=== PATIENT | female | born 1970 | race American Indian/Alaskan Native ===

== ENCOUNTER 2017-03-08 11:59 | Inpatient (IN) | payer BC ==
[2017-03-08 12:45] LABS: Basophils % (Auto) 1.1 % (0.0-1.8); Eosinophils % (Auto) 0.1 % (0.0-4.3); Hematocrit 46.8 % (30.3-42.9); Hemoglobin 15.5 gm/dl (10.1-14.3); Mean Corpuscular HGB Conc 33 % (30-34); Mean Corpuscular Hemoglobin 30 pg (28-32); Mean Corpuscular Volume 90 fl (79-97); Platelet Count 213 K/mm3 (140-440); Red Blood Count 5.22 M/mm3 (3.65-5.03); Red Cell Distribution Width 14.8 % (13.2-15.2); White Blood Count 13.3 K/mm3 (4.5-11.0)
[2017-03-08 13:00] LABS: Albumin 3.7 g/dL (3.9-5); Albumin/Globulin Ratio 0.7 %; Alkaline Phosphatase 102 units/L (35-129); BUN/Creatinine Ratio 26.25; Blood Urea Nitrogen 21 mg/dL (7-17); Calcium 9.8 mg/dL (8.4-10.2); Carbon Dioxide 30 mmol/L (22-30); Chloride 94.2 mmol/L (98-107); Glucose 241 mg/dL (65-100); Sodium 138 mmol/L (137-145)
--- NOTE | 2017-03-08 13:07 | XRay Report ---
AP CHEST :03/08/17 11:59:00 CLINICAL: Difficulty breathing. COMPARISON:06/08/13 FINDINGS: Central vascular congestion and cardiac enlargement. The pulmonary vessels are indistinct. Bilateral lung opacities, greater in the bases. No tubes or lines. Degenerative changes in the spine. IMPRESSION: CHF with bilateral pulmonary edema.
[2017-03-08] MEDS ORDERED: LEVAQUIN 750MG/150ML 750 MG/150 ML BAG IV ONE (13:08)
[2017-03-08] MEDS ORDERED: NACL 0.9% 250ML 250 ML IV ONE (13:09)
--- NOTE | 2017-03-08 13:09 | Emergency Department Report ---
ED General Adult HPI - General Chief complaint: Dyspnea/Respdistress Stated complaint: YANG Time Seen by Provider: 03/08/17 12:50 Source: patient, EMS (ems notes not available at time of chart dictation), RN notes reviewed, old records reviewed Mode of arrival: Stretcher Limitations: Physical Limitation - History of Present Illness Initial comments: This is a 46-year-old female, the patient is previously unknown to this provider. Patient has a past medical history of diabetes, obesity, peripheral edema. Does not have a history of congestive heart failure that she is aware of. The patient presents to the ER with a complaint of painless shortness of breath. It started a few days ago. It is constant. It worsens with physical exertion and it decreases with rest. Patient has chronic lower extremity swelling which is not new, worsening or different. No recent trips greater than 4 hours, no recent hospital admissions, no recent surgeries, does not take oral contraceptives. Patient describes cold-like symptoms prior to the onset of her current status, reports cough, cold, mucous production. No fevers or chills that she is aware of. -: Gradual Consistency: constant Improves with: rest Worsens with: movement Associated Symptoms: cough, loss of appetite, shortness of breath, weakness - Related Data Home Medications Medication Instructions Recorded Confirmed Last Taken Aspirin [Baby Aspirin] 1 tab PO DAILY 10/27/13 03/08/17 03/08/17 Furosemide [Furosemide] 1 tab PO DAILY 10/27/13 03/08/17 03/08/17 Spironolactone [Aldactone] 25 mg PO DAILY 10/27/13 03/08/17 03/08/17 Aspirin EC [Aspirin Enteric Coated 1 tab PO DAILY 05/20/14 03/08/17 03/08/17 TAB] Carvedilol [Coreg] 1 tab PO BID 05/20/14 03/08/17 03/07/17 Insulin Lispro Prot/Lispro 24 units SQ AMHY 05/20/14 03/08/17 03/08/17 [Humalog Mix 75/25] Multivitamin [Multi Vitamin Daily] 1 each PO DAILY 05/20/14 03/08/17 03/08/17 Insulin Lispro Prot/Lispro 14 units SC PMHY 03/08/17 03/08/17 03/07/17 Allergies Allergy/AdvReac Type Severity Reaction Status Date / Time No Known Allergies Allergy Verified 10/27/13 06:07 ED Review of Systems ROS: Stated complaint: YANG Other details as noted in HPI Constitutional: malaise, weakness Eyes: denies: vision change Respiratory: shortness of breath Cardiovascular: dyspnea on exertion Gastrointestinal: denies: abdominal pain, hematemesis, melena, hematochezia Genitourinary: denies: dysuria Musculoskeletal: arthralgia Skin: denies: lesions Neurological: weakness Psychiatric: anxiety ED Past Medical Hx - Past Medical History Previous Medical History?: Yes Hx Hypertension: Yes Hx Congestive Heart Failure: No Hx Diabetes: Yes Hx Asthma: No Hx COPD: No Hx Tuberculosis: No - Surgical History Hx Pacemaker: No Hx Internal Defibrillator: No - Social History Smoking Status: Never Smoker - Medications Home Medications: Home Medications Medication Instructions Recorded Confirmed Last Taken Type Aspirin [Baby Aspirin] 1 tab PO DAILY 10/27/13 03/08/17 03/08/17 History Furosemide [Furosemide] 1 tab PO DAILY 10/27/13 03/08/17 03/08/17 History Spironolactone [Aldactone] 25 mg PO DAILY 10/27/13 03/08/17 03/08/17 History Aspirin EC [Aspirin Enteric Coated 1 tab PO DAILY 05/20/14 03/08/17 03/08/17 History TAB] Carvedilol [Coreg] 1 tab PO BID 05/20/14 03/08/17 03/07/17 History Insulin Lispro Prot/Lispro 24 units SQ AMHY 05/20/14 03/08/17 03/08/17 History [Humalog Mix 75/25] Multivitamin [Multi Vitamin Daily] 1 each PO DAILY 05/20/14 03/08/17 03/08/17 History Insulin Lispro Prot/Lispro 14 units SC PMHY 03/08/17 03/08/17 03/07/17 History ED Physical Exam - General Limitations: Physical Limitation General appearance: alert, in distress, obese - Head Head exam: Present: atraumatic, normocephalic - Eye Eye exam: Present: normal appearance - ENT ENT exam: Present: normal exam, normal orophraynx, mucous membranes moist, normal external ear exam - Neck Neck exam: Present: normal inspection, full ROM - Respiratory Respiratory exam: Present: respiratory distress, decreased breath sounds - Cardiovascular Cardiovascular Exam: Present: normal rhythm, normal heart sounds. Absent: bradycardia, systolic murmur, diastolic murmur, rubs, gallop - GI/Abdominal GI/Abdominal exam: Present: soft, normal bowel sounds. Absent: distended, tenderness, guarding, rebound, rigid, pulsatile mass - Extremities Exam Extremities exam: Present: normal inspection, normal capillary refill, pedal edema - Back Exam Back exam: Present: normal inspection, full ROM. Absent: tenderness, CVA tenderness (R), CVA tenderness (L), muscle spasm, paraspinal tenderness, vertebral tenderness - Neurological Exam Neurological exam: Present: alert, oriented X3, other (Extraocular movements intact. Tongue midline. No facial droop. Facial sensation intact to light touch in the V1, V2, V3 distribution bilaterally. 5 and 5 strength in 4 extremities.. Sensation is intact to light touch in 4 extremities.). Absent: motor sensory deficit - Psychiatric Psychiatric exam: Present: normal affect, normal mood - Skin Skin exam: Present: warm, dry, intact, normal color. Absent: rash ED Course Vital Signs 03/08/17 03/08/17 03/08/17 12:12 13:26 13:39 Temperature Pulse Rate 114 H 120 H Respiratory 41 H 40 H 30 H Rate Blood Pressure 185/102 Blood Pressure [Left] O2 Sat by Pulse 88 92 96 Oximetry 03/08/17 03/08/17 13:42 14:55 Temperature 98.5 F Pulse Rate 100 H 90 Respiratory 40 H 22 Rate Blood Pressure Blood Pressure 123/71 117/61 [Left] O2 Sat by Pulse 100 100 Oximetry ED Medical Decision Making - Lab Data Result diagrams: 03/10/17 05:19 03/10/17 05:19 Vital Signs 03/08/17 03/08/17 03/08/17 12:12 13:26 13:39 Temperature Pulse Rate 114 H 120 H Respiratory 41 H 40 H 30 H Rate Blood Pressure 185/102 Blood Pressure [Left] O2 Sat by Pulse 88 92 96 Oximetry 03/08/17 13:42 Temperature 98.5 F Pulse Rate 100 H Respiratory 40 H Rate Blood Pressure Blood Pressure 123/71 [Left] O2 Sat by Pulse 100 Oximetry Lab Results 03/08/17 03/08/17 03/08/17 Range/Units 12:32 12:32 12:32 WBC 13.3 H (4.5-11.0) K/mm3 RBC 5.22 H (3.65-5.03) M/mm3 Hgb 15.5 H (10.1-14.3) gm/dl Hct 46.8 H (30.3-42.9) % MCV 90 (79-97) fl MCH 30 (28-32) pg MCHC 33 (30-34) % RDW 14.8 (13.2-15.2) % Plt Count 213 (140-440) K/mm3 Lymph % (Auto) 13.4 (13.4-35.0) % [place] % (Auto) 9.6 H (0.0-7.3) % Eos % (Auto) 0.1 (0.0-4.3) % Baso % (Auto) 1.1 (0.0-1.8) % Lymph # 1.8 (1.2-5.4) K/mm3 [place] # 1.3 H (0.0-0.8) K/mm3 Eos # 0.0 (0.0-0.4) K/mm3 Baso # 0.1 (0.0-0.1) K/mm3 Seg Neutrophils % 75.8 H (40.0-70.0) % Seg Neutrophils # 10.1 H (1.8-7.7) K/mm3 PT (12.2-14.9) Sec. INR (0.87-1.13) APTT (24.2-36.6) Sec. D-Dimer (0-234) ng/mlDDU POC ABG pH (7.35-7.45) POC ABG pCO2 (35-45) POC ABG pO2 (80-105) POC ABG HCO3 POC ABG Total CO2 POC ABG O2 Sat POC ABG Base Excess FiO2 % Sodium 138 (137-145) mmol/L Potassium 5.0 (3.6-5.0) mmol/L Chloride 94.2 L (98-107) mmol/L Carbon Dioxide 30 (22-30) mmol/L Anion Gap 19 mmol/L BUN 21 H (7-17) mg/dL Creatinine 0.8 (0.7-1.2) mg/dL Estimated GFR > 60 ml/min BUN/Creatinine Ratio 26.25 % Glucose 241 H (65-100) mg/dL Lactic Acid (0.7-2.0) mmol/L Calcium 9.8 (8.4-10.2) mg/dL Magnesium 2.30 (1.7-2.3) mg/dL Total Bilirubin 1.40 H (0.1-1.2) mg/dL AST 40 (5-40) units/L ALT 39 (7-56) units/L Alkaline Phosphatase 102 (35-129) units/L Total Creatine Kinase 231 H (30-135) units/L Troponin T < 0.010 (0.00-0.029) ng/mL NT-Pro-B Natriuret Pep 732.7 H (0-450) pg/mL Total Protein 9.0 H (6.3-8.2) g/dL Albumin 3.7 L (3.9-5) g/dL Albumin/Globulin Ratio 0.7 % 03/08/17 03/08/17 03/08/17 Range/Units 13:19 13:47 13:47 WBC (4.5-11.0) K/mm3 RBC (3.65-5.03) M/mm3 Hgb 13.9 (10.1-14.3) gm/dl Hct 43.9 H (30.3-42.9) % MCV (79-97) fl MCH (28-32) pg MCHC (30-34) % RDW (13.2-15.2) % Plt Count 211 (140-440) K/mm3 Lymph % (Auto) (13.4-35.0) % [place] % (Auto) (0.0-7.3) % Eos % (Auto) (0.0-4.3) % Baso % (Auto) (0.0-1.8) % Lymph # (1.2-5.4) K/mm3 [place] # (0.0-0.8) K/mm3 Eos # (0.0-0.4) K/mm3 Baso # (0.0-0.1) K/mm3 Seg Neutrophils % (40.0-70.0) % Seg Neutrophils # (1.8-7.7) K/mm3 PT (12.2-14.9) Sec. INR (0.87-1.13) APTT (24.2-36.6) Sec. D-Dimer (0-234) ng/mlDDU POC ABG pH 7.424 (7.35-7.45) POC ABG pCO2 53.5 H (35-45) POC ABG pO2 31 L (80-105) POC ABG HCO3 35.0 POC ABG Total CO2 37 POC ABG O2 Sat 59 POC ABG Base Excess 11 FiO2 21 % Sodium (137-145) mmol/L Potassium (3.6-5.0) mmol/L Chloride (98-107) mmol/L Carbon Dioxide (22-30) mmol/L Anion Gap mmol/L BUN (7-17) mg/dL Creatinine (0.7-1.2) mg/dL Estimated GFR ml/min BUN/Creatinine Ratio % Glucose (65-100) mg/dL Lactic Acid 1.40 (0.7-2.0) mmol/L Calcium (8.4-10.2) mg/dL Magnesium (1.7-2.3) mg/dL Total Bilirubin (0.1-1.2) mg/dL AST (5-40) units/L ALT (7-56) units/L Alkaline Phosphatase (35-129) units/L Total Creatine Kinase (30-135) units/L Troponin T (0.00-0.029) ng/mL NT-Pro-B Natriuret Pep (0-450) pg/mL Total Protein (6.3-8.2) g/dL Albumin (3.9-5) g/dL Albumin/Globulin Ratio % 03/08/ Range/Units 13:47 WBC (4.5-11.0) K/mm3 RBC (3.65-5.03) M/mm3 Hgb (10.1-14.3) gm/dl Hct (30.3-42.9) % MCV (79-97) fl MCH (28-32) pg MCHC (30-34) % RDW (13.2-15.2) % Plt Count (140-440) K/mm3 Lymph % (Auto) (13.4-35.0) % [place] % (Auto) (0.0-7.3) % Eos % (Auto) (0.0-4.3) % Baso % (Auto) (0.0-1.8) % Lymph # (1.2-5.4) K/mm3 [place] # (0.0-0.8) K/mm3 Eos # (0.0-0.4) K/mm3 Baso # (0.0-0.1) K/mm3 Seg Neutrophils % (40.0-70.0) % Seg Neutrophils # (1.8-7.7) K/mm3 PT 15.1 H (12.2-14.9) Sec. INR 1.13 (0.87-1.13) APTT 24.1 L (24.2-36.6) Sec. D-Dimer 621.89 H (0-234) ng/mlDDU POC ABG pH (7.35-7.45) POC ABG pCO2 (35-45) POC ABG pO2 (80-105) POC ABG HCO3 POC ABG Total CO2 POC ABG O2 Sat POC ABG Base Excess FiO2 % Sodium (137-145) mmol/L Potassium (3.6-5.0) mmol/L Chloride (98-107) mmol/L Carbon Dioxide (22-30) mmol/L Anion Gap mmol/L BUN (7-17) mg/dL Creatinine (0.7-1.2) mg/dL Estimated GFR ml/min BUN/Creatinine Ratio % Glucose (65-100) mg/dL Lactic Acid (0.7-2.0) mmol/L Calcium (8.4-10.2) mg/dL Magnesium (1.7-2.3) mg/dL Total Bilirubin (0.1-1.2) mg/dL AST (5-40) units/L ALT (7-56) units/L Alkaline Phosphatase (35-129) units/L Total Creatine Kinase (30-135) units/L Troponin T (0.00-0.029) ng/mL NT-Pro-B Natriuret Pep (0-450) pg/mL Total Protein (6.3-8.2) g/dL Albumin (3.9-5) g/dL Albumin/Globulin Ratio % - EKG Data -: EKG Interpreted by Or EKG shows normal: sinus rhythm - EKG Data 03/08/17 14:50 Sinus, 96 bpm, normal axis, motion artifact, poor R wave progression, no chest pain, abnormal EKG, not morphologically consistent with STEMI - Radiology Data Radiology results: report reviewed, image reviewed X-ray of the chest demonstrates CHF/pulmonary vascular congestion - Medical Decision Making Differential diagnosis: Pneumonia, congestive heart failure, myocarditis, pericarditis, cardiomyopathy, pulmonary embolus Assessment and plan: 46-year-old female with nonspecific URI-like symptoms, with painless shortness of breath and orthopnea. Initially very tachypneic, saturating at 60/70% on room air, ABG confirms hypoxemic respiratory failure. Patient started on BiPAP therapy, and she improved greatly. She is currently saturating at 96% on BiPAP, and her initially diminished breath sounds are somewhat improved. No history of reactive airway disease that she is aware of. No pulmonary embolus or DVT risk factors, patient was too symptomatic to lay in a supine position, therefore I will treat the patient empirically with a heparin drip. She is also given a bolus of Lasix, and given nonspecific symptoms will cover with levaquin, patient from the community, does not have risk factors for multidrug resistant organisms. Bedside ultrasound of the heart demonstrates hyperdynamic left ventricle, no obvious large effusion. Case discussed with critical care physician, Dr. Merritt, he will see the patient in consultation. Case presented to the Hospital physician, Dr. Reilly, he accepts the patient to his service. Critical Care Time: Yes Critical care time in (mins) excluding proc time.: 45 Critical care attestation.: If time is entered above; I have spent that time in minutes in the direct care of this critically ill patient, excluding procedure time. ED Disposition Clinical Impression: Respiratory failure Qualifiers: Chronicity: acute Respiratory failure complication: unspecified whether with hypoxia or hypercapnia Qualified Code(s): J96.00 - Acute respiratory failure, unspecified whether with hypoxia or hypercapnia Disposition: DC-09 OP ADMIT IP TO THIS HOSP Is pt being admited?: Yes Condition: Critical
[2017-03-08] MEDS ORDERED: LASIX IV ONE (13:13)
[2017-03-08 13:22] LABS: ISTAT Base Excess 11; ISTAT DEVICE 0; ISTAT PCO2 53.5 (35-45); ISTAT PH 7.424 (7.35-7.45); ISTAT PO2 31 (80-105); ISTAT SO2 59; ISTAT TCO2 37
[2017-03-08] MEDS ORDERED: HEPARIN 10,000 UNITS/10 ML IV ONE (13:27)
[2017-03-08] MEDS ORDERED: NACL 0.9% 250ML 250 ML ONE (13:32)
[2017-03-08 13:37] LABS: Anion Gap 19 mmol/L
[2017-03-08 13:38] LABS: Alanine Aminotransferase 39 units/L (7-56)
[2017-03-08 13:54] LABS: Magnesium 2.3 mg/dL (1.7-2.3)
[2017-03-08] MEDS ORDERED: TYLENOL PO PRN (13:54)
[2017-03-08] MEDS ORDERED: DULCOLAX PR PRN (13:54)
[2017-03-08] MEDS ORDERED: ZOFRAN IV PRN (13:54)
[2017-03-08] MEDS ORDERED: PROVENTIL IH PRN (13:54)
[2017-03-08] MEDS ORDERED: MILK OF MAGNESIA PO PRN (13:54)
[2017-03-08 13:59] LABS: Hematocrit 43.9 % (30.3-42.9); Hemoglobin 13.9 gm/dl (10.1-14.3)
[2017-03-08] MEDS ORDERED: HEPARIN/ 0.45% NACL-25,000 UNIT/500 ML 25,000 UNIT/500 ML BAG IV SCH (14:00)
--- NOTE | 2017-03-08 14:02 | History and Physical Report ---
History of Present Illness Chief complaint: I zack [place] History of present illness: 46 YO Female with Obesity, HTN, DM, presents to ED for evaluation. Pt states that she has experienced shortness of breath for the past 3 days, with worsening symptoms over the past 8 hours. Pt states that symptoms are now constant, worse with exertion, and improved with rest. Pt denies fever, chills, CP, Palpitations, NVD, Syncope, Prolonged travel/immobility, individual/family history of DVT/PE, hemoptysis, unilateral leg swelling, calf pain, Trauma, productive cough, skin rash, BRBPR, or recent ill contacts. Past History Past Medical History: diabetes, hypertension Past Surgical History: No surgical history, Other (reviewed) Social history: single. denies: smoking, alcohol abuse Family history: diabetes, hypertension Medications and Allergies Allergies Allergy/AdvReac Type Severity Reaction Status Date / Time No Known Allergies Allergy Verified 10/27/13 06:07 Home Medications Medication Instructions Recorded Confirmed Last Taken Type Aspirin [Baby Aspirin] 1 tab PO DAILY 10/27/13 05/20/14 10/27/13 05:30 History Furosemide [Furosemide] 1 tab PO DAILY 10/27/13 05/20/14 04/28/14 08:15 History 40 Spironolactone [Aldactone] 25 mg PO DAILY 10/27/13 05/20/14 04/28/14 08:15 History 25 Aspirin EC [Aspirin Enteric Coated 1 tab PO DAILY 05/20/14 05/20/14 Unknown History TAB] Carvedilol [Coreg] 1 tab PO BID 05/20/14 05/20/14 Unknown History Insulin Lispro Prot/Lispro 24 units SQ BID 05/20/14 05/20/14 Unknown History [Humalog Mix 75/25] Multivitamin [Multi Vitamin Daily] 1 each PO DAILY 05/20/14 05/20/14 Unknown History Active Meds: Active Medications Acetaminophen (Tylenol) 650 mg PO Q4H PRN PRN Reason: Pain MILD(1-3)/Fever >100.5/WILDE Albuterol (Proventil) 2.5 mg IH Q4H PRN PRN Reason: Shortness Of Breath Bisacodyl (Dulcolax) 10 mg DE QDAY PRN PRN Reason: Constipation unrelieved by MOM Famotidine (Pepcid) 20 mg PO BID STEVEN Furosemide (Lasix) 40 mg IV 0600,1800 [facility] Levofloxacin/Dextrose (Levaquin 750mg/150ml) 750 mg in 150 mls @ 100 mls/hr IV ONCE ONE Stop: 03/08/17 14:37 Last Admin: 03/08/17 13:42 Dose: 100 mls/hr Heparin Sodium/Sodium Chloride (Heparin/ 0.45% Nacl-25,000 Unit/500 Ml) 25,000 unit in 500 mls @ 30 mls/hr IV TITR STEVEN; 1,500 UNITS/HR PRN Reason: Protocol Magnesium Hydroxide (Milk Of Magnesia) 30 ml PO Q4H PRN PRN Reason: Constipation Ondansetron HCl (Zofran) 4 mg IV Q8H PRN PRN Reason: N/V unrelieved by Reglan Review of Systems Constitutional: no weight loss, no weight gain, no fever, no chills Ears, nose, mouth and throat: no ear pain, no ear discharge, no tinnitis, no decreased hearing, no nose pain Breasts: no change in shape, no swelling, no mass Cardiovascular: orthopnea, edema, shortness of breath, dyspnea on exertion, paroxysmal nocturnal dyspnea, no chest pain, no palpitations, no rapid/ irregular heart beat, no syncope Respiratory: shortness of breath, no cough, no excessive sputum, no hemoptysis Gastrointestinal: no abdominal pain, no nausea, no vomiting, no diarrhea, no constipation, no change in bowel habits, no hematemesis Genitourinary Female: no pelvic pain, no flank pain, no menorrhagia, no dysuria Rectal: no pain, no incontinence, no bleeding Musculoskeletal: no neck stiffness, no neck pain, no shooting arm pain, no arm numbness/tingling, no low back pain, no shooting leg pain Integumentary: no rash, no pruritis, no redness, no sores, no wounds, no jaundice, no boils Neurological: no head injury, no transient paralysis, no paralysis, no weakness , no parathesias, no numbness, no tingling, no seizures, no syncope Psychiatric: no anxiety, no memory loss, no change in sleep habits, no sleep disturbances, no insomnia, no hypersomnia, no change in appetite, no change in libido, no suicidal ideation, no disorientation, no hallucinations Endocrine: no cold intolerance, no heat intolerance, no polyphagia, no excessive thirst, no polydipsia, no polyuria, no nocturia, no excessive sweating , no flushing, no weight change Hematologic/Lymphatic: no easy bruising, no easy bleeding Allergic/Immunologic: no urticaria, no allergic rhinitis, no wheezing Exam - Constitutional Vitals: Temp Pulse Resp BP Pulse Ox 98.5 F 100 H 40 H 123/71 100 03/08/17 13:42 03/08/17 13:42 03/08/17 13:42 03/08/17 13:42 03/08/17 13:42 General appearance: Present: mild distress, obese - EENT Eyes: Present: PERRL ENT: hearing intact, clear oral mucosa - Neck Neck: Present: supple, normal ROM - Respiratory Respiratory effort: labored Respiratory: bilateral: diminished, rhonchi - Cardiovascular Rhythm: regular (tachycardic) Heart Sounds: Present: S1 & S2 - Extremities Extremities: pulses symmetrical, No edema Extremity abnormal: edema Peripheral Pulses: within normal limits - Abdominal General gastrointestinal: Present: soft, non-tender, non-distended, normal bowel sounds Female genitourinary: Present: normal - Integumentary Integumentary: Present: clear, warm, dry - Musculoskeletal Musculoskeletal: gait normal, strength equal bilaterally - Psychiatric Psychiatric: appropriate mood/affect, intact judgment & insight, agitated - Neurologic Neurologic: CNII-XII intact, moves all extremities Results - Labs CBC & Chem 7: 03/08/17 13:47 03/08/17 12:32 Labs: Abnormal lab results 03/08/17 03/08/17 03/08/17 Range/Units 12:32 12:32 12:32 WBC 13.3 H (4.5-11.0) K/mm3 RBC 5.22 H (3.65-5.03) M/mm3 Hgb 15.5 H (10.1-14.3) gm/dl Hct 46.8 H (30.3-42.9) % [place] % (Auto) 9.6 H (0.0-7.3) % [place] # 1.3 H (0.0-0.8) K/mm3 Seg Neutrophils % 75.8 H (40.0-70.0) % Seg Neutrophils # 10.1 H (1.8-7.7) K/mm3 POC ABG pCO2 (35-45) POC ABG pO2 (80-105) Chloride 94.2 L (98-107) mmol/L BUN 21 H (7-17) mg/dL Glucose 241 H (65-100) mg/dL Total Bilirubin 1.40 H (0.1-1.2) mg/dL Total Creatine Kinase 231 H (30-135) units/L NT-Pro-B Natriuret Pep 732.7 H (0-450) pg/mL Total Protein 9.0 H (6.3-8.2) g/dL Albumin 3.7 L (3.9-5) g/dL 03/08/17 03/08/17 Range/Units 13:19 13:47 WBC (4.5-11.0) K/mm3 RBC (3.65-5.03) M/mm3 Hgb (10.1-14.3) gm/dl Hct 43.9 H (30.3-42.9) % [place] % (Auto) (0.0-7.3) % [place] # (0.0-0.8) K/mm3 Seg Neutrophils % (40.0-70.0) % Seg Neutrophils # (1.8-7.7) K/mm3 POC ABG pCO2 53.5 H (35-45) POC ABG pO2 31 L (80-105) Chloride (98-107) mmol/L BUN (7-17) mg/dL Glucose (65-100) mg/dL Total Bilirubin (0.1-1.2) mg/dL Total Creatine Kinase (30-135) units/L NT-Pro-B Natriuret Pep (0-450) pg/mL Total Protein (6.3-8.2) g/dL Albumin (3.9-5) g/dL Assessment and Plan - Patient Problems (1) Acute hypoxemic respiratory failure Current Visit: Yes Status: Acute Plan to address problem: Supplemental oxygen, nebs, aspiration precaution, pulmonary consulted, NIPPV, ABG, (2) CHF (congestive heart failure) Current Visit: Yes Status: Suspected Qualifiers: Congestive heart failure type: C Congestive heart failure chronicity: C Plan to address problem: remote telemetry, cardiology consulted, D dimer, CTA chest, echo, thyroid panel , fluid restriction, afterload reduction, diuresis, (3) Pneumonia Current Visit: Yes Status: Acute Qualifiers: Pneumonia type: P Aspiration pneumonia type: A Laterality: L Lung location: L Plan to address problem: IV abx, nebs, supplemental oxygen, blood cultures, supportive care. (4) HTN (hypertension) Current Visit: Yes Status: Acute Qualifiers: Hypertension type: H Plan to address problem: monitor bp q shift, (5) Diabetes Current Visit: Yes Status: Acute Qualifiers: Diabetes mellitus type: D Diabetes mellitus complication status: D Diabetes mellitus complication detail: D Diabetic retinopathy severity: D Proliferative retinopathy type: P Diabetes mellitus macular edema: D Diabetes mellitus intermediate accountant insulin use: D Laterality: L Chronic kidney disease stage: C Plan to address problem: ADA diet, insulin accu check (6) Metabolic syndrome Current Visit: Yes Status: Acute Plan to address problem: Balanced diet, increased physical activity, (7) DVT prophylaxis Current Visit: Yes Status: Acute
[2017-03-08 14:09] LABS: INR 1.13 (0.87-1.13)
[2017-03-08 14:10] LABS: Partial Thromboplastin Time 24.1 Sec. (24.2-36.6)
[2017-03-08] MEDS ORDERED: LOVENOX SUB-Q SCH (15:15)
[2017-03-08] MEDS ORDERED: NACL ONE (15:38)
[2017-03-08] MEDS: LASIX IV SCH (17:08)
[2017-03-08] MEDS: ROCEPHIN/NS 1 GM/50 ML 1 GM/50 ML BAG IV SCH (17:08)
[2017-03-08] MEDS: ZITHROMAX 500 MG in NACL 0.9% 250ML 250 ML IV SCH (17:51)
[2017-03-08] MEDS: PEPCID PO SCH (21:12)
[2017-03-09] MEDS: LASIX IV SCH ×2 (05:09→17:07)
--- NOTE | 2017-03-09 06:44 | Consultation ---
History of Present Illness Consult date: 03/09/17 Consult reason: shortness of breath History of present illness: 46 YO Female with Obesity, HTN, DM, presents to ED for evaluation. Pt states that she has experienced shortness of breath for the past 3 days, with worsening symptoms over the past 8 hours. Pt states that symptoms are now constant, worse with exertion, and improved with rest. Pt denies chest pain, orthopnea, pnd, palpitations, dizziness, or syncope. Past History Past Medical History: diabetes, hypertension Past Surgical History: No surgical history, Other (reviewed) Social history: single. denies: smoking, alcohol abuse Family history: diabetes, hypertension Medications and Allergies Allergies Allergy/AdvReac Type Severity Reaction Status Date / Time No Known Allergies Allergy Verified 10/27/13 06:07 Home Medications Medication Instructions Recorded Confirmed Last Taken Type Aspirin [Baby Aspirin] 1 tab PO DAILY 10/27/13 03/08/17 03/08/17 History Furosemide [Furosemide] 1 tab PO DAILY 10/27/13 03/08/17 03/08/17 History Spironolactone [Aldactone] 25 mg PO DAILY 10/27/13 03/08/17 03/08/17 History Aspirin EC [Aspirin Enteric Coated 1 tab PO DAILY 05/20/14 03/08/17 03/08/17 History TAB] Carvedilol [Coreg] 1 tab PO BID 05/20/14 03/08/17 03/07/17 History Insulin Lispro Prot/Lispro 24 units SQ AMHY 05/20/14 03/08/17 03/08/17 History [Humalog Mix 75/25] Multivitamin [Multi Vitamin Daily] 1 each PO DAILY 05/20/14 03/08/17 03/08/17 History Insulin Lispro Prot/Lispro 14 units SC PMHY 03/08/17 03/08/17 03/07/17 History Active Meds: Active Medications Acetaminophen (Tylenol) 650 mg PO Q4H PRN PRN Reason: Pain MILD(1-3)/Fever >100.5/WILDE Last Admin: 03/09/17 04:52 Dose: 650 mg Albuterol (Proventil) 2.5 mg IH Q4H PRN PRN Reason: Shortness Of Breath Bisacodyl (Dulcolax) 10 mg [place] QDAY PRN PRN Reason: Constipation unrelieved by MOM Famotidine (Pepcid) 20 mg PO BID [facility] Last Admin: 03/08/17 21:12 Dose: 20 mg Furosemide (Lasix) 40 mg IV 0600,1800 [facility] Last Admin: 03/09/17 05:09 Dose: 40 mg Heparin Sodium/Sodium Chloride (Heparin/ 0.45% Nacl-25,000 Unit/500 Ml) 25,000 unit in 500 mls @ 30 mls/hr IV TITR STEVEN; 1,500 UNITS/HR PRN Reason: Protocol Last Titration: 03/09/17 01:00 Dose: 1,350 units/hr, 27 mls/hr Azithromycin 500 mg/ Sodium (Chloride) 250 mls @ 250 mls/hr IV Q24H STEVEN PRN Reason: Protocol Last Admin: 03/08/17 17:51 Dose: 250 mls/hr Ceftriaxone Sodium (Rocephin/Ns 1 Gm/50 Ml) 1 gm in 50 mls @ 100 mls/hr IV Q24H STEVEN PRN Reason: Protocol Last Admin: 03/08/17 17:08 Dose: 100 mls/hr Magnesium Hydroxide (Milk Of Magnesia) 30 ml PO Q4H PRN PRN Reason: Constipation Ondansetron HCl (Zofran) 4 mg IV Q8H PRN PRN Reason: N/V unrelieved by Reglan Review of Systems All systems: negative (pertinent positives in HPI) Physical Examination Vital Signs Pulse Resp BP Pulse Ox 114 H 41 H 185/102 88 03/08/17 12:12 03/08/17 12:12 03/08/17 12:12 03/08/17 12:12 General appearance: no acute distress HEENT: Positive: PERRL Neck: Positive: neck supple Cardiac: Positive: Reg Rate and Rhythm, S1/S2 Lungs: Positive: clear to auscultation Neuro: Positive: Grossly Intact Abdomen: Positive: Unremarkable Extremities: Absent: normal Results 03/08/17 13:47 03/08/17 12:32 Assessment and Plan Acute hypoxemic respiratory failure shortness of breath Pneumonia HTN (hypertension) Diabetes Antibiotics per primary Gentle diuresis as tolerated Check echo
[2017-03-09 06:56] LABS: ISTAT Base Excess 10; ISTAT HCO3 36.6; ISTAT PCO2 72.1 (35-45); ISTAT PH 7.314 (7.35-7.45); ISTAT PO2 75 (80-105); ISTAT SO2 93; ISTAT TCO2 39
[2017-03-09] MEDS ORDERED: NACL ONE (08:19)
--- NOTE | 2017-03-09 08:55 | Cat Scan Report ---
FINAL REPORT EXAM: CT ANGIO CHEST HISTORY: dypsnea TECHNIQUE: CT imaging obtained through the chest in pulmonary angiographic phase following intravenous administration of contrast. Transaxial, Coronal and sagittal reformats with maximal intensity projections are provided. PRIORS: None. FINDINGS: Main pulmonary artery is slightly enlarged. No saddle pulmonary embolism. Opacification of the pulmonary arterial tree is insufficient for more detailed evaluation of emboli.. No pericardial effusion. Scattered coronary calcification. Thoracic aorta is normal in course and caliber. No periaortic fluid or stranding. Small bilateral pleural effusions with associated compressive atelectasis. Patchy upper and lower lung airspace disease. Imaged portion of the upper abdomen is remarkable for thickening of the partially imaged left adrenal gland without focal nodule. The superficial soft tissues are unremarkable. No acute bony abnormality or worrisome osseous lesions identified. Thoracic diffuse idiopathic skeletal hyperostosis. IMPRESSION: No large central pulmonary embolism. Contrast opacification of the pulmonary arterial tree is insufficient for more detailed evaluation of emboli. Bilateral pleural effusion with associated atelectasis. Multifocal airspace disease is present. PA and lateral chest radiographic follow-up to resolution is recommended.
--- NOTE | 2017-03-09 09:21 | Consultation ---
History of Present Illness Consult date: 03/09/17 Requesting physician: NICHOLE JOHNSON Reason for consult: hypoxemia History of present illness: 46 y/o female, obese, admitted with acute respiratory failure. CXR shows cardiomegaly with pulmonary vascular congestion. Required bipap as her PaO2 on room air was in the 30's. Originally was requested for ICU but down graded to Medicine floor. Patient has had an echo and CT scan this am. CT is negative for PE but does show bilateral pleural effusions and diffuse ground glass with some atelectasis. Patient is awake and alert and oriented on Bipa 20/8 and comfortable. Unfortunately she is still on 100% FiO2. She received lasix, last night and this am. Remainder is negative. Past History Past Medical History: diabetes, hypertension Past Surgical History: No surgical history, Other (reviewed) Social history: single. denies: smoking, alcohol abuse Family history: diabetes, hypertension Medications and Allergies Allergies Allergy/AdvReac Type Severity Reaction Status Date / Time No Known Allergies Allergy Verified 10/27/13 06:07 Home Medications Medication Instructions Recorded Confirmed Last Taken Type Aspirin [Baby Aspirin] 1 tab PO DAILY 10/27/13 03/08/17 03/08/17 History Furosemide [Furosemide] 1 tab PO DAILY 10/27/13 03/08/17 03/08/17 History Spironolactone [Aldactone] 25 mg PO DAILY 10/27/13 03/08/17 03/08/17 History Aspirin EC [Aspirin Enteric Coated 1 tab PO DAILY 05/20/14 03/08/17 03/08/17 History TAB] Carvedilol [Coreg] 1 tab PO BID 05/20/14 03/08/17 03/07/17 History Insulin Lispro Prot/Lispro 24 units SQ AMHY 05/20/14 03/08/17 03/08/17 History [Humalog Mix 75/25] Multivitamin [Multi Vitamin Daily] 1 each PO DAILY 05/20/14 03/08/17 03/08/17 History Insulin Lispro Prot/Lispro 14 units SC PMHY 03/08/17 03/08/17 03/07/17 History Active Meds: Active Medications Acetaminophen (Tylenol) 650 mg PO Q4H PRN PRN Reason: Pain MILD(1-3)/Fever >100.5/WILDE Last Admin: 03/09/17 04:52 Dose: 650 mg Albuterol (Proventil) 2.5 mg IH Q4H PRN PRN Reason: Shortness Of Breath Bisacodyl (Dulcolax) 10 mg [place] QDAY PRN PRN Reason: Constipation unrelieved by MOM Famotidine (Pepcid) 20 mg PO BID [facility] Last Admin: 03/08/17 21:12 Dose: 20 mg Furosemide (Lasix) 40 mg IV 0600,1800 [facility] Last Admin: 03/09/17 05:09 Dose: 40 mg Furosemide (Lasix) 40 mg IV ONCE ONE Stop: 03/09/17 11:01 Azithromycin 500 mg/ Sodium (Chloride) 250 mls @ 250 mls/hr IV Q24H STEVEN PRN Reason: Protocol Last Admin: 03/08/17 17:51 Dose: 250 mls/hr Ceftriaxone Sodium (Rocephin/Ns 1 Gm/50 Ml) 1 gm in 50 mls @ 100 mls/hr IV Q24H STEVEN PRN Reason: Protocol Last Admin: 03/08/17 17:08 Dose: 100 mls/hr Magnesium Hydroxide (Milk Of Magnesia) 30 ml PO Q4H PRN PRN Reason: Constipation Ondansetron HCl (Zofran) 4 mg IV Q8H PRN PRN Reason: N/V unrelieved by Reglan Review of Systems All systems: negative Physical Examination Vital signs: Vital Signs Pulse Resp BP Pulse Ox 114 H 41 H 185/102 88 03/08/17 12:12 03/08/17 12:12 03/08/17 12:12 03/08/17 12:12 General appearance: no acute distress, alert, other (morbidly obese) Eyes: non-icteric ENT: oropharynx moist, other (Full face mask bipap therapy present) Neck: supple (and large in circumference) Effort: mildly labored Ascultation: Bilateral: rales (very faint at the bases) Percussion: Bilateral: not dull Cardiovascular: regular rate and rhythm Gastrointestinal: normoactive bowel sounds, soft, non-tender Extremities: no edema Musculoskeletal: no deformities normal mental status, non-focal exam mood appropriate, affect normal Results - Laboratory Findings CBC and BMP: 03/08/17 13:47 03/08/17 12:32 ABG POC ABG pH 7.314 (7.35-7.45) L 03/09/17 06:50 POC ABG pCO2 72.1 (35-45) H 03/09/17 06:50 POC ABG pO2 75 (80-105) L 03/09/17 06:50 POC ABG HCO3 36.6 03/09/17 06:50 POC ABG Total CO2 39 03/09/17 06:50 POC ABG O2 Sat 93 03/09/17 06:50 PT/INR, D-dimer PT 15.1 Sec. (12.2-14.9) H 03/08/17 13:47 INR 1.13 (0.87-1.13) 03/08/17 13:47 D-Dimer 621.89 ng/mlDDU (0-234) H 03/08/17 13:47 Abnormal lab findings: Abnormal Labs 03/08/17 03/08/17 03/08/17 17:53 18:54 21:21 Heparin Anti-Xa Level 0.81 H POC ABG pH POC ABG pCO2 POC ABG pO2 POC Glucose 158 H 114 H 03/09/17 03/09/17 06:05 06:50 Heparin Anti-Xa Level POC ABG pH 7.314 L POC ABG pCO2 72.1 H POC ABG pO2 75 L POC Glucose 144 H - Diagnostic Findings Chest x-ray: image reviewed (cardiomegaly with pulmonary edema) Assessment and Plan 46 y/o female with acute respiratory failure, most likely secondary to volume overload and pulmonary edema with fever. 1. Will give an additional dose of lasix today and continue BID dosing. 2. Strict I/O and daily weights recommended 3. Obtains sputum sample if possible. 4. Needs UA C&S if not already drawn. 5. Follow up blood cultures 6. Continue bipap, follow repeat ABG and wean FiO2 as tolerated 7. Follow up echo 8. Likely needs outpatient sleep study as well given morbid obesity and chronic CO2 retention Thank you for this consult. Will continue to follow along with you.
[2017-03-09] MEDS: PEPCID PO SCH ×2 (09:22→21:42)
[2017-03-09 09:49] LABS: ISTAT Base Excess 11; ISTAT HCO3 36.6; ISTAT PCO2 67.9 (35-45); ISTAT PH 7.339 (7.35-7.45); ISTAT PO2 82 (80-105); ISTAT SO2 95; ISTAT TCO2 39
[2017-03-09] MEDS ORDERED: LASIX IV ONE (11:00)
[2017-03-09] MEDS: ZITHROMAX 500 MG in NACL 0.9% 250ML 250 ML IV SCH (16:18)
[2017-03-09] MEDS: BABY ASPIRIN PO SCH (16:18)
[2017-03-09] MEDS: NOVOLOG SUB-Q SCH ×2 (16:19→21:43)
[2017-03-09] MEDS: ROCEPHIN/NS 1 GM/50 ML 1 GM/50 ML BAG IV SCH (17:08)
--- NOTE | 2017-03-09 19:37 | Progress Note ---
Assessment and Plan Assessment and plan: 46 years old morbidly obese -[place] female with hypertension and diabetes admitted for severe shortness of breath 1. Acute respiratory failure hypoxemic hypercapnic Likely secondary to acute heart failure without fluid overload and presumed bilateral pneumonia Blood cultures obtained and started on IV antibiotics Also started on diuresis with IV Lasix Placed on BiPAP, currently FiO2 100% Pulmonary consulted and following 2. Acute likely systolic heart failure Started on diuresis weight IV Lasix Strict monitor I's and O's Add beta hemant No SAMANTHA inhibitor due to hyperkalemia 3. Presumed pneumonia/sepsis See above discussion Obtain sputum cultures also, as well as, UA/urine culture 4. Diabetes Start insulin 70/30 a low-grade SSI based on chest to assess insulin requirements 5. Morbid obesity/ROBBIN/OHS Will need outpatient pulmonary follow-up for sleep study, PFTs On BiPAP 6. DVT/GI prophylaxis History Interval history: SOB, on BiPAP family present in the room Hospitalist Physical - Constitutional Vitals: Temp Pulse Resp BP Pulse Ox 100.7 F H 84 18 111/70 95 03/09/17 19:28 03/09/17 19:28 03/09/17 19:28 03/09/17 19:28 03/09/17 19:28 General appearance: Present: no acute distress, obese (morbidly) - EENT Eyes: Present: PERRL, EOM intact. Absent: scleral icterus, conjunctival injection - Neck Neck: Present: supple. Absent: enlarged thyroid, masses or JVD - Respiratory Respiratory effort: labored, other (on BiPAP) Respiratory: bilateral: diminished, rales, negative: rhonchi, wheezing - Cardiovascular Rhythm: other (tachycardic) - Extremities Extremities: no ischemia - Abdominal General gastrointestinal: soft, non-tender, non-distended, normal bowel sounds - Psychiatric Psychiatric: cooperative - Neurologic Neurologic: CNII-XII intact, no focal deficits Results - Labs CBC & Chem 7: 03/10/17 05:19 03/10/17 05:19 Labs: Laboratory Last Values WBC 13.3 K/mm3 (4.5-11.0) H 03/08/17 12:32 RBC 5.22 M/mm3 (3.65-5.03) H 03/08/17 12:32 Hgb 13.9 gm/dl (10.1-14.3) 03/08/17 13:47 Hct 43.9 % (30.3-42.9) H 03/08/17 13:47 MCV 90 fl (79-97) 03/08/17 12:32 MCH 30 pg (28-32) 03/08/17 12:32 MCHC 33 % (30-34) 03/08/17 12:32 RDW 14.8 % (13.2-15.2) 03/08/17 12:32 Plt Count 211 K/mm3 (140-440) 03/08/17 13:47 Lymph % (Auto) 13.4 % (13.4-35.0) 03/08/17 12:32 [place] % (Auto) 9.6 % (0.0-7.3) H 03/08/17 12:32 Eos % (Auto) 0.1 % (0.0-4.3) 03/08/17 12:32 Baso % (Auto) 1.1 % (0.0-1.8) 03/08/17 12:32 Lymph # 1.8 K/mm3 (1.2-5.4) 03/08/17 12:32 [place] # 1.3 K/mm3 (0.0-0.8) H 03/08/17 12:32 Eos # 0.0 K/mm3 (0.0-0.4) 03/08/17 12:32 Baso # 0.1 K/mm3 (0.0-0.1) 03/08/17 12:32 Seg Neutrophils % 75.8 % (40.0-70.0) H 03/08/17 12:32 Seg Neutrophils # 10.1 K/mm3 (1.8-7.7) H 03/08/17 12:32 PT 15.1 Sec. (12.2-14.9) H 03/08/17 13:47 INR 1.13 (0.87-1.13) 03/08/17 13:47 APTT 24.1 Sec. (24.2-36.6) L 03/08/17 13:47 D-Dimer 621.89 ng/mlDDU (0-234) H 03/08/17 13:47 Heparin Anti-Xa Level 0.58 U.I./ml (0.3-0.7) 03/08/17 23:32 POC ABG pH 7.339 (7.35-7.45) L 03/09/17 09:41 POC ABG pCO2 67.9 (35-45) H 03/09/17 09:41 POC ABG pO2 82 (80-105) 03/09/17 09:41 POC ABG HCO3 36.6 03/09/17 09:41 POC ABG Total CO2 39 03/09/17 09:41 POC ABG O2 Sat 95 03/09/17 09:41 POC ABG Base Excess 11 03/09/17 09:41 FiO2 100 % 03/09/17 09:41 Sodium 138 mmol/L (137-145) 03/08/17 12:32 Potassium 5.0 mmol/L (3.6-5.0) 03/08/17 12:32 Chloride 94.2 mmol/L (98-107) L 03/08/17 12:32 Carbon Dioxide 30 mmol/L (22-30) 03/08/17 12:32 Anion Gap 19 mmol/L 03/08/17 12:32 BUN 21 mg/dL (7-17) H 03/08/17 12:32 Creatinine 0.8 mg/dL (0.7-1.2) 03/08/17 12:32 Estimated GFR > 60 ml/min 03/08/17 12:32 BUN/Creatinine Ratio 26.25 % 03/08/17 12:32 Glucose 241 mg/dL (65-100) H 03/08/17 12:32 POC Glucose 169 (70-105) H 03/09/17 16:13 Lactic Acid 1.40 mmol/L (0.7-2.0) 03/08/17 13:47 Calcium 9.8 mg/dL (8.4-10.2) 03/08/17 12:32 Magnesium 2.30 mg/dL (1.7-2.3) 03/08/17 12:32 Total Bilirubin 1.40 mg/dL (0.1-1.2) H 03/08/17 12:32 AST 40 units/L (5-40) 03/08/17 12:32 ALT 39 units/L (7-56) 03/08/17 12:32 Alkaline Phosphatase 102 units/L (35-129) 03/08/17 12:32 Total Creatine Kinase 231 units/L (30-135) H 03/08/17 12:32 Troponin T < 0.010 ng/mL (0.00-0.029) 03/08/17 12:32 NT-Pro-B Natriuret Pep 732.7 pg/mL (0-450) H 03/08/17 12:32 Total Protein 9.0 g/dL (6.3-8.2) H 03/08/17 12:32 Albumin 3.7 g/dL (3.9-5) L 03/08/17 12:32 Albumin/Globulin Ratio 0.7 % 03/08/17 12:32 TSH 3.530 mlU/mL (0.270-4.200) 03/08/17 17:01 Free T4 1.17 ng/dL (0.76-1.46) 03/08/17 17:01 - Imaging and Cardiology Chest x-ray: image reviewed (cardiomegaly, pulmonary vascular congestion) CT scan - chest: report reviewed (CTA chest with no PE, but bilateral pleural effusions)
[2017-03-09] MEDS: COREG PO SCH (21:40)
[2017-03-10 06:09] LABS: Eosinophils % (Auto) 0.7 % (0.0-4.3); Hematocrit 37.5 % (30.3-42.9); Hemoglobin 12.6 gm/dl (10.1-14.3); Mean Corpuscular HGB Conc 34 % (30-34); Mean Corpuscular Hemoglobin 30 pg (28-32); Mean Corpuscular Volume 89 fl (79-97); Platelet Count 168 K/mm3 (140-440); Red Cell Distribution Width 14.7 % (13.2-15.2); White Blood Count 8.8 K/mm3 (4.5-11.0)
[2017-03-10 06:31] LABS: BUN/Creatinine Ratio 23.33; Calcium 8.5 mg/dL (8.4-10.2); Chloride 97.1 mmol/L (98-107)
[2017-03-10] MEDS: LASIX IV SCH ×2 (07:00→17:17)
[2017-03-10 08:13] LABS: Potassium 4.8 mmol/L (3.6-5.0)
[2017-03-10] MEDS: COREG PO SCH ×2 (09:23→22:51)
[2017-03-10] MEDS: NOVOLOG SUB-Q SCH ×4 (09:24→22:52)
[2017-03-10] MEDS: BABY ASPIRIN PO SCH (09:24)
[2017-03-10] MEDS: PEPCID PO SCH ×2 (09:24→22:50)
--- NOTE | 2017-03-10 13:22 | Progress Note ---
Assessment and Plan Imp: 1. CAP +/- pulm edema 2. Sepsis per criteria 3. Acute respiratory failure, hypoxia 4. Morbid obesity w/ probable ROBBIN/OHS -> chronic CO2 retention 5. A/C respiratory failure, hypercapnea Rec: 1. Cont. Rocephin/Azithro 2. Cont. Lasix 3. Need Echo report MAAY 4. Wean O2 as tolerated to keep sats 88-94% 5. Repeat CXR in AM 6. Outpatient PSG and PFTs Plan of care reviewed w/ patient, she understands/agrees Subjective Date of service: 03/10/17 Principal diagnosis: Pneumonia Interval history: No events. SOB better. No chest pain, cough, sputum. On O2 NC. No new complaints. Active Medications Acetaminophen (Tylenol) 650 mg PO Q4H PRN PRN Reason: Pain MILD(1-3)/Fever >100.5/WILDE Last Admin: 03/09/17 04:52 Dose: 650 mg Albuterol (Proventil) 2.5 mg IH Q4H PRN PRN Reason: Shortness Of Breath Aspirin (Baby Aspirin) 81 mg PO QDAY [facility] Last Admin: 03/10/17 09:24 Dose: 81 mg Bisacodyl (Dulcolax) 10 mg [place] QDAY PRN PRN Reason: Constipation unrelieved by MOM Carvedilol (Coreg) 6.25 mg PO BID [facility] Last Admin: 03/10/17 09:23 Dose: 6.25 mg Famotidine (Pepcid) 20 mg PO BID [facility] Last Admin: 03/10/17 09:24 Dose: 20 mg Furosemide (Lasix) 40 mg IV 0600,1800 [facility] Last Admin: 03/10/17 07:00 Dose: 40 mg Azithromycin 500 mg/ Sodium (Chloride) 250 mls @ 250 mls/hr IV Q24H STEVEN PRN Reason: Protocol Last Admin: 03/09/17 16:18 Dose: 250 mls/hr Ceftriaxone Sodium (Rocephin/Ns 1 Gm/50 Ml) 1 gm in 50 mls @ 100 mls/hr IV Q24H STEVEN PRN Reason: Protocol Last Admin: 03/09/17 17:08 Dose: 100 mls/hr Insulin Aspart (Novolog) 0 units SUB-Q ACHS STEVEN PRN Reason: Protocol Last Admin: 03/10/17 13:12 Dose: Not Given Insulin Human Isoph/Insulin Regular (Novolin 70/30) 10 unit SUB-Q BIDDIAB STEVEN Last Admin: 03/10/17 09:24 Dose: 10 unit Magnesium Hydroxide (Milk Of Magnesia) 30 ml PO Q4H PRN PRN Reason: Constipation Ondansetron HCl (Zofran) 4 mg IV Q8H PRN PRN Reason: N/V unrelieved by Reglan Objective Vital Signs - 12hr 03/10/17 03/10/17 03/10/17 03:29 03:35 08:04 Temperature 98.7 F Pulse Rate 81 Respiratory 18 25 H Rate Blood Pressure 129/72 O2 Sat by Pulse 100 96 Oximetry 03/10/17 03/10/17 03/10/17 08:09 12:31 13:18 Temperature 98.6 F 98.6 F Pulse Rate 90 86 Respiratory 16 16 Rate Blood Pressure 128/85 121/70 O2 Sat by Pulse 92 95 97 Oximetry Constitutional: no acute distress, alert, other (morbidly obese) Eyes: non-icteric ENT: oropharynx moist Neck: supple (and large in circumference) Effort: normal Ascultation: Bilateral: diminished breath sounds (no wheezes/crackles) Cardiovascular: regular rate and rhythm (no mrg) Gastrointestinal: normoactive bowel sounds, soft, non-tender, non-distended Integumentary: normal Extremities: no cyanosis, no edema, pink and warm Neurologic: normal mental status, non-focal exam, pupils equal and round, CN II- XII normal Psychiatric: mood appropriate, affect normal CBC and BMP: 03/10/17 05:19 03/10/17 05:19 ABG, PT/INR, D-dimer: ABG POC ABG pH 7.339 (7.35-7.45) L 03/09/17 09:41 POC ABG pCO2 67.9 (35-45) H 03/09/17 09:41 POC ABG pO2 82 (80-105) 03/09/17 09:41 POC ABG HCO3 36.6 03/09/17 09:41 POC ABG Total CO2 39 03/09/17 09:41 POC ABG O2 Sat 95 03/09/17 09:41 PT/INR, D-dimer PT 15.1 Sec. (12.2-14.9) H 03/08/17 13:47 INR 1.13 (0.87-1.13) 03/08/17 13:47 D-Dimer 621.89 ng/mlDDU (0-234) H 03/08/17 13:47 Abnormal lab findings: Abnormal Labs 03/08/17 03/08/17 03/08/17 17:53 18:54 21:21 [place] % (Auto) [place] # Heparin Anti-Xa Level 0.81 H POC ABG pH POC ABG pCO2 POC ABG pO2 Chloride BUN Glucose POC Glucose 158 H 114 H 03/09/17 03/09/17 03/09/17 06:05 06:50 09:41 [place] % (Auto) [place] # Heparin Anti-Xa Level POC ABG pH 7.314 L 7.339 L POC ABG pCO2 72.1 H 67.9 H POC ABG pO2 75 L Chloride BUN Glucose POC Glucose 144 H 03/09/17 03/09/17 03/09/17 11:43 16:13 21:24 [place] % (Auto) [place] # Heparin Anti-Xa Level POC ABG pH POC ABG pCO2 POC ABG pO2 Chloride BUN Glucose POC Glucose 181 H 169 H 132 H 03/10/17 03/10/17 03/10/17 05:19 05:19 05:56 [place] % (Auto) 11.7 H [place] # 1.0 H Heparin Anti-Xa Level POC ABG pH POC ABG pCO2 POC ABG pO2 Chloride 97.1 L BUN 28 H Glucose 115 H POC Glucose 120 H 03/10/17 12:02 [place] % (Auto) [place] # Heparin Anti-Xa Level POC ABG pH POC ABG pCO2 POC ABG pO2 Chloride BUN Glucose POC Glucose 148 H Chest x-ray: report reviewed, image reviewed CT scan - chest: report reviewed, image reviewed (bibasilar consolidation w/ small effusions)
--- NOTE | 2017-03-10 14:17 | Progress Note ---
Assessment and Plan Acute respiratory failure Pulmonary edema Diabetes Hypertension Echocardiogram results are pending. We will recommend a right and left cardiac cath for further cardiac evaluation when pulmonary status is stable. Subjective Date of service: 03/10/17 Principal diagnosis: Pneumonia Interval history: Patient reports her breathing is better. Objective Vital Signs Temp Pulse Pulse Pulse Pulse Resp BP 03/10/17 13:18 03/10/17 12:31 98.6 F 86 16 121/70 03/10/17 08:09 98.6 F 90 16 128/85 03/10/17 08:04 03/10/17 03:35 81 25 H 03/10/17 03:29 98.7 F 18 129/72 03/10/17 00:01 99.9 F H 85 18 153/92 03/09/17 23:26 86 29 H 03/09/17 22:00 80 80 80 18 03/09/17 21:40 80 110/70 03/09/17 19:28 100.7 F H 84 18 111/70 03/09/17 19:24 03/09/17 19:22 87 21 03/09/17 16:15 99.1 F 86 18 03/09/17 16:14 99.1 F 88 18 127/81 03/09/17 15:12 88 24 Pulse Ox 03/10/17 13:18 97 03/10/17 12:31 95 03/10/17 08:09 92 03/10/17 08:04 96 03/10/17 03:35 100 03/10/17 03:29 03/10/17 00:01 89 03/09/17 23:26 92 03/09/17 22:00 92 03/09/17 21:40 03/09/17 19:28 95 03/09/17 19:24 98 03/09/17 19:22 98 03/09/17 16:15 100 03/09/17 16:14 97 03/09/17 15:12 96 - Physical Examination General: No Apparent Distress HEENT: Positive: PERRL Cardiac: Positive: Reg Rate and Rhythm Neuro: Positive: Grossly Intact - Labs and Meds CBC 03/10/17 Range/Units 05:19 WBC 8.8 (4.5-11.0) K/mm3 RBC 4.20 (3.65-5.03) M/mm3 Hgb 12.6 (10.1-14.3) gm/dl Hct 37.5 D (30.3-42.9) % Plt Count 168 (140-440) K/mm3 Lymph # 1.7 (1.2-5.4) K/mm3 [place] # 1.0 H (0.0-0.8) K/mm3 Eos # 0.1 (0.0-0.4) K/mm3 Baso # 0.1 (0.0-0.1) K/mm3 Comprehensive Metabolic Panel 03/10/17 Range/Units 05:19 Sodium 140 (137-145) mmol/L Potassium 4.8 (3.6-5.0) mmol/L Chloride 97.1 L (98-107) mmol/L Carbon Dioxide 30 (22-30) mmol/L BUN 28 H (7-17) mg/dL Creatinine 1.2 (0.7-1.2) mg/dL Glucose 115 H (65-100) mg/dL Calcium 8.5 (8.4-10.2) mg/dL
[2017-03-10] MEDS ORDERED: NACL 0.9% 500 ML 500 ML IV SCH (15:00)
[2017-03-10] MEDS: ROCEPHIN/NS 1 GM/50 ML 1 GM/50 ML BAG IV SCH (17:12)
[2017-03-10] MEDS: ZITHROMAX 500 MG in NACL 0.9% 250ML 250 ML IV SCH (17:12)
--- NOTE | 2017-03-10 19:08 | Progress Note ---
Assessment and Plan Assessment and plan: 46 years old morbidly obese -[place] female with hypertension and diabetes admitted for severe shortness of breath 1. Acute respiratory failure hypoxemic hypercapnic Likely secondary to acute heart failure with fluid overload and bilateral pneumonia Blood cultures obtained and started on IV antibiotics Continue diuresis with IV Lasix BiPAP, supplemental oxygen Pulmonary following 2. Acute systolic heart failure On beta hemant and Lasix, not an SAMANTHA inhibitor due to hyperkalemia Monitoring I's and O's Echo obtained, results pending Cardiology plans cardiac cath 3. Bilateral Pneumonia/Sepsis Continue antibiotics 4. Diabetes On 70/30 and SSI based on Accu-Cheks to assess insulin requirements 5. Morbid obesity/ROBBIN/OHS Will need outpatient pulmonary follow-up for sleep study, PFTs On BiPAP QHS and prn 6. DVT/GI prophylaxis History Interval history: On BiPAP overnight, this morning on oxygen per nasal cannula; feeling slightly better Hospitalist Physical - Constitutional Vitals: Temp Pulse Resp BP Pulse Ox 98.9 F 86 18 118/82 94 03/10/17 15:01 03/10/17 15:01 03/10/17 15:01 03/10/17 15:01 03/10/17 15:01 General appearance: Present: no acute distress, obese (morbidly) - EENT Eyes: Present: PERRL, EOM intact - Neck Neck: Present: supple. Absent: enlarged thyroid, masses or JVD - Respiratory Respiratory effort: labored, other (on supplemental oxygen, BiPAP intermittently ) Respiratory: bilateral: diminished, rales - Cardiovascular Rhythm: other Heart Sounds: Present: S1 & S2. Absent: systolic murmur - Extremities Extremities: no ischemia - Abdominal General gastrointestinal: soft, non-tender, non-distended, normal bowel sounds - Integumentary Integumentary: Present: warm, dry. Absent: jaundice, rash - Psychiatric Psychiatric: cooperative - Neurologic Neurologic: CNII-XII intact, no focal deficits Results - Labs CBC & Chem 7: 03/10/17 05:19 03/10/17 05:19 Labs: Laboratory Last Values WBC 8.8 K/mm3 (4.5-11.0) 03/10/17 05:19 RBC 4.20 M/mm3 (3.65-5.03) 03/10/17 05:19 Hgb 12.6 gm/dl (10.1-14.3) 03/10/17 05:19 Hct 37.5 % (30.3-42.9) D 03/10/17 05:19 MCV 89 fl (79-97) 03/10/17 05:19 MCH 30 pg (28-32) 03/10/17 05:19 MCHC 34 % (30-34) 03/10/17 05:19 RDW 14.7 % (13.2-15.2) 03/10/17 05:19 Plt Count 168 K/mm3 (140-440) 03/10/17 05:19 Lymph % (Auto) 19.4 % (13.4-35.0) 03/10/17 05:19 [place] % (Auto) 11.7 % (0.0-7.3) H 03/10/17 05:19 Eos % (Auto) 0.7 % (0.0-4.3) 03/10/17 05:19 Baso % (Auto) 1.0 % (0.0-1.8) 03/10/17 05:19 Lymph # 1.7 K/mm3 (1.2-5.4) 03/10/17 05:19 [place] # 1.0 K/mm3 (0.0-0.8) H 03/10/17 05:19 Eos # 0.1 K/mm3 (0.0-0.4) 03/10/17 05:19 Baso # 0.1 K/mm3 (0.0-0.1) 03/10/17 05:19 Seg Neutrophils % 67.2 % (40.0-70.0) 03/10/17 05:19 Seg Neutrophils # 5.9 K/mm3 (1.8-7.7) 03/10/17 05:19 PT 15.1 Sec. (12.2-14.9) H 03/08/17 13:47 INR 1.13 (0.87-1.13) 03/08/17 13:47 APTT 24.1 Sec. (24.2-36.6) L 03/08/17 13:47 D-Dimer 621.89 ng/mlDDU (0-234) H 03/08/17 13:47 Heparin Anti-Xa Level 0.58 U.I./ml (0.3-0.7) 03/08/17 23:32 POC ABG pH 7.339 (7.35-7.45) L 03/09/17 09:41 POC ABG pCO2 67.9 (35-45) H 03/09/17 09:41 POC ABG pO2 82 (80-105) 03/09/17 09:41 POC ABG HCO3 36.6 03/09/17 09:41 POC ABG Total CO2 39 03/09/17 09:41 POC ABG O2 Sat 95 03/09/17 09:41 POC ABG Base Excess 11 03/09/17 09:41 FiO2 100 % 03/09/17 09:41 Sodium 140 mmol/L (137-145) 03/10/17 05:19 Potassium 4.8 mmol/L (3.6-5.0) 03/10/17 05:19 Chloride 97.1 mmol/L (98-107) L 03/10/17 05:19 Carbon Dioxide 30 mmol/L (22-30) 03/10/17 05:19 Anion Gap 18 mmol/L 03/10/17 05:19 BUN 28 mg/dL (7-17) H 03/10/17 05:19 Creatinine 1.2 mg/dL (0.7-1.2) 03/10/17 05:19 Estimated GFR 59 ml/min 03/10/17 05:19 BUN/Creatinine Ratio 23.33 % 03/10/17 05:19 Glucose 115 mg/dL (65-100) H 03/10/17 05:19 POC Glucose 141 (70-105) H 03/10/17 17:00 Lactic Acid 1.40 mmol/L (0.7-2.0) 03/08/17 13:47 Calcium 8.5 mg/dL (8.4-10.2) 03/10/17 05:19 Magnesium 2.30 mg/dL (1.7-2.3) 03/08/17 12:32 Total Bilirubin 1.40 mg/dL (0.1-1.2) H 03/08/17 12:32 AST 40 units/L (5-40) 03/08/17 12:32 ALT 39 units/L (7-56) 03/08/17 12:32 Alkaline Phosphatase 102 units/L (35-129) 03/08/17 12:32 Total Creatine Kinase 231 units/L (30-135) H 03/08/17 12:32 Troponin T < 0.010 ng/mL (0.00-0.029) 03/08/17 12:32 NT-Pro-B Natriuret Pep 732.7 pg/mL (0-450) H 03/08/17 12:32 Total Protein 9.0 g/dL (6.3-8.2) H 03/08/17 12:32 Albumin 3.7 g/dL (3.9-5) L 03/08/17 12:32 Albumin/Globulin Ratio 0.7 % 03/08/17 12:32 TSH 3.530 mlU/mL (0.270-4.200) 03/08/17 17:01 Free T4 1.17 ng/dL (0.76-1.46) 03/08/17 17:01
[2017-03-11 05:30] LABS: INR 1.02 (0.87-1.13)
[2017-03-11 05:38] LABS: Anion Gap 14 mmol/L; BUN/Creatinine Ratio 27; Blood Urea Nitrogen 24 mg/dL (7-17); Calcium 8.2 mg/dL (8.4-10.2); Carbon Dioxide 32 mmol/L (22-30); Chloride 96.4 mmol/L (98-107); Glucose 128 mg/dL (65-100); Potassium 4.4 mmol/L (3.6-5.0); Sodium 138 mmol/L (137-145)
[2017-03-11] MEDS ORDERED: NACL 0.9% 1000 ML 1,000 ML IV ONE (06:37)
[2017-03-11] MEDS ORDERED: ASPIRIN PO ONE (06:37)
[2017-03-11] MEDS: LASIX IV SCH ×2 (06:53→18:02)
[2017-03-11] MEDS: NOVOLOG SUB-Q SCH ×4 (08:15→22:00)
--- NOTE | 2017-03-11 09:22 | Progress Note ---
Assessment and Plan Acute respiratory failure Pulmonary edema Diabetes Hypertension Echocardiogram results are pending. Awaits a right and left cardiac cath for further cardiac evaluation when pulmonary status stabilizes. Subjective Date of service: 03/11/17 Principal diagnosis: Pneumonia Interval history: Patient reports she is still short of breath and is unable to lie flat. Planned cardiac cath is canceled. Objective Vital Signs Temp Pulse Pulse Resp BP BP Pulse Ox 03/11/17 09:15 96 03/11/17 07:44 99.5 F 81 18 145/87 98 03/11/17 04:57 98.9 F 24 164/85 03/11/17 02:06 87 22 98 03/10/17 22:51 97 H 156/84 03/10/17 22:44 99.6 F 26 H 156/84 03/10/17 22:00 88 24 93 03/10/17 16:00 94 03/10/17 15:01 98.9 F 86 18 118/82 94 03/10/17 13:18 97 03/10/17 12:31 98.6 F 86 16 121/70 95 - Physical Examination General: No Apparent Distress HEENT: Positive: PERRL Cardiac: Positive: Reg Rate and Rhythm Neuro: Positive: Grossly Intact - Labs and Meds Coagulation 03/11/17 Range/Units 03:44 PT 13.9 (12.2-14.9) Sec. INR 1.02 (0.87-1.13) Comprehensive Metabolic Panel 03/11/17 Range/Units 03:44 Sodium 138 (137-145) mmol/L Potassium 4.4 (3.6-5.0) mmol/L Chloride 96.4 L (98-107) mmol/L Carbon Dioxide 32 H (22-30) mmol/L BUN 24 H (7-17) mg/dL Creatinine 0.9 (0.7-1.2) mg/dL Glucose 128 H (65-100) mg/dL Calcium 8.2 L (8.4-10.2) mg/dL
--- NOTE | 2017-03-11 11:00 | XRay Report ---
PA and lateral chest: Pneumonia followup. Comparison is made to the study of March 08. There is increased patchy density at the left base which appears slightly improved from prior study. The atelectatic changes previously noted at the right base also appear to have improved. The mid and upper portions of the lungs are currently clear. The heart is normal in size and there is no vasculature seen. Impressions: Improving bibasilar opacities.
[2017-03-11] MEDS: BABY ASPIRIN PO SCH (12:27)
[2017-03-11] MEDS: COREG PO SCH ×2 (12:28→21:54)
[2017-03-11] MEDS: PEPCID PO SCH ×2 (12:28→21:53)
--- NOTE | 2017-03-11 15:36 | Progress Note ---
Assessment and Plan Acute respiratory failure hypoxemic hypercapnic - Likely secondary to acute heart failure with fluid overload and bilateral pneumonia - Blood cultures obtained and started on IV antibiotics - Continue diuresis with IV Lasix - as needed BiPAP, supplemental oxygen - Pulmonary following Acute diastolic heart failure - On beta hemant and Lasix, not an SAMANTHA inhibitor due to hyperkalemia - Monitoring I's and O's - Echo obtained, results showed 60- 65% EF - Cardiology plans cardiac cath Bilateral Pneumonia/Sepsis - Continue antibiotics - blood cx negative Diabetes - On and SSI based on Accu-Cheks to assess insulin requirements Morbid obesity/ROBBIN/OHS -Will need outpatient pulmonary follow-up for sleep study, PFTs - On BiPAP QHS and prn DVT/GI prophylaxis Brief History: 46 years old morbidly obese -[place] female with hypertension and diabetes admitted for severe shortness of breath. Radiological data: CTA chest 02/3017 - bilateral airspace disease, No PE CXR 03/08/17 - CHF with pulmonary edema CXR 03/11/17 - improved bobasilar opacities 2 d echo - EF 60 -65 % with diastolic dysfunction and calcification of posterior leaflets of mitral valve Active meds: Generic Name Dose Route Start Last Admin Trade Name Freq PRN Reason Stop Dose Admin Acetaminophen 650 mg 03/08/17 13:54 03/09/17 04:52 Tylenol PO 650 mg Q4H PRN Administration Pain MILD(1-3)/Fever >100.5/WILDE Albuterol 2.5 mg 03/08/17 13:54 Proventil IH Q4H PRN Shortness Of Breath Aspirin 81 mg 03/09/17 16:00 03/11/17 12:27 Baby Aspirin PO Not Given QDAY STEVEN Azithromycin 500 mg 03/12/17 10:00 Zithromax PO QDAY STEVEN Bisacodyl 10 mg 03/08/17 13:54 Dulcolax AR QDAY PRN Constipation unrelieved by MOM Carvedilol 6.25 mg 03/09/17 22:00 03/11/17 12:28 Coreg PO 6.25 mg BID STEVEN Administration Famotidine 20 mg 03/08/17 22:00 03/11/17 12:28 Pepcid PO 20 mg BID STEVEN Administration Furosemide 40 mg 03/08/17 18:00 03/11/17 06:53 Lasix IV Not Given 0600,1800 [facility] Azithromycin 500 mg/ Sodium 250 mls @ 250 mls/hr 03/08/17 17:00 03/10/17 17: 12 Chloride IV 03/11/17 23:59 250 mls/hr Q24H [facility] Administration Protocol Ceftriaxone Sodium 1 gm in 50 mls @ 100 mls/hr 03/08/17 18:00 03/10/17 17:12 Rocephin/Ns 1 Gm/50 Ml IV 100 mls/hr Q24H [facility] Administration Protocol Sodium Chloride 1,000 mls @ 50 mls/hr 03/11/17 06:37 03/11/17 06:49 Nacl 0.9% 1000 Ml IV 03/12/17 02:36 50 mls/hr ONCE ONE Administration Insulin Aspart 0 units 03/09/17 16:30 03/11/17 12:28 Novolog SUB-Q Not Given ACHS [facility] Protocol Insulin Human Isoph/Insulin Regular 10 unit 03/09/17 17:00 03/11/17 08:15 Novolin 70/30 SUB-Q Not Given BIDDIAB STEVEN Magnesium Hydroxide 30 ml 03/08/17 13:54 Milk Of Magnesia PO Q4H PRN Constipation Ondansetron HCl 4 mg 03/08/17 13:54 Zofran IV Q8H PRN N/V unrelieved by Ray Subjective Date of service: 03/11/17 Principal diagnosis: Pneumonia Interval history: Cardiac cath cancelled today for dyspnea. this morning on oxygen per nasal cannula; tolerating diet Objective - Exam Narrative Exam: General appearance: Present: no acute distress, obese (morbidly) - EENT Eyes: Present: PERRL, EOM intact - Neck Neck: Present: supple. Absent: enlarged thyroid, masses or JVD - Respiratory Respiratory effort: labored, other (on supplemental oxygen, BiPAP intermittently ) Respiratory: bilateral: diminished, rales - Cardiovascular Rhythm: other Heart Sounds: Present: S1 & S2. Absent: systolic murmur - Extremities Extremities: no ischemia - Abdominal General gastrointestinal: soft, non-tender, non-distended, normal bowel sounds - Integumentary Integumentary: Present: warm, dry. Absent: jaundice, rash - Psychiatric Psychiatric: cooperative - Neurologic Neurologic: CNII-XII intact, no focal deficits - Constitutional Vitals: Vital Signs - 12hr 03/11/17 03/11/17 03/11/17 04:57 07:44 09:15 Temperature 98.9 F 99.5 F Pulse Rate 81 Respiratory 24 18 Rate Blood Pressure 164/85 Blood Pressure 145/87 [Left] O2 Sat by Pulse 98 96 Oximetry - Labs CBC & Chem 7: 03/10/17 05:19 03/11/17 03:44 Labs: Abnormal lab results 03/10/17 03/10/17 03/11/17 Range/Units 17:00 21:09 03:44 Chloride 96.4 L (98-107) mmol/L Carbon Dioxide 32 H (22-30) mmol/L BUN 24 H (7-17) mg/dL Glucose 128 H (65-100) mg/dL POC Glucose 141 H 143 H (70-105) Calcium 8.2 L (8.4-10.2) mg/dL 03/11/17 Range/Units 06:19 Chloride (98-107) mmol/L Carbon Dioxide (22-30) mmol/L BUN (7-17) mg/dL Glucose (65-100) mg/dL POC Glucose 120 H (70-105) Calcium (8.4-10.2) mg/dL
--- NOTE | 2017-03-11 15:43 | Progress Note ---
Assessment and Plan Imp: 1. CAP +/- pulm edema 2. Sepsis per criteria, better 3. Acute respiratory failure, hypoxia 4. Morbid obesity w/ probable ROBBIN/OHS -> chronic CO2 retention 5. A/C respiratory failure, hypercapnea Rec: 1. Cont. Rocephin/Azithro 2. Cont. Lasix 3. ? Cath per cardiology 4. Wean O2 as tolerated to keep sats 88-94% 5. CXR improving 6. Chronic CO2 retention -> needs weight loss, outpatient PSG and PFTs (d/w patient and family) Plan of care reviewed w/ patient, she understands/agrees Subjective Date of service: 03/11/17 Principal diagnosis: Pneumonia Interval history: No events. SOB better. No chest pain, cough, sputum. On O2 NC. No new complaints. Active Medications Acetaminophen (Tylenol) 650 mg PO Q4H PRN PRN Reason: Pain MILD(1-3)/Fever >100.5/WILDE Last Admin: 03/09/17 04:52 Dose: 650 mg Albuterol (Proventil) 2.5 mg IH Q4H PRN PRN Reason: Shortness Of Breath Aspirin (Baby Aspirin) 81 mg PO QDAY [facility] Last Admin: 03/11/17 12:27 Dose: Not Given Azithromycin (Zithromax) 500 mg PO QDAY [facility] Bisacodyl (Dulcolax) 10 mg [place] QDAY PRN PRN Reason: Constipation unrelieved by MOM Carvedilol (Coreg) 6.25 mg PO BID [facility] Last Admin: 03/11/17 12:28 Dose: 6.25 mg Famotidine (Pepcid) 20 mg PO BID [facility] Last Admin: 03/11/17 12:28 Dose: 20 mg Furosemide (Lasix) 40 mg IV 0600,1800 [facility] Last Admin: 03/11/17 06:53 Dose: Not Given Azithromycin 500 mg/ Sodium (Chloride) 250 mls @ 250 mls/hr IV Q24H [facility] PRN Reason: Protocol Stop: 03/11/17 23:59 Last Admin: 03/10/17 17:12 Dose: 250 mls/hr Ceftriaxone Sodium (Rocephin/Ns 1 Gm/50 Ml) 1 gm in 50 mls @ 100 mls/hr IV Q24H [facility] PRN Reason: Protocol Last Admin: 03/10/17 17:12 Dose: 100 mls/hr Sodium Chloride (Nacl 0.9% 1000 Ml) 1,000 mls @ 50 mls/hr IV ONCE ONE Stop: 03/12/17 02:36 Last Admin: 03/11/17 06:49 Dose: 50 mls/hr Insulin Aspart (Novolog) 0 units SUB-Q ACHS STEVEN PRN Reason: Protocol Last Admin: 03/11/17 12:28 Dose: Not Given Insulin Human Isoph/Insulin Regular (Novolin 70/30) 10 unit SUB-Q BIDDIAB [facility] Last Admin: 03/11/17 08:15 Dose: Not Given Magnesium Hydroxide (Milk Of Magnesia) 30 ml PO Q4H PRN PRN Reason: Constipation Ondansetron HCl (Zofran) 4 mg IV Q8H PRN PRN Reason: N/V unrelieved by Ray Objective Vital Signs - 12hr 03/11/17 03/11/17 03/11/17 04:57 07:44 09:15 Temperature 98.9 F 99.5 F Pulse Rate 81 Respiratory 24 18 Rate Blood Pressure 164/85 Blood Pressure 145/87 [Left] O2 Sat by Pulse 98 96 Oximetry Constitutional: no acute distress, alert, other (morbidly obese) Eyes: non-icteric ENT: oropharynx moist Neck: supple (and large in circumference) Effort: normal Ascultation: Bilateral: rales (very faint at the bases) Cardiovascular: regular rate and rhythm (no mrg) Gastrointestinal: normoactive bowel sounds, soft, non-tender, non-distended Integumentary: normal Extremities: no cyanosis, no edema, pink and warm Neurologic: normal mental status, non-focal exam, pupils equal and round, CN II- XII normal Psychiatric: mood appropriate, affect normal CBC and BMP: 03/10/17 05:19 03/11/17 03:44 ABG, PT/INR, D-dimer: ABG POC ABG pH 7.339 (7.35-7.45) L 03/09/17 09:41 POC ABG pCO2 67.9 (35-45) H 03/09/17 09:41 POC ABG pO2 82 (80-105) 03/09/17 09:41 POC ABG HCO3 36.6 03/09/17 09:41 POC ABG Total CO2 39 03/09/17 09:41 POC ABG O2 Sat 95 03/09/17 09:41 PT/INR, D-dimer PT 13.9 Sec. (12.2-14.9) 03/11/17 03:44 INR 1.02 (0.87-1.13) 03/11/17 03:44 D-Dimer 621.89 ng/mlDDU (0-234) H 03/08/17 13:47 Abnormal lab findings: Abnormal Labs 03/08/17 03/08/17 03/08/17 17:53 18:54 21:21 [place] % (Auto) [place] # Heparin Anti-Xa Level 0.81 H POC ABG pH POC ABG pCO2 POC ABG pO2 Chloride Carbon Dioxide BUN Glucose POC Glucose 158 H 114 H Calcium 03/09/17 03/09/17 03/09/17 06:05 06:50 09:41 [place] % (Auto) [place] # Heparin Anti-Xa Level POC ABG pH 7.314 L 7.339 L POC ABG pCO2 72.1 H 67.9 H POC ABG pO2 75 L Chloride Carbon Dioxide BUN Glucose POC Glucose 144 H Calcium 03/09/17 03/09/17 03/09/17 11:43 16:13 21:24 [place] % (Auto) [place] # Heparin Anti-Xa Level POC ABG pH POC ABG pCO2 POC ABG pO2 Chloride Carbon Dioxide BUN Glucose POC Glucose 181 H 169 H 132 H Calcium 03/10/17 03/10/17 03/10/17 05:19 05:19 05:56 [place] % (Auto) 11.7 H [place] # 1.0 H Heparin Anti-Xa Level POC ABG pH POC ABG pCO2 POC ABG pO2 Chloride 97.1 L Carbon Dioxide BUN 28 H Glucose 115 H POC Glucose 120 H Calcium 03/10/17 03/10/17 03/10/17 12:02 17:00 21:09 [place] % (Auto) [place] # Heparin Anti-Xa Level POC ABG pH POC ABG pCO2 POC ABG pO2 Chloride Carbon Dioxide BUN Glucose POC Glucose 148 H 141 H 143 H Calcium 03/11/17 03/11/17 03:44 06:19 [place] % (Auto) [place] # Heparin Anti-Xa Level POC ABG pH POC ABG pCO2 POC ABG pO2 Chloride 96.4 L Carbon Dioxide 32 H BUN 24 H Glucose 128 H POC Glucose 120 H Calcium 8.2 L Chest x-ray: report reviewed, image reviewed (improved bibasilar densities)
[2017-03-11] MEDS: ZITHROMAX 500 MG in NACL 0.9% 250ML 250 ML IV SCH (18:03)
[2017-03-11] MEDS: ROCEPHIN/NS 1 GM/50 ML 1 GM/50 ML BAG IV SCH (18:03)
[2017-03-11] MEDS: LOVENOX SUB-Q SCH (21:52)
[2017-03-12 05:42] LABS: Hematocrit 36.9 % (30.3-42.9); Hemoglobin 12.4 gm/dl (10.1-14.3)
[2017-03-12] MEDS ORDERED: ASPIRIN PO ONE (06:00)
[2017-03-12] MEDS: LASIX IV SCH ×2 (06:41→17:32)
[2017-03-12] MEDS: NOVOLOG SUB-Q SCH ×4 (08:07→22:05)
[2017-03-12] MEDS ORDERED: HEPARIN/NS 5000 UNIT/500ML(CATH LAB) 1,000 ML IR ONE (08:35)
[2017-03-12] MEDS ORDERED: ATIVAN ONE (08:49)
[2017-03-12] MEDS ORDERED: NACL 0.9% 500 ML 500 ML ONE (09:17)
[2017-03-12] MEDS: XYLOCAINE 2% INFILTRATI ONE ×3 (09:35→10:06)
[2017-03-12] MEDS: NITROGLYCERIN SYRINGE 3 ML ONE ×3 (09:35→10:08)
[2017-03-12] MEDS: SUBLIMAZE ONE ×2 (09:36→09:43)
[2017-03-12] MEDS: CALAN ONE ×3 (09:36→10:08)
[2017-03-12] MEDS: VERSED ONE ×2 (09:36→09:46)
[2017-03-12] MEDS: HEPARIN 10,000 UNITS/10 ML ONE ×3 (09:36→10:08)
--- NOTE | 2017-03-12 10:42 | Progress Note ---
Assessment and Plan Impression Shortness of breath including pulmonary hypertension, acute diastolic heart failure, sleep apnea and morbid obesity Coronary angiogram revealing mild CAD presented LV systolic function Right heart cath revealed a elevated right heart pressures including moderate to severe pulmonary hypertension and elevated wedge pressure Morbid obesity Hypertension Diabetes mellitus Moderate mitral and left calcification stage A with no stenosis Plan Continue aggressive IV diuresis Continue beta blockers At a centimeters in view of the diabetes and hypertension Monitor renal function Outpatient evaluation for sleep apnea Subjective Date of service: 03/12/17 Principal diagnosis: Pneumonia Interval history: No events overnight Heart cardiac cath and tolerated procedure well Objective Vital Signs Temp Pulse Pulse Resp BP Pulse Ox 03/12/17 07:23 98.3 F 18 155/88 03/12/17 04:59 98.7 F 80 18 145/88 98 03/11/17 23:42 97.0 F L 76 18 142/83 99 03/11/17 22:25 85 24 95 03/11/17 22:00 97 H 24 94 03/11/17 21:54 87 182/97 03/11/17 20:28 98.9 F 92 H 20 140/84 96 03/11/17 20:17 95 03/11/17 16:49 98.9 F 84 18 141/69 96 - Physical Examination Narrative exam: GEN: NAD severely obese HEENT: Carotids 2+ NECK: SUPPLE, CVS: RRR, NORMAL S1S2 LUNGS/CHEST: CTA ABD: SOFT, MSK: FROM X 4 EXTREMITIES EXT Edema 2+ NEURO: CN 2-12 GROSSLY INTACT, NO FOCAL DEFICITS PSY: CALM General: No Apparent Distress HEENT: Positive: PERRL Neck: Positive: neck supple Neuro: Positive: Grossly Intact Abdomen: Positive: Unremarkable Extremities: Absent: normal - Labs and Meds CBC 03/12/17 Range/Units 04:53 Hgb 12.4 (10.1-14.3) gm/dl Hct 36.9 (30.3-42.9) % Plt Count 169 (140-440) K/mm3
--- NOTE | 2017-03-12 14:08 | Progress Note ---
Assessment and Plan Imp: 1. CAP +/- pulm edema 2. Sepsis per criteria, better 3. Acute respiratory failure, hypoxia 4. Morbid obesity w/ probable ROBBIN/OHS -> chronic CO2 retention 5. A/C respiratory failure, hypercapnea 6. Pulm HTN with elevated wedge per prelim. cath report Rec: 1. Cont. Rocephin/Azithro 2. Cont. Lasix in light of RHC findings; f/u final report 3. Wean O2 as tolerated to keep sats 88-94% 4. CXR improving but would continue to f/u to resolution of infiltrates 5. 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 On NRB which she was on during the procedure. She is awake. SOB stable per patient. No new complaints. Active Medications Acetaminophen (Tylenol) 650 mg PO Q4H PRN PRN Reason: Pain MILD(1-3)/Fever >100.5/WILDE Last Admin: 03/09/17 04:52 Dose: 650 mg Albuterol (Proventil) 2.5 mg IH Q4H PRN PRN Reason: Shortness Of Breath Aspirin (Baby Aspirin) 81 mg PO QDAY [facility] Last Admin: 03/11/17 12:27 Dose: Not Given Azithromycin (Zithromax) 500 mg PO QDAY [facility] Bisacodyl (Dulcolax) 10 mg [place] QDAY PRN PRN Reason: Constipation unrelieved by MOM Carvedilol (Coreg) 6.25 mg PO BID [facility] Last Admin: 03/11/17 21:54 Dose: 6.25 mg Enoxaparin Sodium (Lovenox) 40 mg SUB-Q QDAY@2200 [facility] Last Admin: 03/11/17 21:52 Dose: 40 mg Famotidine (Pepcid) 20 mg PO BID [facility] Last Admin: 03/11/17 21:53 Dose: 20 mg Furosemide (Lasix) 40 mg IV 0600,1800 [facility] Last Admin: 03/12/17 06:41 Dose: 40 mg Ceftriaxone Sodium (Rocephin/Ns 1 Gm/50 Ml) 1 gm in 50 mls @ 100 mls/hr IV Q24H [facility] PRN Reason: Protocol Last Admin: 03/11/17 18:03 Dose: 100 mls/hr Insulin Aspart (Novolog) 0 units SUB-Q ACHS STEVEN PRN Reason: Protocol Last Admin: 03/12/17 08:07 Dose: Not Given Insulin Human Isoph/Insulin Regular (Novolin 70/30) 10 unit SUB-Q BIDDIAB [facility] Last Admin: 03/12/17 08:08 Dose: Not Given Magnesium Hydroxide (Milk Of Magnesia) 30 ml PO Q4H PRN PRN Reason: Constipation Ondansetron HCl (Zofran) 4 mg IV Q8H PRN PRN Reason: N/V unrelieved by Reglan Objective Vital Signs - 12hr 03/12/17 03/12/17 03/12/17 04:59 07:23 10:45 Temperature 98.7 F 98.3 F 99 F Pulse Rate 80 Respiratory 18 18 24 Rate Blood Pressure 145/88 155/88 162/93 O2 Sat by Pulse 98 97 Oximetry 03/12/17 03/12/17 03/12/17 11:00 11:15 11:30 Temperature Pulse Rate 78 79 75 Respiratory 24 25 H 28 H Rate Blood Pressure 163/86 154/89 155/90 O2 Sat by Pulse 97 97 97 Oximetry Constitutional: no acute distress, alert, other (morbidly obese) Eyes: non-icteric ENT: oropharynx moist Neck: supple (and large in circumference) Effort: normal Ascultation: Bilateral: clear (anteriorly) Percussion: Bilateral: not dull Cardiovascular: regular rate and rhythm (no mrg) Gastrointestinal: normoactive bowel sounds, soft, non-tender, non-distended Integumentary: normal Extremities: no cyanosis, no edema, pink and warm Neurologic: normal mental status, non-focal exam, pupils equal and round, CN II- XII normal Psychiatric: mood appropriate, affect normal CBC and BMP: 03/12/17 04:53 03/11/17 03:44 ABG, PT/INR, D-dimer: ABG POC ABG pH 7.339 (7.35-7.45) L 03/09/17 09:41 POC ABG pCO2 67.9 (35-45) H 03/09/17 09:41 POC ABG pO2 82 (80-105) 03/09/17 09:41 POC ABG HCO3 36.6 03/09/17 09:41 POC ABG Total CO2 39 03/09/17 09:41 POC ABG O2 Sat 95 03/09/17 09:41 PT/INR, D-dimer PT 13.9 Sec. (12.2-14.9) 03/11/17 03:44 INR 1.02 (0.87-1.13) 03/11/17 03:44 D-Dimer 621.89 ng/mlDDU (0-234) H 03/08/17 13:47 Abnormal lab findings: Abnormal Labs 03/08/17 03/08/17 03/08/17 17:53 18:54 21:21 [place] % (Auto) [place] # Heparin Anti-Xa Level 0.81 H POC ABG pH POC ABG pCO2 POC ABG pO2 Chloride Carbon Dioxide BUN Glucose POC Glucose 158 H 114 H Calcium 03/09/17 03/09/17 03/09/17 06:05 06:50 09:41 [place] % (Auto) [place] # Heparin Anti-Xa Level POC ABG pH 7.314 L 7.339 L POC ABG pCO2 72.1 H 67.9 H POC ABG pO2 75 L Chloride Carbon Dioxide BUN Glucose POC Glucose 144 H Calcium 03/09/17 03/09/17 03/09/17 11:43 16:13 21:24 [place] % (Auto) [place] # Heparin Anti-Xa Level POC ABG pH POC ABG pCO2 POC ABG pO2 Chloride Carbon Dioxide BUN Glucose POC Glucose 181 H 169 H 132 H Calcium 03/10/17 03/10/17 03/10/17 05:19 05:19 05:56 [place]lin % (Auto) 11.7 H [place]lin # 1.0 H Heparin Anti-Xa Level POC ABG pH POC ABG pCO2 POC ABG pO2 Chloride 97.1 L Carbon Dioxide BUN 28 H Glucose 115 H POC Glucose 120 H Calcium 03/10/17 03/10/17 03/10/17 12:02 17:00 21:09 [place] % (Auto) [place]lin # Heparin Anti-Xa Level POC ABG pH POC ABG pCO2 POC ABG pO2 Chloride Carbon Dioxide BUN Glucose POC Glucose 148 H 141 H 143 H Calcium 03/11/17 03/11/17 03/11/17 03:44 06:19 16:39 [place] % (Auto) [place]lin # Heparin Anti-Xa Level POC ABG pH POC ABG pCO2 POC ABG pO2 Chloride 96.4 L Carbon Dioxide 32 H BUN 24 H Glucose 128 H POC Glucose 120 H 141 H Calcium 8.2 L 03/11/17 03/12/17 21:26 06:36 [place] % (Auto) [place]lin # Heparin Anti-Xa Level POC ABG pH POC ABG pCO2 POC ABG pO2 Chloride Carbon Dioxide BUN Glucose POC Glucose 193 H 125 H Calcium Chest x-ray: report reviewed, image reviewed
--- NOTE | 2017-03-12 15:00 | Cardiac Catherization Report ---
PROCEDURE PERFORMED: 1. Selective left and right coronary angiogram. 2. Left ventriculogram. 3. Right heart catheterization. OIL LEASE BROKER: Rigo Kline MD. INDICATION: New onset congestive heart failure. PROCEDURE IN DETAIL: Right and left heart catheterization. PROCEDURE: 1. The patient was prepped and draped in a sterile fashion after informed consent. 2. The right groin was anesthetized using 1% Lidocaine local infiltration. 3. The right femoral artery was entered using the Seldinger technique, followed by the placement of a #6-Telugu sheath. 4. The right femoral vein was entered using the Seldinger technique and an #8-Telugu sheath was placed. 5. Right heart catheterization was done using a #7.5-Telugu [place]el catheter. The catheter was advanced under fluoroscopic guidance to the right atrium, right ventricle, pulmonary, and pulmonary artery wedge positions. 6. Right heart pressures were measured and recorded. Cardiac output was then measured using the thermodilution method. 7. A #6-Telugu pigtail catheter was advanced into the left ventricle and left ventricular catheterization was performed. 8. Simultaneous left ventricular end-diastolic and pulmonary artery wedge pressures were recorded. 9. The [place]ael catheter was withdrawn into the right ventricle and simultaneous left ventricular and right ventricular end-diastolic pressures were measured. The [place]el catheter was then withdrawn completely after complete measurement of right ventricular pressures. 10. Left ventricular angiography was performed in the right anterior oblique projection. 11. Left and right coronary angiography was performed in multiple projection. 12. The catheters were withdrawn, the sheaths removed, and hemostasis achieved. The patient was returned to the post-catheter holding area in stable condition. There were no complications, equipment malfunction, or technical difficulties. FINDINGS: HEMODYNAMICS: 1. AO 129/88, LV 135/23, and LVEDP was 24. RA was 21, RV was 66/7, PA was 72/17 with a mean of 52 mmHg. Wedge was 25 mmHg. 2. Left ventriculogram done in 30-degree CALDWELL projection shows normal LV systolic function, EF greater than 55%. 3. Moderate mitral annular calcification noted on fluoroscopy. ANGIOGRAM DETAILS: 1. Left main is angiographically normal. 2. LAD has an eccentric mid 40% stenosis. 3. The circumflex angiographically normal. 4. The RCA is medium to large caliber dominant vessel with no significant stenosis. IMPRESSION: 1. Single vessel coronary artery disease involving eccentric 30-40% calcified mid LAD stenosis. 2. Elevated right heart pressures including [id number] pulmonary hypertension with a mean of 52 mmHg. 3. Normal left ventricular systolic function. 4. Moderate ____. PLAN: 1. Aggressive risk factor modification. 2. Routine sheath care. 3. Aggressive treatment of pulmonary hypertension. 4. Medical management for mild coronary artery disease. JOB# [id number] RR/NTS
--- NOTE | 2017-03-12 16:16 | Progress Note ---
Assessment and Plan /Acute respiratory failure hypoxemic hypercapnic - multifactorial including pulmonary hypertension, acute diastolic heart failure , sleep apnea and morbid obesity - Blood cultures obtained and started on IV antibiotics for b/l PNA - Continue diuresis with IV Lasix - as needed BiPAP, supplemental oxygen - Pulmonary following /Acute diastolic heart failure - On beta hemant and Lasix, not an SAMANTHA inhibitor due to hyperkalemia - Monitoring I's and O's - Echo obtained, results showed 60- 65% EF /PHTN - Right heart cath revealed a elevated right heart pressures including moderate to severe pulmonary hypertension and elevated wedge pressure -will follow pulmonary recommendation, cont diuresis for now /Bilateral Pneumonia/Sepsis - Continue antibiotics - blood cx negative /Diabetes - On and SSI based on Accu-Cheks to assess insulin requirements /Morbid obesity/ROBBIN/OHS -Will need outpatient pulmonary follow-up for sleep study, PFTs - On BiPAP QHS and prn /DVT/GI prophylaxis Brief History: 46 years old morbidly obese -[place]ian female with hypertension and diabetes admitted for severe shortness of breath. Radiological data: CTA chest 02/3017 - bilateral airspace disease, No PE CXR 03/08/17 - CHF with pulmonary edema CXR 03/11/17 - improved bobasilar opacities 2 d echo - EF 60 -65 % with diastolic dysfunction and calcification of posterior leaflets of mitral valve Active meds: Generic Name Dose Route Start Last Admin Trade Name Freq PRN Reason Stop Dose Admin Acetaminophen 650 mg 03/08/17 13:54 03/09/17 04:52 Tylenol PO 650 mg Q4H PRN Administration Pain MILD(1-3)/Fever >100.5/WILDE Albuterol 2.5 mg 03/08/17 13:54 Proventil IH Q4H PRN Shortness Of Breath Aspirin 81 mg 03/09/17 16:00 03/13/17 09:30 Baby Aspirin PO 81 mg QDAY STEVEN Administration Azithromycin 500 mg 03/12/17 10:00 03/13/17 09:30 Zithromax PO 500 mg QDAY STEVEN Administration Bisacodyl 10 mg 03/08/17 13:54 Dulcolax RI QDAY PRN Constipation unrelieved by MOM Carvedilol 6.25 mg 03/09/17 22:00 03/13/17 09:30 Coreg PO 6.25 mg BID STEVEN Administration Enoxaparin Sodium 40 mg 03/11/17 22:00 03/12/17 21:20 Lovenox SUB-Q 40 mg QDAY@2200 STEVEN Administration Famotidine 20 mg 03/08/17 22:00 03/13/17 09:31 Pepcid PO 20 mg BID STEVEN Administration Furosemide 40 mg 03/08/17 18:00 03/13/17 05:06 Lasix IV 40 mg 0600,1800 STEVEN Administration Ceftriaxone Sodium 1 gm in 50 mls @ 100 mls/hr 03/08/17 18:00 03/12/17 17:30 Rocephin/Ns 1 Gm/50 Ml IV 100 mls/hr Q24H STEVEN Administration Protocol Insulin Aspart 0 units 03/09/17 16:30 03/13/17 12:36 Novolog SUB-Q 1 units ACHS STEVEN Administration Protocol Insulin Human Isoph/Insulin Regular 10 unit 03/09/17 17:00 03/13/17 08:56 Novolin 70/30 SUB-Q 10 unit BIDDIAB STEVEN Administration Magnesium Hydroxide 30 ml 03/08/17 13:54 Milk Of Magnesia PO Q4H PRN Constipation Ondansetron HCl 4 mg 03/08/17 13:54 Zofran IV Q8H PRN N/V unrelieved by Ray Subjective Date of service: 03/12/17 Principal diagnosis: Pneumonia Interval history: s/p Cardiac cath today. patient now on BiPAP family at bedside updated Objective - Exam Narrative Exam: General appearance: Present: no acute distress, obese (morbidly) - EENT Eyes: Present: PERRL, EOM intact - Neck Neck: Present: supple. Absent: enlarged thyroid, masses or JVD - Respiratory Respiratory effort: labored, on BiPAP Respiratory: bilateral: diminished, rales - Cardiovascular Rhythm: other Heart Sounds: Present: S1 & S2. Absent: systolic murmur - Extremities Extremities: no ischemia - Abdominal General gastrointestinal: soft, non-tender, non-distended, normal bowel sounds - Integumentary Integumentary: Present: warm, dry. Absent: jaundice, rash - Psychiatric Psychiatric: cooperative - Neurologic Neurologic: CNII-XII intact, no focal deficits - Constitutional Vitals: Vital Signs - 12hr 03/12/17 03/12/17 03/12/17 04:59 07:23 10:45 Temperature 98.7 F 98.3 F 99 F Pulse Rate 80 Respiratory 18 18 24 Rate Blood Pressure 145/88 155/88 162/93 O2 Sat by Pulse 98 97 Oximetry 03/12/17 03/12/17 03/12/17 11:00 11:15 11:30 Temperature Pulse Rate 78 79 75 Respiratory 24 25 H 28 H Rate Blood Pressure 163/86 154/89 155/90 O2 Sat by Pulse 97 97 97 Oximetry 03/12/17 15:00 Temperature 98.7 F Pulse Rate 80 Respiratory 28 H Rate Blood Pressure 152/81 O2 Sat by Pulse 97 Oximetry - Labs CBC & Chem 7: 03/12/17 04:53 03/11/17 03:44 Labs: Abnormal lab results 03/11/17 03/11/17 03/12/17 Range/Units 16:39 21:26 06:36 POC Glucose 141 H 193 H 125 H (70-105)
[2017-03-12] MEDS: ROCEPHIN/NS 1 GM/50 ML 1 GM/50 ML BAG IV SCH (17:30)
[2017-03-12] MEDS: BABY ASPIRIN PO SCH (17:31)
[2017-03-12] MEDS: PEPCID PO SCH ×2 (17:33→21:20)
[2017-03-12] MEDS: COREG PO SCH ×2 (17:33→21:20)
[2017-03-12] MEDS: ZITHROMAX PO SCH (18:46)
[2017-03-12] MEDS: LOVENOX SUB-Q SCH (21:20)
[2017-03-13] MEDS: LASIX IV SCH ×2 (05:06→17:31)
[2017-03-13] MEDS: NOVOLOG SUB-Q SCH ×4 (08:47→22:17)
[2017-03-13] MEDS: ZITHROMAX PO SCH (09:30)
[2017-03-13] MEDS: COREG PO SCH ×2 (09:30→22:19)
[2017-03-13] MEDS: BABY ASPIRIN PO SCH (09:30)
[2017-03-13] MEDS: PEPCID PO SCH ×2 (09:31→22:19)
--- NOTE | 2017-03-13 10:29 | Progress Note ---
<RACHELL VALDIVIA - Last Filed: 03/13/17 11:23> Assessment and Plan Acute respiratory failure Pulmonary edema Diabetes Hypertension Echocardiogram shows normal ventricle function with ejection fraction greater than 60%, there is moderate to severe calcification of the posterior leaflet of the mitral valve, but no evident significant mitral stenosis. R/L cardiac cath findings: 1. Subjective Date of service: 03/13/17 Principal diagnosis: Pneumonia Interval history: Patient reports she is feeling better. Pressure dressing to cardiac cath site. Objective Vital Signs Temp Pulse Resp BP Pulse Ox 03/13/17 09:55 94 03/13/17 09:33 98 03/13/17 09:30 134/71 03/13/17 08:24 98.4 F 86 18 134/71 87 03/13/17 03:47 98.2 F 77 24 123/76 100 03/12/17 23:22 96 03/12/17 23:18 88 30 H 96 03/12/17 22:31 98.8 F 94 H 20 154/91 91 03/12/17 21:20 97 H 156/84 03/12/17 17:33 152/81 03/12/17 15:00 98.7 F 80 28 H 152/81 97 03/12/17 11:30 75 28 H 155/90 97 03/12/17 11:15 79 25 H 154/89 97 03/12/17 11:00 78 24 163/86 97 03/12/17 10:45 99 F 24 162/93 97 - Physical Examination General: No Apparent Distress HEENT: Positive: PERRL Neck: Positive: trachea midline Cardiac: Positive: Reg Rate and Rhythm Lungs: Positive: Decreased Breath Sounds Neuro: Positive: Grossly Intact Incision: Cardiac Cath Site <IKER COLLINS - Last Filed: 03/13/17 17:22> Assessment and Plan - Patient Problems (1) Shortness of breath Current Visit: Yes Status: Acute Plan to address problem: Right and left heart catheterization done on this presentation reveals no significant coronary artery disease, well-preserved left ventricular systolic function, but moderate pulmonary hypertension with pulmonary artery systolic pressure of 52. Cardiac status is stable, we'll continue low-dose diuretics for heart failure with preserved ejection fraction. Recommend pulmonary evaluation for management of pulmonary hypertension, and evaluation and management of possible obstructive sleep apnea. Objective Vital Signs Temp Pulse Resp BP Pulse Ox 03/13/17 12:53 98 F 03/13/17 12:22 122.0 F H 18 144/83 03/13/17 09:55 94 03/13/17 09:33 98 03/13/17 09:30 134/71 03/13/17 08:24 98.4 F 86 18 134/71 87 03/13/17 03:47 98.2 F 77 24 123/76 100 03/12/17 23:22 96 03/12/17 23:18 88 30 H 96 03/12/17 22:31 98.8 F 94 H 20 154/91 91 03/12/17 21:20 97 H 156/84 03/12/17 17:33 152/81 - Labs and Meds Comprehensive Metabolic Panel 03/13/17 Range/Units 09:50 Sodium 140 (137-145) mmol/L Potassium 4.3 (3.6-5.0) mmol/L Chloride 97.5 L (98-107) mmol/L Carbon Dioxide 30 (22-30) mmol/L BUN 18 H (7-17) mg/dL Creatinine 0.7 (0.7-1.2) mg/dL Glucose 185 H (65-100) mg/dL Calcium 8.9 (8.4-10.2) mg/dL
[2017-03-13 16:31] LABS: Anion Gap 17 mmol/L; BUN/Creatinine Ratio 26; Blood Urea Nitrogen 18 mg/dL (7-17); Calcium 8.9 mg/dL (8.4-10.2); Carbon Dioxide 30 mmol/L (22-30); Chloride 97.5 mmol/L (98-107); Glucose 185 mg/dL (65-100); Potassium 4.3 mmol/L (3.6-5.0); Sodium 140 mmol/L (137-145)
--- NOTE | 2017-03-13 16:46 | Progress Note ---
Assessment and Plan Imp: 1. CAP +/- pulm edema 2. Sepsis per criteria, better 3. Acute respiratory failure, hypoxia 4. Morbid obesity w/ probable ROBBIN/OHS -> chronic CO2 retention 5. A/C respiratory failure, hypercapnea 6. Pulm HTN with elevated wedge per prelim. cath report, likely due to diastolic CHF, ROBBIN/OHS Rec: 1. Cont. Rocephin/Azithro; complete ~ 10 days of ABX 2. Cont. Lasix in light of RHC findings (LVEDP and PCWP elevated); should be on a chronic dose orally 3. Wean O2 as tolerated to keep sats 88-94%; check home O2 evaluation 4. CXR improving but would continue to f/u to resolution of infiltrates 5. Sodium avoidance, BP control 6. Chronic CO2 retention -> needs weight loss, outpatient PSG and PFTs (d/w patient and family) Plan of care reviewed w/ patient, she understands/agrees Subjective Date of service: 03/13/17 Principal diagnosis: Pneumonia Interval history: SOB is better per patient. On nasal cannula. No new complaints. Active Medications Acetaminophen (Tylenol) 650 mg PO Q4H PRN PRN Reason: Pain MILD(1-3)/Fever >100.5/WILDE Last Admin: 03/09/17 04:52 Dose: 650 mg Albuterol (Proventil) 2.5 mg IH Q4H PRN PRN Reason: Shortness Of Breath Aspirin (Baby Aspirin) 81 mg PO QDAY [facility] Last Admin: 03/13/17 09:30 Dose: 81 mg Azithromycin (Zithromax) 500 mg PO QDAY [facility] Last Admin: 03/13/17 09:30 Dose: 500 mg Bisacodyl (Dulcolax) 10 mg DE QDAY PRN PRN Reason: Constipation unrelieved by MOM Carvedilol (Coreg) 6.25 mg PO BID [facility] Last Admin: 03/13/17 09:30 Dose: 6.25 mg Enoxaparin Sodium (Lovenox) 40 mg SUB-Q QDAY@2200 [facility] Last Admin: 03/12/17 21:20 Dose: 40 mg Famotidine (Pepcid) 20 mg PO BID [facility] Last Admin: 03/13/17 09:31 Dose: 20 mg Furosemide (Lasix) 40 mg IV 0600,1800 [facility] Last Admin: 03/13/17 05:06 Dose: 40 mg Ceftriaxone Sodium (Rocephin/Ns 1 Gm/50 Ml) 1 gm in 50 mls @ 100 mls/hr IV Q24H STEVEN PRN Reason: Protocol Last Admin: 03/12/17 17:30 Dose: 100 mls/hr Insulin Aspart (Novolog) 0 units SUB-Q ACHS STEVEN PRN Reason: Protocol Last Admin: 03/13/17 12:36 Dose: 1 units Insulin Human Isoph/Insulin Regular (Novolin 70/30) 10 unit SUB-Q BIDDIAB [facility] Last Admin: 03/13/17 08:56 Dose: 10 unit Magnesium Hydroxide (Milk Of Magnesia) 30 ml PO Q4H PRN PRN Reason: Constipation Ondansetron HCl (Zofran) 4 mg IV Q8H PRN PRN Reason: N/V unrelieved by Ray Objective Vital Signs - 12hr 03/13/17 03/13/17 03/13/17 08:24 09:30 09:33 Temperature 98.4 F Pulse Rate 86 Respiratory 18 Rate Blood Pressure 134/71 134/71 O2 Sat by Pulse 87 98 Oximetry 03/13/17 03/13/17 03/13/17 09:55 12:22 12:53 Temperature 122.0 F H 98 F Pulse Rate Respiratory 18 Rate Blood Pressure 144/83 O2 Sat by Pulse 94 Oximetry Constitutional: no acute distress, alert, other (morbidly obese) Eyes: non-icteric ENT: oropharynx moist Neck: supple (and large in circumference) Effort: normal Ascultation: Bilateral: clear Percussion: Bilateral: not dull Cardiovascular: regular rate and rhythm (no mrg) Gastrointestinal: normoactive bowel sounds, soft, non-tender, non-distended Integumentary: normal Extremities: no cyanosis, no edema, pink and warm Neurologic: normal mental status, non-focal exam, pupils equal and round, CN II- XII normal Psychiatric: mood appropriate, affect normal CBC and BMP: 03/12/17 04:53 03/13/17 09:50 ABG, PT/INR, D-dimer: ABG POC ABG pH 7.339 (7.35-7.45) L 03/09/17 09:41 POC ABG pCO2 67.9 (35-45) H 03/09/17 09:41 POC ABG pO2 82 (80-105) 03/09/17 09:41 POC ABG HCO3 36.6 03/09/17 09:41 POC ABG Total CO2 39 03/09/17 09:41 POC ABG O2 Sat 95 03/09/17 09:41 PT/INR, D-dimer PT 13.9 Sec. (12.2-14.9) 03/11/17 03:44 INR 1.02 (0.87-1.13) 03/11/17 03:44 D-Dimer 621.89 ng/mlDDU (0-234) H 03/08/17 13:47 Abnormal lab findings: Abnormal Labs 03/08/17 03/08/17 03/08/17 17:53 18:54 21:21 [place] % (Auto) [place] # Heparin Anti-Xa Level 0.81 H POC ABG pH POC ABG pCO2 POC ABG pO2 Chloride Carbon Dioxide BUN Glucose POC Glucose 158 H 114 H Calcium 03/09/17 03/09/17 03/09/17 06:05 06:50 09:41 [place] % (Auto) [place] # Heparin Anti-Xa Level POC ABG pH 7.314 L 7.339 L POC ABG pCO2 72.1 H 67.9 H POC ABG pO2 75 L Chloride Carbon Dioxide BUN Glucose POC Glucose 144 H Calcium 03/09/17 03/09/17 03/09/17 11:43 16:13 21:24 [place] % (Auto) [place] # Heparin Anti-Xa Level POC ABG pH POC ABG pCO2 POC ABG pO2 Chloride Carbon Dioxide BUN Glucose POC Glucose 181 H 169 H 132 H Calcium 03/10/17 03/10/17 03/10/17 05:19 05:19 05:56 [place] % (Auto) 11.7 H [place] # 1.0 H Heparin Anti-Xa Level POC ABG pH POC ABG pCO2 POC ABG pO2 Chloride 97.1 L Carbon Dioxide BUN 28 H Glucose 115 H POC Glucose 120 H Calcium 03/10/17 03/10/17 03/10/17 12:02 17:00 21:09 [place] % (Auto) [place] # Heparin Anti-Xa Level POC ABG pH POC ABG pCO2 POC ABG pO2 Chloride Carbon Dioxide BUN Glucose POC Glucose 148 H 141 H 143 H Calcium 03/11/17 03/11/17 03/11/17 03:44 06:19 16:39 [place] % (Auto) [place] # Heparin Anti-Xa Level POC ABG pH POC ABG pCO2 POC ABG pO2 Chloride 96.4 L Carbon Dioxide 32 H BUN 24 H Glucose 128 H POC Glucose 120 H 141 H Calcium 8.2 L 03/11/17 03/12/17 03/12/17 21:26 06:36 21:12 [place] % (Auto) [place] # Heparin Anti-Xa Level POC ABG pH POC ABG pCO2 POC ABG pO2 Chloride Carbon Dioxide BUN Glucose POC Glucose 193 H 125 H 237 H Calcium 03/13/17 03/13/17 03/13/17 06:23 09:50 11:43 [place] % (Auto) [place] # Heparin Anti-Xa Level POC ABG pH POC ABG pCO2 POC ABG pO2 Chloride 97.5 L Carbon Dioxide BUN 18 H Glucose 185 H POC Glucose 137 H 183 H Calcium 03/13/17 16:24 [place] % (Auto) [place] # Heparin Anti-Xa Level POC ABG pH POC ABG pCO2 POC ABG pO2 Chloride Carbon Dioxide BUN Glucose POC Glucose 135 H Calcium Chest x-ray: report reviewed, image reviewed
[2017-03-13] MEDS: ROCEPHIN/NS 1 GM/50 ML 1 GM/50 ML BAG IV SCH (17:31)
--- NOTE | 2017-03-13 18:17 | Progress Note ---
Assessment and Plan /Acute respiratory failure hypoxemic hypercapnic - multifactorial including pulmonary hypertension, acute diastolic heart failure , PNA, sleep apnea and morbid obesity - Blood cultures obtained and started on IV antibiotics for b/l PNA - Continue diuresis with IV Lasix - as needed BiPAP, supplemental oxygen - Pulmonary following, patient still hypoxic and will need home O2 - likely to have chronic CO2 retention from possible underlying sleep apnea, morbid obesity and pulmonary hypertension /Acute diastolic heart failure - On beta hemant and Lasix, not an SAMANTHA inhibitor due to hyperkalemia - Monitoring I's and O's - Echo obtained, results showed 60- 65% EF /PHTN - Right heart cath revealed a elevated right heart pressures including moderate to severe pulmonary hypertension and elevated wedge pressure - will follow pulmonary recommendation, cont diuresis for now /Bilateral Pneumonia/Sepsis - Continue antibiotics - blood cx negative /Diabetes - On and SSI based on Accu-Cheks to assess insulin requirements /Morbid obesity/ROBBIN/OHS -Will need outpatient pulmonary follow-up for sleep study, PFTs - On BiPAP QHS and prn /DVT/GI prophylaxis Brief History: 46 years old morbidly obese -Serbian female with hypertension and diabetes admitted for severe shortness of breath. Radiological data: CTA chest 02/3017 - bilateral airspace disease, No PE CXR 03/08/17 - CHF with pulmonary edema CXR 03/11/17 - improved bobasilar opacities 2 d echo - EF 60 -65 % with diastolic dysfunction and calcification of posterior leaflets of mitral valve Cardiac cath on 03/12/2017: R/L cardiac cath findings: 1. moderate pulmonary hypertension with pulmonary artery systolic pressure of 52. 2. no significant coronary artery disease 3. well-preserved left ventricular systolic function Active meds: Generic Name Dose Route Start Last Admin Trade Name Freq PRN Reason Stop Dose Admin Acetaminophen 650 mg 03/08/17 13:54 03/09/17 04:52 Tylenol PO 650 mg Q4H PRN Administration Pain MILD(1-3)/Fever >100.5/WILDE Albuterol 2.5 mg 03/08/17 13:54 Proventil IH Q4H PRN Shortness Of Breath Aspirin 81 mg 03/09/17 16:00 03/14/17 09:47 Baby Aspirin PO 81 mg QDAY STEVEN Administration Azithromycin 500 mg 03/12/17 10:00 03/14/17 09:46 Zithromax PO 500 mg QDAY STEVEN Administration Bisacodyl 10 mg 03/08/17 13:54 Dulcolax [place] QDAY PRN Constipation unrelieved by MOM Carvedilol 6.25 mg 03/09/17 22:00 03/14/17 09:46 Coreg PO 6.25 mg BID STEVEN Administration Enoxaparin Sodium 40 mg 03/11/17 22:00 03/13/17 22:19 Lovenox SUB-Q 40 mg QDAY@2200 STEVEN Administration Famotidine 20 mg 03/08/17 22:00 03/14/17 09:47 Pepcid PO 20 mg BID STEVEN Administration Furosemide 40 mg 03/08/17 18:00 03/14/17 06:07 Lasix IV 40 mg 0600,1800 STEVEN Administration Ceftriaxone Sodium 1 gm in 50 mls @ 100 mls/hr 03/08/17 18:00 03/13/17 17:31 Rocephin/Ns 1 Gm/50 Ml IV 100 mls/hr Q24H STEVEN Administration Protocol Insulin Aspart 0 units 03/09/17 16:30 03/14/17 08:27 Novolog SUB-Q Not Given ACHS [facility] Protocol Insulin Human Isoph/Insulin Regular 10 unit 03/09/17 17:00 03/14/17 09:46 Novolin 70/30 SUB-Q 10 unit BIDDIAB STEVEN Administration Magnesium Hydroxide 30 ml 03/08/17 13:54 Milk Of Magnesia PO Q4H PRN Constipation Ondansetron HCl 4 mg 03/08/17 13:54 Zofran IV Q8H PRN N/V unrelieved by Haydenlan Microbiology 03/08/17 09:30 Peripheral/Venous Blood Culture - Final NO GROWTH AFTER 5 DAYS 03/08/17 09:30 Peripheral/Venous Blood Culture - Final NO GROWTH AFTER 5 DAYS Subjective Date of service: 03/13/17 Principal diagnosis: Pneumonia Interval history: patient on 3l n/c family at bedside updated Objective - Exam Narrative Exam: General appearance: Present: no acute distress, obese (morbidly) - EENT Eyes: Present: PERRL, EOM intact - Neck Neck: Present: supple. Absent: enlarged thyroid, masses or JVD - Respiratory Respiratory effort: labored, on BiPAP Respiratory: bilateral: diminished, rales - Cardiovascular Rhythm: other Heart Sounds: Present: S1 & S2. Absent: systolic murmur - Extremities Extremities: no ischemia - Abdominal General gastrointestinal: soft, non-tender, non-distended, normal bowel sounds - Integumentary Integumentary: Present: warm, dry. Absent: jaundice, rash - Psychiatric Psychiatric: cooperative - Neurologic Neurologic: CNII-XII intact, no focal deficits - Constitutional Vitals: Vital Signs - 12hr 03/13/17 03/13/17 03/13/17 08:24 09:30 09:33 Temperature 98.4 F Pulse Rate 86 Respiratory 18 Rate Blood Pressure 134/71 134/71 O2 Sat by Pulse 87 98 Oximetry 03/13/17 03/13/17 03/13/17 09:55 12:22 12:53 Temperature 122.0 F H 98 F Pulse Rate Respiratory 18 Rate Blood Pressure 144/83 O2 Sat by Pulse 94 Oximetry 03/13/17 16:00 Temperature 98.0 F Pulse Rate Respiratory 20 Rate Blood Pressure 175/86 O2 Sat by Pulse Oximetry - Labs CBC & Chem 7: 03/14/17 04:44 03/13/17 09:50 Labs: Abnormal lab results 03/12/17 03/13/17 03/13/17 Range/Units 21:12 06:23 09:50 Chloride 97.5 L (98-107) mmol/L BUN 18 H (7-17) mg/dL Glucose 185 H (65-100) mg/dL POC Glucose 237 H 137 H (70-105) 03/13/17 03/13/17 Range/Units 11:43 16:24 Chloride (98-107) mmol/L BUN (7-17) mg/dL Glucose (65-100) mg/dL POC Glucose 183 H 135 H (70-105)
[2017-03-13] MEDS: LOVENOX SUB-Q SCH (22:19)
[2017-03-14 05:32] LABS: Hematocrit 36.2 % (30.3-42.9); Hemoglobin 12.3 gm/dl (10.1-14.3)
[2017-03-14] MEDS: LASIX IV SCH ×2 (06:07→17:40)
[2017-03-14] MEDS: NOVOLOG SUB-Q SCH ×3 (08:27→17:39)
[2017-03-14] MEDS: COREG PO SCH (09:46)
[2017-03-14] MEDS: ZITHROMAX PO SCH (09:46)
[2017-03-14] MEDS: BABY ASPIRIN PO SCH (09:47)
[2017-03-14] MEDS: PEPCID PO SCH (09:47)
--- NOTE | 2017-03-14 10:07 | Progress Note ---
Assessment and Plan Acute respiratory failure Pulmonary edema Diabetes Hypertension Obese Echocardiogram shows normal ventricle function with ejection fraction greater than 60%, there is moderate to severe calcification of the posterior leaflet of the mitral valve, but no evident significant mitral stenosis. R/L cardiac cath findings: 1. moderate pulmonary hypertension with pulmonary artery systolic pressure of 52. 2. no significant coronary artery disease 3. well-preserved left ventricular systolic function Continue diuretics for heart failure with preserved ejection fraction. Stable cardiac kunz. Subjective Date of service: 03/14/17 Principal diagnosis: Pneumonia Interval history: Patient is sitting up in bedside chair. Reports her breathing is better. Objective Vital Signs Temp Pulse Pulse Resp BP Pulse Ox 03/14/17 09:46 131/80 03/14/17 08:22 96 03/14/17 07:24 98.1 F 81 20 131/80 92 03/14/17 04:22 98.5 F 28 H 122/70 03/14/17 01:56 75 16 100 03/14/17 00:15 98.8 F 24 141/78 03/13/17 22:34 76 24 100 03/13/17 22:20 87 22 99 03/13/17 22:19 84 147/80 03/13/17 22:00 100 03/13/17 19:24 98.8 F 22 147/80 03/13/17 16:00 98.0 F 20 175/86 03/13/17 12:53 98 F 03/13/17 12:22 122.0 F H 18 144/83 - Physical Examination General: No Apparent Distress HEENT: Positive: PERRL Neck: Positive: trachea midline Cardiac: Positive: Reg Rate and Rhythm Neuro: Positive: Grossly Intact Incision: Cardiac Cath Site Extremities: Absent: normal - Labs and Meds CBC 03/14/17 Range/Units 04:44 Hgb 12.3 (10.1-14.3) gm/dl Hct 36.2 (30.3-42.9) % Plt Count 176 (140-440) K/mm3 Comprehensive Metabolic Panel 03/13/17 Range/Units 09:50 Sodium 140 (137-145) mmol/L Potassium 4.3 (3.6-5.0) mmol/L Chloride 97.5 L (98-107) mmol/L Carbon Dioxide 30 (22-30) mmol/L BUN 18 H (7-17) mg/dL Creatinine 0.7 (0.7-1.2) mg/dL Glucose 185 H (65-100) mg/dL Calcium 8.9 (8.4-10.2) mg/dL
--- NOTE | 2017-03-14 11:07 | Discharge Summary ---
Providers - Providers Date of Admission: 03/08/17 13:54 Date of discharge: 03/14/17 Attending physician: CORNELIO RIVAS 03/08/17 15:46 Consult to Physician [CONS] Routine Consulting Provider: ARPITA REBOLLAR Reason For Exam: respiratory failure Place consult to:: DR. REBOLLAR Notified:: ANSWERING SERVICES Phone number called:: [phone] Was contact made?: Yes If yes, spoke with:: MOUNIKA Time called:: 17:09 Comment:: TEREZA NOTIFIED 03/08/17 15:48 Consult to Physician [CONS] Routine Consulting Provider: IKER COLLINS Reason For Exam: new onset chf Place consult to:: DR. COLLINS Notified:: ANSWERING SERVICES Phone number called:: [phone] Was contact made?: Yes If yes, spoke with:: MILO Time called:: 17:04 Comment:: TEREZA NOTIFIED 03/12/17 10:35 Consult to Cardiac Rehabilitation [CONS] Routine Reason For Exam: Cardiac Rehab Evaluation Primary care physician: COURT OFFICER Hospitalization Condition: Critical Hospital course: Discharge Diagnosis and management: /Acute respiratory failure hypoxemic hypercapnic - multifactorial including pulmonary hypertension, acute diastolic heart failure , PNA, sleep apnea and morbid obesity - Blood cultures obtained and started on IV antibiotics for b/l PNA - Continue diuresis with IV Lasix - as needed BiPAP, supplemental oxygen - Pulmonary following, patient still hypoxic and will need home O2 - likely to have chronic CO2 retention from possible underlying sleep apnea, morbid obesity and pulmonary hypertension /Acute diastolic heart failure - On beta hemant and Lasix, not an SAMANTHA inhibitor due to hyperkalemia - Monitoring I's and O's - Echo obtained, results showed 60- 65% EF /PHTN - Right heart cath revealed a elevated right heart pressures including moderate to severe pulmonary hypertension and elevated wedge pressure - will follow pulmonary recommendation, cont diuresis for now /Bilateral Pneumonia/Sepsis - Continue antibiotics - blood cx negative /Diabetes - On 30 and SSI based on Accu-Cheks to assess insulin requirements /Morbid obesity/ROBBIN/OHS -Will need outpatient pulmonary follow-up for sleep study, PFTs - On BiPAP QHS and prn /DVT/GI prophylaxis Brief History: 46 years old morbidly obese -[place] female with hypertension and diabetes admitted for severe shortness of breath. Radiological data: CTA chest 02/3017 - bilateral airspace disease, No PE CXR 03/08/17 - CHF with pulmonary edema CXR 03/11/17 - improved bobasilar opacities 2 d echo - EF 60 -65 % with diastolic dysfunction and calcification of posterior leaflets of mitral valve Cardiac cath on 03/12/2017: R/L cardiac cath findings: 1. moderate pulmonary hypertension with pulmonary artery systolic pressure of 52. 2. no significant coronary artery disease 3. well-preserved left ventricular systolic function Disposition: DC/TX-06 HOME [facility]ER [facility] Time spent for discharge: 32 minutes Core Measure Documentation - Palliative Care Palliative Care/ Comfort Measures: Not Applicable - Core Measures Any of the following diagnoses?: heart failure - Heart Failure Discharge Requirements SAMANTHA/ARB for LVSD if EF <40%: Not Applicable Beta hemant at discharge: Yes Exam - Physical Exam Narrative exam: General appearance: Present: no acute distress, obese (morbidly) - EENT Eyes: Present: PERRL, EOM intact - Neck Neck: Present: supple. Absent: enlarged thyroid, masses or JVD - Respiratory Respiratory effort: labored, on BiPAP Respiratory: bilateral: diminished, rales - Cardiovascular Rhythm: other Heart Sounds: Present: S1 & S2. Absent: systolic murmur - Extremities Extremities: no ischemia - Abdominal General gastrointestinal: soft, non-tender, non-distended, normal bowel sounds - Integumentary Integumentary: Present: warm, dry. Absent: jaundice, rash - Psychiatric Psychiatric: cooperative - Neurologic Neurologic: CNII-XII intact, no focal deficits - Constitutional Vitals: Temp Pulse Resp BP Pulse Ox 98.1 F 81 20 131/80 98 03/14/17 07:24 03/14/17 07:24 03/14/17 07:24 03/14/17 09:46 03/14/17 10:43 Plan Activity: advance as tolerated Weight Bearing Status: Non-Weight Bearing Diet: low fat, low salt, diabetic Follow up with: PRIMARY CARE, [Primary Care Provider] - 3-5 Days Prescriptions: Carvedilol [Coreg] 6.25 mg PO BID #60 tablet Furosemide [Lasix TAB] 40 mg PO QDAY #30 tablet Insulin NPH/Regular [NovoLIN 70/30] 10 unit SUB-Q BIDDIAB 30 Days Levofloxacin [Levaquin] 750 mg PO QDAY #5 tablet
[2017-03-14] MEDS ORDERED: Fluarix Quad 2017-2018(36 MOS+) IM ONE (12:16)
[2017-03-14] MEDS ORDERED: PNEUMOVAX 23 IM ONE (12:18)
--- NOTE | 2017-03-14 14:58 | Progress Note ---
Assessment and Plan Imp: 1. CAP +/- pulm edema 2. Sepsis per criteria, better 3. Acute respiratory failure, hypoxia 4. Morbid obesity w/ probable ROBBIN/OHS -> chronic CO2 retention 5. A/C respiratory failure, hypercapnea 6. Pulm HTN with elevated wedge per prelim. cath report, likely due to diastolic CHF, ROBBIN/OHS Rec: 1. Complete 10 days of ABX 2. Cont. Lasix in light of RHC findings (LVEDP and PCWP elevated); should be on a chronic dose orally 3. Home O2 arranged 4. CXR improving but would continue to f/u to resolution of infiltrates, next one being on outpatient f/u in 1-2 weeks 5. Sodium avoidance, BP control discussed 6. Chronic CO2 retention -> needs weight loss, outpatient PSG and PFTs (d/w patient and family) 7. Can go home pulmonary-kunz & f/u in office 1 week 8. She is pushing me to approve her taking a flight to [place] tomorrow so she can then go on a cruise; given her pneumonia/CHF/hypoxia, I do not recommend that she go on any flight/cruise at this time; she would need to be seen in the office first to ensure full recovery/stability; thus, I cannot in good conscience sign the oxygen permit for the flight; this was discussed with her and her mother, and both expressed full understanding Plan of care reviewed w/ patient, she understands/agrees Subjective Date of service: 03/14/17 Principal diagnosis: Pneumonia Interval history: SOB is better per patient. On nasal cannula. Hypoxia with exertion noted. No new complaints. Active Medications Acetaminophen (Tylenol) 650 mg PO Q4H PRN PRN Reason: Pain MILD(1-3)/Fever >100.5/WILDE Last Admin: 03/09/17 04:52 Dose: 650 mg Albuterol (Proventil) 2.5 mg IH Q4H PRN PRN Reason: Shortness Of Breath Aspirin (Baby Aspirin) 81 mg PO QDAY [facility] Last Admin: 03/14/17 09:47 Dose: 81 mg Azithromycin (Zithromax) 500 mg PO QDAY [facility] Last Admin: 03/14/17 09:46 Dose: 500 mg Bisacodyl (Dulcolax) 10 mg MI QDAY PRN PRN Reason: Constipation unrelieved by MOM Carvedilol (Coreg) 6.25 mg PO BID [facility] Last Admin: 03/14/17 09:46 Dose: 6.25 mg Enoxaparin Sodium (Lovenox) 40 mg SUB-Q QDAY@2200 [facility] Last Admin: 03/13/17 22:19 Dose: 40 mg Famotidine (Pepcid) 20 mg PO BID [facility] Last Admin: 03/14/17 09:47 Dose: 20 mg Furosemide (Lasix) 40 mg IV 0600,1800 [facility] Last Admin: 03/14/17 06:07 Dose: 40 mg Ceftriaxone Sodium (Rocephin/Ns 1 Gm/50 Ml) 1 gm in 50 mls @ 100 mls/hr IV Q24H [facility] PRN Reason: Protocol Last Admin: 03/13/17 17:31 Dose: 100 mls/hr Insulin Aspart (Novolog) 0 units SUB-Q ACHS [facility] PRN Reason: Protocol Last Admin: 03/14/17 12:15 Dose: 1 units Insulin Human Isoph/Insulin Regular (Novolin 70/30) 10 unit SUB-Q BIDDIAB [facility] Last Admin: 03/14/17 09:46 Dose: 10 unit Magnesium Hydroxide (Milk Of Magnesia) 30 ml PO Q4H PRN PRN Reason: Constipation Ondansetron HCl (Zofran) 4 mg IV Q8H PRN PRN Reason: N/V unrelieved by Reglan Objective Vital Signs - 12hr 03/14/17 03/14/17 03/14/17 04:22 07:24 08:22 Temperature 98.5 F 98.1 F Pulse Rate 81 Respiratory 28 H 20 Rate Blood Pressure 122/70 131/80 O2 Sat by Pulse 92 96 Oximetry 03/14/17 03/14/17 03/14/17 09:46 10:43 12:27 Temperature 98.2 F Pulse Rate Respiratory 20 Rate Blood Pressure 131/80 155/89 O2 Sat by Pulse 98 Oximetry Constitutional: no acute distress, alert, other (morbidly obese) Eyes: non-icteric ENT: oropharynx moist Neck: supple (and large in circumference) Effort: normal Ascultation: Bilateral: diminished breath sounds (bases) Percussion: Bilateral: not dull Cardiovascular: regular rate and rhythm (no mrg) Gastrointestinal: normoactive bowel sounds, soft, non-tender, non-distended Integumentary: normal Extremities: no cyanosis, no edema, pink and warm Neurologic: normal mental status, non-focal exam, pupils equal and round, CN II- XII normal Psychiatric: mood appropriate, affect normal CBC and BMP: 03/14/17 04:44 03/13/17 09:50 ABG, PT/INR, D-dimer: ABG POC ABG pH 7.339 (7.35-7.45) L 03/09/17 09:41 POC ABG pCO2 67.9 (35-45) H 03/09/17 09:41 POC ABG pO2 82 (80-105) 03/09/17 09:41 POC ABG HCO3 36.6 03/09/17 09:41 POC ABG Total CO2 39 03/09/17 09:41 POC ABG O2 Sat 95 03/09/17 09:41 PT/INR, D-dimer PT 13.9 Sec. (12.2-14.9) 03/11/17 03:44 INR 1.02 (0.87-1.13) 03/11/17 03:44 D-Dimer 621.89 ng/mlDDU (0-234) H 03/08/17 13:47 Abnormal lab findings: Abnormal Labs 03/08/17 03/08/17 03/08/17 17:53 18:54 21:21 [place] % (Auto) [place] # Heparin Anti-Xa Level 0.81 H POC ABG pH POC ABG pCO2 POC ABG pO2 Chloride Carbon Dioxide BUN Glucose POC Glucose 158 H 114 H Calcium 03/09/17 03/09/17 03/09/17 06:05 06:50 09:41 [place] % (Auto) [place] # Heparin Anti-Xa Level POC ABG pH 7.314 L 7.339 L POC ABG pCO2 72.1 H 67.9 H POC ABG pO2 75 L Chloride Carbon Dioxide BUN Glucose POC Glucose 144 H Calcium 03/09/17 03/09/17 03/09/17 11:43 16:13 21:24 [place] % (Auto) [place] # Heparin Anti-Xa Level POC ABG pH POC ABG pCO2 POC ABG pO2 Chloride Carbon Dioxide BUN Glucose POC Glucose 181 H 169 H 132 H Calcium 03/10/17 03/10/17 03/10/17 05:19 05:19 05:56 [place] % (Auto) 11.7 H [place] # 1.0 H Heparin Anti-Xa Level POC ABG pH POC ABG pCO2 POC ABG pO2 Chloride 97.1 L Carbon Dioxide BUN 28 H Glucose 115 H POC Glucose 120 H Calcium 03/10/17 03/10/17 03/10/17 12:02 17:00 21:09 [place] % (Auto) [place] # Heparin Anti-Xa Level POC ABG pH POC ABG pCO2 POC ABG pO2 Chloride Carbon Dioxide BUN Glucose POC Glucose 148 H 141 H 143 H Calcium 03/11/17 03/11/17 03/11/17 03:44 06:19 16:39 [place] % (Auto) [place] # Heparin Anti-Xa Level POC ABG pH POC ABG pCO2 POC ABG pO2 Chloride 96.4 L Carbon Dioxide 32 H BUN 24 H Glucose 128 H POC Glucose 120 H 141 H Calcium 8.2 L 03/11/17 03/12/17 03/12/17 21:26 06:36 21:12 [place] % (Auto) [place] # Heparin Anti-Xa Level POC ABG pH POC ABG pCO2 POC ABG pO2 Chloride Carbon Dioxide BUN Glucose POC Glucose 193 H 125 H 237 H Calcium 03/13/17 03/13/17 03/13/17 06:23 09:50 11:43 [place] % (Auto) [place] # Heparin Anti-Xa Level POC ABG pH POC ABG pCO2 POC ABG pO2 Chloride 97.5 L Carbon Dioxide BUN 18 H Glucose 185 H POC Glucose 137 H 183 H Calcium 03/13/17 03/13/17 03/14/17 16:24 21:13 06:01 [place] % (Auto) [place] # Heparin Anti-Xa Level POC ABG pH POC ABG pCO2 POC ABG pO2 Chloride Carbon Dioxide BUN Glucose POC Glucose 135 H 123 H 109 H Calcium 03/14/17 11:47 [place] % (Auto) [place] # Heparin Anti-Xa Level POC ABG pH POC ABG pCO2 POC ABG pO2 Chloride Carbon Dioxide BUN Glucose POC Glucose 153 H Calcium Chest x-ray: report reviewed, image reviewed
[2017-03-14 16:39] VITALS: BP 147/85
[2017-03-14] MEDS: ROCEPHIN/NS 1 GM/50 ML 1 GM/50 ML BAG IV SCH (17:56)
== END 2017-03-14 19:50 | disposition home health service (06) | DRG 871 ==
LOC: ED 11:59 → 3A 13:54
PROVIDERS: ADMIT Internal Medicine; ATTEND Internal Medicine
PROC: 4A033R1 Measurement of Arterial Saturation, Peripheral, Percutaneous Approach (ICD-10-PCS; 2017-03-08)
PROC: 5A09557 Assistance with Respiratory Ventilation, Greater than 96 Consecutive Hours, Continuous Positive Airway Pressure (ICD-10-PCS; 2017-03-08)
PROC: 4A023N8 Measurement of Cardiac Sampling and Pressure, Bilateral, Percutaneous Approach (ICD-10-PCS; principal; 2017-03-12)
PROC: B2111ZZ Fluoroscopy of Multiple Coronary Arteries using Low Osmolar Contrast (ICD-10-PCS; 2017-03-12)
PROC: B2161ZZ Fluoroscopy of Right and Left Heart using Low Osmolar Contrast (ICD-10-PCS; 2017-03-12)
PROC: 3E0234Z Introduction of Serum, Toxoid and Vaccine into Muscle, Percutaneous Approach (ICD-10-PCS; 2017-03-14)
DX: A41.9 Sepsis, unspecified organism (principal); J96.01 Acute respiratory failure with hypoxia; J96.02 Acute respiratory failure with hypercapnia; J18.9 Pneumonia, unspecified organism; I50.41 Acute combined systolic (congestive) and diastolic (congestive) heart failure; J81.1 Chronic pulmonary edema; Z68.43 Body mass index [BMI] 50.0-59.9, adult; E66.2 Morbid (severe) obesity with alveolar hypoventilation; I27.20 Pulmonary hypertension, unspecified; E11.9 Type 2 diabetes mellitus without complications; E88.81 Metabolic syndrome and other insulin resistance; I11.0 Hypertensive heart disease with heart failure; Z71.3 Dietary counseling and surveillance; Z79.82 Long term (current) use of aspirin; Z79.899 Other long term (current) drug therapy; Z79.4 Long term (current) use of insulin; Z23 Encounter for immunization; I25.10 Atherosclerotic heart disease of native coronary artery without angina pectoris
CPT/HCPCS: 36415; 71010; 71020; 71275; 80048; 80053; 82140; 82550; 82803; 82962; 83735; 83880; 84439; 84443; 84484; 85014; 85018; 85025; 85049; 85379; 85520; 85610; 85730; 87040; 90686; 90732; 93005; 93010; 93306; 93460; 94660; 94760; 96365; 96375; 99291; C1894; J0456; J0696; J1644; J1650; J1815; J1940; J1956; J2060; J2250; J3010; J7030; J7040; J7050; Q9967

== ENCOUNTER 2018-01-09 06:57 | Day surgery (SDC) | payer OTHER ==
[2018-01-09] MEDS ORDERED: NACL 0.9% 500 ML 500 ML IV SCH (09:00)
[2018-01-09 09:30] LABS: Basophils # (Auto) 0.1 K/mm3 (0.0-0.1); Basophils % (Auto) 1.2 % (0.0-1.8); Eosinophils # (Auto) 0.1 K/mm3 (0.0-0.4); Eosinophils % (Auto) 0.8 % (0.0-4.3); Hematocrit 38.3 % (30.3-42.9); Hemoglobin 13.4 gm/dl (10.1-14.3); Lymphocytes # (Auto) 2.7 K/mm3 (1.2-5.4); Lymphocytes % (Auto) 34.3 % (13.4-35.0); Mean Corpuscular HGB Conc 35 % (30-34); Mean Corpuscular Hemoglobin 32 pg (28-32); Mean Corpuscular Volume 91 fl (79-97); Monocytes # (Auto) 0.8 K/mm3 (0.0-0.8); Monocytes % (Auto) 10.2 % (0.0-7.3); Platelet Count 240 K/mm3 (140-440); Red Blood Count 4.21 M/mm3 (3.65-5.03); Red Cell Distribution Width 12.9 % (13.2-15.2)
[2018-01-09 09:42] LABS: Calcium 9.8 mg/dL (8.4-10.2); INR 0.86 (0.87-1.13)
[2018-01-09 10:34] VITALS: BP 157/97
[2018-01-09] MEDS ORDERED: HEPARIN/NS 5000 UNIT/500ML(CATH LAB) 0 ML IR ONE (10:56)
[2018-01-09] MEDS ORDERED: XYLOCAINE 2% INFILTRATI ONE (11:01)
[2018-01-09] MEDS ORDERED: VERSED ONE (11:03)
[2018-01-09] MEDS ORDERED: NITROGLYCERIN SYRINGE 0 ML ONE (11:03)
[2018-01-09] MEDS ORDERED: HEPARIN 10,000 UNITS/10 ML ONE (11:03)
[2018-01-09] MEDS ORDERED: CALAN ONE (11:03)
[2018-01-09] MEDS ORDERED: SUBLIMAZE ONE (11:03)
[2018-01-09] MEDS ORDERED: HEPARIN/NS 5000 UNIT/500ML(CATH LAB) 500 ML IR ONE (11:05)
--- NOTE | 2018-01-09 11:37 | Short Stay Summary ---
Short Stay Documentation Date of service: 01/09/18 - History H&P: obtained from office - Allergies and Medications Current Medications: Allergies No Known Allergies Allergy (Verified 10/27/13 06:07) Home Medications Medication Instructions Recorded Confirmed Last Taken Type Aspirin [Baby Aspirin] 1 tab PO DAILY 10/27/13 01/09/18 01/08/18 10:00 History Insulin Lispro Prot/Lispro 24 units SQ AMHY 05/20/14 01/09/18 01/08/18 18:00 History [Humalog Mix 75/25] Multivitamin [Multi-Vitamin Daily] 1 each PO DAILY 05/20/14 01/09/18 01/08/18 10 :00 History 1 tab Carvedilol [Coreg] 6.25 mg PO BID #60 tablet 03/14/17 01/09/18 01/08/18 18:00 Rx Furosemide [Lasix TAB] 40 mg PO QDAY #30 tablet 03/14/17 01/09/18 01/08/18 10: 00 Rx 40 mg Insulin NPH/Regular [NovoLIN 70/30] 14 unit SUB-Q BIDDIAB 01/09/18 01/09/1807/27 18:00 History 14 unit Active Medications Sodium Chloride (Nacl 0.9% 500 Ml) 500 mls @ 50 mls/hr IV DIRECT STEVEN Stop: 01/09/18 18:59 Last Admin: 01/09/18 10:30 Dose: 50 mls/hr - Physical exam General appearance: no acute distress Integumentary: no rash HEENT: Atraumatic Lungs: Clear to auscultation Breasts: deferred Heart: Regular rate Gastrointestinal: normal Female Genitourinary: deferred Rectal Exam: deferred Extremities: no ischemia - Brief post op/procedure progress note Date of procedure: 01/09/18 Pre-op diagnosis: Shortness of breath Post-op diagnosis: same Procedure: None. Procedure cancelled due to patient inability to lie flat Anesthesia: none - Disposition Condition at discharge: Good Disposition: DC-01 TO HOME OR SELFCARE Short Stay Discharge Plan Activity: advance as tolerated Weight Bearing Status: Weight Bear as Tolerated Diet: low salt
== END 2018-01-09 12:30 | disposition home or self-care (01) ==
LOC: CATHLABREC 06:57
PROVIDERS: ATTEND Internal Medicine
DX: R06.02 Shortness of breath (principal); I10 Essential (primary) hypertension; E11.9 Type 2 diabetes mellitus without complications; F41.9 Anxiety disorder, unspecified; E66.9 Obesity, unspecified; Z68.42 Body mass index [BMI] 45.0-49.9, adult; Z53.8 Procedure and treatment not carried out for other reasons; Z79.4 Long term (current) use of insulin; Z79.82 Long term (current) use of aspirin; Z98.891 History of uterine scar from previous surgery
CPT/HCPCS: 36415; 80048; 82962; 85025; 85610; 93005; 93010; 96372; J1644; J2250; J3010; J7040; J1815

== ENCOUNTER 2018-03-20 06:53 | Day surgery (SDC) | payer OTHER ==
[2018-03-20] MEDS ORDERED: VALIUM PO PRN (07:28)
[2018-03-20 07:57] LABS: Basophils # (Auto) 0.1 K/mm3 (0.0-0.1); Basophils % (Auto) 1.2 % (0.0-1.8); Eosinophils # (Auto) 0.1 K/mm3 (0.0-0.4); Eosinophils % (Auto) 0.8 % (0.0-4.3); Hematocrit 42.1 % (30.3-42.9); Hemoglobin 14.1 gm/dl (10.1-14.3); Lymphocytes % (Auto) 34.1 % (13.4-35.0); Mean Corpuscular HGB Conc 34 % (30-34); Mean Corpuscular Volume 92 fl (79-97); Monocytes # (Auto) 0.8 K/mm3 (0.0-0.8); Monocytes % (Auto) 9.3 % (0.0-7.3); Platelet Count 315 K/mm3 (140-440); Red Blood Count 4.59 M/mm3 (3.65-5.03); Red Cell Distribution Width 13.1 % (13.2-15.2)
[2018-03-20] MEDS ORDERED: NACL 0.9% 500 ML 500 ML IV SCH (08:00)
[2018-03-20 08:07] LABS: INR 0.85 (0.87-1.13)
[2018-03-20 08:09] LABS: BUN/Creatinine Ratio 31; Blood Urea Nitrogen 34 mg/dL (7-17); Calcium 9.6 mg/dL (8.4-10.2); Hemolysis Index 125
[2018-03-20] MEDS ORDERED: HEPARIN/NS 5000 UNIT/500ML(CATH LAB) 1,000 ML IR ONE (08:22)
[2018-03-20] MEDS ORDERED: XYLOCAINE 2% INFILTRATI ONE (08:23)
[2018-03-20] MEDS ORDERED: VERSED ONE (09:02)
[2018-03-20] MEDS ORDERED: SUBLIMAZE ONE (09:02)
[2018-03-20] MEDS ORDERED: HEPARIN 10,000 UNITS/10 ML ONE (09:10)
[2018-03-20] MEDS ORDERED: CALAN ONE (09:10)
[2018-03-20] MEDS ORDERED: NITROGLYCERIN SYRINGE 0 ML ONE (09:10)
[2018-03-20] MEDS ORDERED: BENADRYL ONE (09:30)
[2018-03-20] MEDS ORDERED: APRESOLINE ONE (09:44)
[2018-03-20 11:29] VITALS: BP 150/92
--- NOTE | 2018-03-20 11:35 | Cardiac Catherization Report ---
INDICATION FOR PROCEDURE: Pulmonary hypertension, shortness of breath. ORDERING PHYSICIAN: Michelet Tinajero MD PROCEDURE PERFORMED: Right heart catheterization with hemodynamic measurement and oxygen saturation run. DESCRIPTION OF PROCEDURE: 1. After obtaining the consent, the patient was draped using sterile technique. 2. A 2% lidocaine was injected into the right antecubital fossa. 3. A 6-Portuguese vascular sheath was inserted over a previously inserted peripheral IV line through the right AC. 4. A 6-Portuguese Vida-Anel catheter was used to measure right-sided hemodynamics and perform an oxygen saturation run. 5. No complications occurred during the procedure. Hemostasis was achieved at the end of the procedure using manual pressure. SPECIMEN REMOVED: None. ESTIMATED BLOOD LOSS: Minimal. SEDATION: Physician and the patient [id number]. Sedation start time 9:27 a.m. Physician and patient [id number]. Sedation stop time 9:40 a.m. Total sedation time is 13 minutes. FINDINGS: 1. The pulmonary capillary wedge pressure 30 mmHg. 2. Mean pulmonary artery pressure 58 mmHg. Pulmonary artery systolic pressure 85 mmHg. Pulmonary artery diastolic pressure 34 mmHg. 3. Right ventricular systolic pressure is 76 mmHg and right ventricular end-diastolic pressure 24 mmHg. 4. Right arterial pressure was 22 mmHg. 5. Pulmonary artery saturation 71%, right ventricular saturation 71%, right atrial saturation 72%, superior vena cava saturation 75%, aortic saturation 100%. Measurements were done on 2 liter nasal cannula. 6. Cardiac output 6.04 liters per minute. 7. Cardiac index 2.48 liters per minute per meter square. 8. Transpulmonary gradient 28 mmHg. 9. Pulmonary vascular resistance 4.63 Rodriguez units. 10. Diastolic pulmonary gradient of 4 mmHg. IMPRESSION: Evidence of severe pulmonary venous hypertension with elevated left and right-sided filling pressures. Preserved cardiac output and no evidence of intracardiac shunt. RECOMMENDATIONS: Continue diuresis, CPAP therapy, and weight loss. JOB# [id number] [place]RA[place]/SOFIA
--- NOTE | 2018-03-20 11:37 | Short Stay Summary ---
Short Stay Documentation Date of service: 03/20/18 - History H&P: obtained from office - Allergies and Medications Current Medications: Allergies No Known Allergies Allergy (Verified 10/27/13 06:07) Home Medications Medication Instructions Recorded Confirmed Last Taken Type Aspirin [Aspirin BABY CHEW TAB] 81 tab PO DAILY 10/27/13 03/20/18 03/19/18 History Multivitamin [Multi-Vitamin Daily] 1 each PO DAILY 05/20/14 03/20/18 03/19/18 History Carvedilol [Coreg] 6.25 mg PO BID #60 tablet 03/14/17 03/20/18 03/19/18 Rx Furosemide [Lasix TAB] 40 mg PO QDAY #30 tablet 03/14/17 03/20/18 03/19/18 Rx Insulin NPH/Regular [NovoLIN 70/30] 14 unit SUB-Q BIDDIAB 01/09/18 03/20/1804/26 History Losartan [Cozaar] 100 mg PO QDAY 03/20/18 03/20/18 03/19/18 History NIFEdipine [Nifedipine ER] 60 mg PO DAILY 03/20/18 03/20/18 03/19/18 History Potassium Citrate [Potassium 10 meq PO DAILY 03/20/18 03/20/18 03/18/18 History Citrate ER] Spironolactone [Aldactone] 25 mg PO QDAY 03/20/18 03/20/18 03/19/18 History metFORMIN [Glucophage] 500 mg PO BID 03/20/18 03/20/18 03/19/18 History metOLazone [Metolazone] 2.5 mg PO 3XW 03/20/18 03/20/18 03/18/18 History Active Medications Diazepam (Valium) 5 mg PO ONCE PRN PRN Reason: Anxiety Last Admin: 03/20/18 07:59 Dose: 5 mg Sodium Chloride (Nacl 0.9% 500 Ml) 500 mls @ 50 mls/hr IV DIRECT STEVEN Stop: 03/20/18 17:59 - Physical exam General appearance: no acute distress Integumentary: no rash HEENT: Atraumatic Lungs: Clear to auscultation Breasts: deferred Heart: Regular rate Gastrointestinal: normal Female Genitourinary: deferred Rectal Exam: deferred Extremities: pulses intact - Brief post op/procedure progress note Date of procedure: 03/20/18 Pre-op diagnosis: Shortness of breath Post-op diagnosis: same Procedure: RHC Anesthesia: MAC Findings: See report Surgeon: RENETTA BARROS Estimated blood loss: none Pathology: none Condition: stable - Hospital course Hospital course: Uneventful - Disposition Condition at discharge: Good Disposition: DC-01 TO HOME OR SELFCARE Short Stay Discharge Plan Activity: advance as tolerated Weight Bearing Status: Weight Bear as Tolerated Diet: low fat, low cholesterol, low salt, diabetic Follow up with: JEANNE SALES MD [Primary Care Provider] - 7 Days Forms: CardCath PCI D/C Instructions
== END 2018-03-20 12:10 | disposition home or self-care (01) ==
LOC: CATHLABREC 06:53
PROVIDERS: ATTEND Internal Medicine
DX: I27.20 Pulmonary hypertension, unspecified (principal); I10 Essential (primary) hypertension; F41.9 Anxiety disorder, unspecified; I73.9 Peripheral vascular disease, unspecified; Z79.899 Other long term (current) drug therapy; Z79.82 Long term (current) use of aspirin; Z79.84 Long term (current) use of oral hypoglycemic drugs; Z98.891 History of uterine scar from previous surgery; Z98.890 Other specified postprocedural states
CPT/HCPCS: 36415; 80048; 85025; 85610; 85730; 93451; C1894; J0360; J1200; J1644; J7040; J2250; J3010

== ENCOUNTER 2019-11-24 14:35 | Outpatient (CLI) | payer MEDICARE ==
[2019-11-24 15:36] LABS: ABG Base Excess 7.3 mmol/L (-2.0-3.0); ABG HCO3 34.2 mmol/L (20.0-26.0); ABG Methemoglobin 0.5 % (0.0-1.5); ABG Oxygen Saturation 87.9 % (95.0-99.0); ABG PCO2 59.6 mm Hg; ABG PH 7.376 pH Units (7.350-7.450); ABG PO2 52.1 mm Hg (80.0-90.0)
== END 2019-11-24 14:36 | disposition home or self-care (01) ==
LOC: LAB 14:35
PROVIDERS: ATTEND Internal Medicine Critical Care Medicine
DX: I27.20 Pulmonary hypertension, unspecified (principal); R06.02 Shortness of breath
CPT/HCPCS: 36600; 82803

== ENCOUNTER 2020-02-24 15:23 | Emergency (ER) | payer MEDICARE ==
--- NOTE | 2020-02-24 17:19 | Emergency Department Report ---
ED General Adult HPI - General Chief complaint: Extremity Injury, Lower Stated complaint: SWELLING LEGS/PAIN Time Seen by Provider: 02/24/20 17:00 Source: patient Mode of arrival: Wheelchair Limitations: No Limitations - History of Present Illness Initial comments: Patient is 49 years old female with history of congestive heart failure, diabetes and hypertension. Patient presented to the ER complaining of pain started in the right knee went down to her right ankle and then went to the left ankle. Patient denied any fever or chills. She stated that she have some shortness of breath but mostly with exertion. Patient is currently on home oxygen. Patient also denied any chest pain, abdominal pain, nausea or vomiting. -: days(s) Location: lower extremity Consistency: constant Improves with: immobilization Worsens with: movement Associated Symptoms: denies other symptoms - Related Data Home Medications Medication Instructions Recorded Confirmed Last Taken Aspirin [Aspirin BABY CHEW TAB] 81 tab PO DAILY 10/27/13 03/20/18 03/19/18 Multivitamin [Multi-Vitamin Daily] 1 each PO DAILY 05/20/14 03/20/18 03/19/18 Insulin NPH/Regular [NovoLIN 70/30] 14 unit SUB-Q BIDDIAB 01/09/18 03/20/18 03/19/18 Losartan [Cozaar] 100 mg PO QDAY 03/20/18 03/20/18 03/19/18 NIFEdipine [Nifedipine ER] 60 mg PO DAILY 03/20/18 03/20/18 03/19/18 Potassium Citrate [Potassium 10 meq PO DAILY 03/20/18 03/20/18 03/18/18 Citrate ER] Spironolactone [Aldactone] 25 mg PO QDAY 03/20/18 03/20/18 03/19/18 metFORMIN [Glucophage] 500 mg PO BID 03/20/18 03/20/18 03/19/18 metOLazone [Metolazone] 2.5 mg PO 3XW 03/20/18 03/20/18 03/18/18 Previous Rx's Medication Instructions Recorded Last Taken Type Furosemide [Lasix TAB] 40 mg PO QDAY #30 tablet 03/14/17 03/19/18 Rx carvediloL [Coreg] 6.25 mg PO BID #60 tablet 03/14/17 03/19/18 Rx Allergies Allergy/AdvReac Type Severity Reaction Status Date / Time No Known Allergies Allergy Verified 02/24/20 15:43 ED Review of Systems ROS: Stated complaint: SWELLING LEGS/PAIN Other details as noted in HPI Comment: All other systems reviewed and negative Constitutional: denies: chills, fever Respiratory: SOB with exertion. denies: orthopnea, SOB at rest, wheezing Cardiovascular: denies: chest pain, palpitations Gastrointestinal: denies: abdominal pain, nausea, vomiting, diarrhea, constipation, hematemesis, melena, hematochezia Genitourinary: denies: urgency, dysuria, frequency, hematuria Musculoskeletal: denies: back pain Neurological: denies: headache, weakness, numbness, paresthesias, confusion, abnormal gait ED Past Medical Hx - Past Medical History Hx Hypertension: Yes Hx Congestive Heart Failure: Yes Hx Diabetes: Yes Hx Asthma: No Hx COPD: No Hx Tuberculosis: No - Surgical History Hx Pacemaker: No Hx Internal Defibrillator: No - Social History Smoking Status: Never Smoker Substance Use Type: None - Medications Home Medications: Home Medications Medication Instructions Recorded Confirmed Last Taken Type Aspirin [Aspirin BABY CHEW TAB] 81 tab PO DAILY 10/27/13 03/20/18 03/19/18 History Multivitamin [Multi-Vitamin Daily] 1 each PO DAILY 05/20/14 03/20/18 03/19/18 History Furosemide [Lasix TAB] 40 mg PO QDAY #30 tablet 03/14/17 03/20/18 03/19/18 Rx carvediloL [Coreg] 6.25 mg PO BID #60 tablet 03/14/17 03/20/18 03/19/18 Rx Insulin NPH/Regular [NovoLIN 70/30] 14 unit SUB-Q BIDDIAB 01/09/18 03/20/1803/09 History Losartan [Cozaar] 100 mg PO QDAY 03/20/18 03/20/18 03/19/18 History NIFEdipine [Nifedipine ER] 60 mg PO DAILY 03/20/18 03/20/18 03/19/18 History Potassium Citrate [Potassium 10 meq PO DAILY 03/20/18 03/20/18 03/18/18 History Citrate ER] Spironolactone [Aldactone] 25 mg PO QDAY 03/20/18 03/20/18 03/19/18 History metFORMIN [Glucophage] 500 mg PO BID 03/20/18 03/20/18 03/19/18 History metOLazone [Metolazone] 2.5 mg PO 3XW 03/20/18 03/20/18 03/18/18 History ED Physical Exam - General Limitations: No Limitations General appearance: alert, in no apparent distress - Head Head exam: Present: atraumatic, normocephalic, normal inspection - Eye Eye exam: Present: normal appearance - ENT ENT exam: Present: normal exam, normal orophraynx, mucous membranes moist - Neck Neck exam: Present: normal inspection, full ROM. Absent: tenderness, meningismus, lymphadenopathy, thyromegaly - Respiratory Respiratory exam: Present: normal lung sounds bilaterally - Cardiovascular Cardiovascular Exam: Present: regular rate, normal rhythm, normal heart sounds - GI/Abdominal GI/Abdominal exam: Present: soft, normal bowel sounds. Absent: distended, tenderness, guarding, rebound, rigid, organomegaly, mass, bruit, pulsatile mass, hernia - Extremities Exam Extremities exam: Present: pedal edema (3) - Back Exam Back exam: Present: normal inspection, full ROM. Absent: CVA tenderness (R), CVA tenderness (L), muscle spasm, paraspinal tenderness, vertebral tenderness - Neurological Exam Neurological exam: Present: alert, oriented X3, CN II-XII intact, normal gait, reflexes normal. Absent: motor sensory deficit - Psychiatric Psychiatric exam: Present: normal mood - Skin Skin exam: Present: warm, intact, normal color ED Course Vital Signs 02/24/20 15:42 Temperature 98.3 F Pulse Rate 104 H Respiratory 16 Rate Blood Pressure 148/82 O2 Sat by Pulse 91 Oximetry ED Medical Decision Making - Lab Data Result diagrams: 02/24/20 17:09 02/24/20 17:09 - Radiology Data Radiology results: report reviewed - Medical Decision Making Patient is 49 years old female with history of congestive heart failure, diabetes and hypertension. Patient presented to the ER complaining of pain started in the right knee went down to her right ankle and then went to the left ankle. Patient denied any fever or chills. She stated that she have some shortness of breath but mostly with exertion. Patient is currently on home oxygen. Patient also denied any chest pain, abdominal pain, nausea or vomiting. Patient remained stable in the emergency room with a stable vital sign. Patient labs reviewed and is unremarkable. Chest x-ray is unremarkable. No evidence of acute exacerbation of CHF. Patient symptoms is most likely related to osteoarthritis since pain is mainly to the joints. Patient given prescription for tramadol and advised to follow-up with her primary doctor in the next 2 to 3 days. Patient also advised to return to the ER if she develop any new symptoms. Critical care attestation.: If time is entered above; I have spent that time in minutes in the direct care of this critically ill patient, excluding procedure time. ED Disposition Clinical Impression: Congestive heart failure, Peripheral edema, Arthralgia Disposition: DC- TO HOME OR SELFCARE Is pt being admited?: No Condition: Stable Instructions: Heart Failure (ED), Osteoarthritis (ED) Referrals: PRIMARY CARE, [Referring] - 3-5 Days
[2020-02-24 17:24] LABS: Basophils # (Auto) 0.1 K/mm3 (0.0-0.1); Basophils % (Auto) 0.9 % (0.0-1.8); Eosinophils # (Auto) 0.1 K/mm3 (0.0-0.4); Eosinophils % (Auto) 0.5 % (0.0-4.3); Hematocrit 27.1 % (30.3-42.9); Hemoglobin 9.2 gm/dl (10.1-14.3); Lymphocytes # (Auto) 1.9 K/mm3 (1.2-5.4); Lymphocytes % (Auto) 15.5 % (13.4-35.0); Mean Corpuscular HGB Conc 34 % (30-34); Mean Corpuscular Volume 87 fl (79-97); Monocytes # (Auto) 0.8 K/mm3 (0.0-0.8); Monocytes % (Auto) 6.6 % (0.0-7.3); Platelet Count 317 K/mm3 (140-440); Red Blood Count 3.12 M/mm3 (3.65-5.03); Red Cell Distribution Width 14.4 % (13.2-15.2)
[2020-02-24 17:41] LABS: INR 0.97 (0.87-1.13)
[2020-02-24 17:43] LABS: BUN/Creatinine Ratio 31; Blood Urea Nitrogen 90 mg/dL (7-17); Calcium 10.2 mg/dL (8.4-10.2); Hemolysis Index 2
--- NOTE | 2020-02-24 17:50 | XRay Report ---
CHEST 1 VIEW 02/24/2020 5:20 PM INDICATION / CLINICAL INFORMATION: Dyspnea. COMPARISON: Chest 2 views from 03/11/2017. FINDINGS: SUPPORT DEVICES: None. HEART / MEDIASTINUM: No significant abnormality. LUNGS / PLEURA: Low lung volumes with probable bibasilar atelectasis. No significant pleural effusion . No pneumothorax. ADDITIONAL FINDINGS: No significant additional findings. IMPRESSION: Low lung volumes with probable bibasilar atelectasis. Signer Name: Ozzy Fuentes MD Signed: 02/24/2020 5:46 PM Workstation Name: [id number]
[2020-02-24 18:02] LABS: Alanine Aminotransferase 19 units/L (7-56); Albumin 3.8 g/dL (3.9-5)
[2020-02-24 18:06] LABS: Bilirubin,Direct < 0.2 mg/dL (0-0.2)
[2020-02-24 19:15] VITALS: BP 168/95
== END 2020-02-24 19:03 | disposition home or self-care (01) ==
LOC: ED 15:23
DX: M25.561 Pain in right knee (principal); M25.571 Pain in right ankle and joints of right foot; M25.572 Pain in left ankle and joints of left foot; R60.9 Edema, unspecified; I50.9 Heart failure, unspecified; I11.0 Hypertensive heart disease with heart failure; E11.9 Type 2 diabetes mellitus without complications; Z79.4 Long term (current) use of insulin; Z79.84 Long term (current) use of oral hypoglycemic drugs; Z79.899 Other long term (current) drug therapy
CPT/HCPCS: 36415; 71045; 80048; 80076; 83880; 84484; 85025; 85610; 85730

== ENCOUNTER 2020-03-07 18:23 | Observation (INO) | payer MEDICARE ==
[2020-03-07] MEDS ORDERED: MINERAL OIL/PETROLATUM, WHITE OPHTH OINT 3.5 GM OU PRN (18:59)
[2020-03-07] MEDS ORDERED: LIP THERAPY VASELINE TP PRN (18:59)
--- NOTE | 2020-03-07 19:36 | XRay Report ---
CHEST 1 VIEW 03/07/2020 6:24 PM INDICATION / CLINICAL INFORMATION: intubation s/p respiratory arrest. COMPARISON: Chest one view dated 02/24/2020. FINDINGS: The patient is rotated to the right. SUPPORT DEVICES: An ET tube has been placed that terminates 4.5 cm above the gabo. HEART / MEDIASTINUM: No significant abnormality. LUNGS / PLEURA: Reduced lung volumes with nonspecific bilateral pulmonary opacities. No significant p leural effusion. No pneumothorax. ADDITIONAL FINDINGS: No significant additional findings. IMPRESSION: 1. Bilateral pulmonary opacities could represent atelectasis or pneumonia. 2. Satisfactory positioning of the ET tube. Signer Name: Ozzy Fuentes MD Signed: 03/07/2020 7:32 PM Workstation Name: [id number]
[2020-03-07 19:37] LABS: Hematocrit 28.8 % (30.3-42.9); Hemoglobin 8.8 gm/dl (10.1-14.3); Mean Corpuscular HGB Conc 31 % (30-34); Mean Corpuscular Volume 91 fl (79-97); Platelet Count 345 K/mm3 (140-440); Red Blood Count 3.16 M/mm3 (3.65-5.03); Red Cell Distribution Width 14.3 % (13.2-15.2)
[2020-03-07 19:44] LABS: Basophils # (Auto) 0.1 K/mm3 (0.0-0.1); Basophils % (Auto) 0.4 % (0.0-1.8); Eosinophils % (Auto) 0.1 % (0.0-4.3); Lymphocytes # (Auto) 2.4 K/mm3 (1.2-5.4); Lymphocytes % (Auto) 11.9 % (13.4-35.0); Monocytes # (Auto) 0.9 K/mm3 (0.0-0.8); Monocytes % (Auto) 4.3 % (0.0-7.3)
[2020-03-07 19:57] LABS: Calcium 9.4 mg/dL (8.4-10.2)
[2020-03-07 20:05] LABS: ABG Base Excess 8.1 mmol/L (-2.0-3.0); ABG HCO3 34.2 mmol/L (20.0-26.0); ABG Methemoglobin 0.5 % (0.0-1.5); ABG PCO2 58.3 mm Hg; ABG PH 7.386 pH Units (7.350-7.450); ABG PO2 170.9 mm Hg (80.0-90.0)
[2020-03-07] MEDS ORDERED: SODIUM CHLORIDE 0.9% 1000 ML IV SOLN IV ONE (20:23)
--- NOTE | 2020-03-07 20:34 | Emergency Department Report ---
ED Shortness of Breath HPI - General Chief Complaint: Cardiac Arrest/CPR Stated Complaint: YANG Time Seen by Provider: 03/07/20 18:58 Source: EMS, old records reviewed Mode of arrival: Stretcher Limitations: Altered Mental Status - History of Present Illness Initial Comments: 49-year-old female with a past medical history of morbid obesity, hypertension, diabetes, home oxygen therapy, pulmonary hypertension, and obstructive sleep apnea presents to the hospital with complaints of shortness of breath. As per EMS patient complained of shortness of breath for several hours prior to calling 911. Upon their arrival they found patient to be short of breath and it took approximately 15 minutes to get her to get onto the stretcher. Initial O2 saturation in the mid 60s but increased to 98% on nonrebreather. Upon arrival to the ED patient's O2 sat began to desat back down to the 60s and she became altered. I was went to the bedside once patient placed in the room and he was unresponsive at that point and upon transfer to the stretcher she became apneic and pulseless. Active bagging initiated with chest compressions while patient prepped for intubation. EMS was unable to place an IV in route so patient's prep for stat IO placement. Patient has had a right and left heart cath here with no evidence of CAD with positive pulmonary hypertension. At 8:45 PM collateral information obtained from patient's daughter. She states that yesterday patient fell landing on her knees and has been complaining an acute exacerbation of musculoskeletal pain. She was intimately rocking and making noises as if she was pain and having intermittent drooling. Since this morning patient was noted to be tachypneic and have intermittent episodes of alteration in mental status with drooling. Daughter called 911 because patient was less responsive with garbled speech with drooling. Upon EMS arrival patient was found to be significantly hypoxic. Daughter denies that patient has had infectious symptoms, fever or cough. She was seen here in the ED February 17 for leg swelling. Patient has been unable to wear her pants since because of significant lower extremity swelling. - Related Data Home Medications Medication Instructions Recorded Confirmed Last Taken Aspirin [Aspirin BABY CHEW TAB] 81 tab PO DAILY 10/27/13 03/20/18 03/19/18 Multivitamin [Multi-Vitamin Daily] 1 each PO DAILY 05/20/14 03/20/18 03/19/18 Insulin NPH/Regular [NovoLIN 70/30] 14 unit SUB-Q BIDDIAB 01/09/18 03/20/18 03/19/18 Losartan [Cozaar] 100 mg PO QDAY 03/20/18 03/20/18 03/19/18 NIFEdipine [Nifedipine ER] 60 mg PO DAILY 03/20/18 03/20/18 03/19/18 Potassium Citrate [Potassium 10 meq PO DAILY 03/20/18 03/20/18 03/18/18 Citrate ER] Spironolactone [Aldactone] 25 mg PO QDAY 03/20/18 03/20/18 03/19/18 metFORMIN [Glucophage] 500 mg PO BID 03/20/18 03/20/18 03/19/18 metOLazone [Metolazone] 2.5 mg PO 3XW 03/20/18 03/20/18 03/18/18 Previous Rx's Medication Instructions Recorded Last Taken Type Furosemide [Lasix TAB] 40 mg PO QDAY #30 tablet 03/14/17 03/19/18 Rx carvediloL [Coreg] 6.25 mg PO BID #60 tablet 03/14/17 03/19/18 Rx Ondansetron [Zofran Odt] 4 mg PO Q8HR PRN #14 tab.rapdis 02/24/20 Unknown Rx traMADoL [Ultram 50 MG tab] 50 mg PO Q4HR PRN #14 tablet 02/24/20 Unknown Rx Allergies Allergy/AdvReac Type Severity Reaction Status Date / Time No Known Allergies Allergy Verified 03/07/20 19:56 ED Review of Systems ROS: Stated complaint: YANG Other details as noted in HPI ED Past Medical Hx - Past Medical History Hx Hypertension: Yes Hx Congestive Heart Failure: Yes Hx Diabetes: Yes Hx Asthma: No Hx COPD: No Hx Tuberculosis: No - Surgical History Hx Pacemaker: No Hx Internal Defibrillator: No - Social History Smoking Status: Smoker, Current Status Unknown - Medications Home Medications: Home Medications Medication Instructions Recorded Confirmed Last Taken Type Aspirin [Aspirin BABY CHEW TAB] 81 tab PO DAILY 10/27/13 03/20/18 03/19/18 History Multivitamin [Multi-Vitamin Daily] 1 each PO DAILY 05/20/14 03/20/18 03/19/18 History Furosemide [Lasix TAB] 40 mg PO QDAY #30 tablet 03/14/17 03/20/18 03/19/18 Rx carvediloL [Coreg] 6.25 mg PO BID #60 tablet 03/14/17 03/20/18 03/19/18 Rx Insulin NPH/Regular [NovoLIN 70/30] 14 unit SUB-Q BIDDIAB 01/09/18 03/20/18 03/19/18 History Losartan [Cozaar] 100 mg PO QDAY 03/20/18 03/20/18 03/19/18 History NIFEdipine [Nifedipine ER] 60 mg PO DAILY 03/20/18 03/20/18 03/19/18 History Potassium Citrate [Potassium 10 meq PO DAILY 03/20/18 03/20/18 03/18/18 History Citrate ER] Spironolactone [Aldactone] 25 mg PO QDAY 03/20/18 03/20/18 03/19/18 History metFORMIN [Glucophage] 500 mg PO BID 03/20/18 03/20/18 03/19/18 History metOLazone [Metolazone] 2.5 mg PO 3XW 03/20/18 03/20/18 03/18/18 History Ondansetron [Zofran Odt] 4 mg PO Q8HR PRN #14 tab.rapdis 02/24/20 Unknown Rx traMADoL [Ultram 50 MG tab] 50 mg PO Q4HR PRN #14 tablet 02/24/20 Unknown Rx ED Physical Exam - General Limitations: Altered Mental Status ED Course Vital Signs 03/07/20 03/07/20 03/07/20 18:48 19:00 19:16 Pulse Rate 105 H 96 H Respiratory 18 22 Rate Blood Pressure 145/121 145/121 O2 Sat by Pulse 100 99 100 Oximetry 03/07/20 03/07/20 03/07/20 19:30 19:35 19:46 Pulse Rate 91 H 86 Respiratory 19 16 Rate Blood Pressure 117/89 86/25 O2 Sat by Pulse 100 100 Oximetry 03/07/20 03/07/20 03/07/20 20:00 20:15 20:30 Pulse Rate 84 82 83 Respiratory 20 20 18 Rate Blood Pressure 86/25 85/34 85/34 O2 Sat by Pulse 100 100 100 Oximetry 03/07/20 03/07/20 03/07/20 20:45 21:00 21:15 Pulse Rate 81 90 91 H Respiratory 24 20 23 Rate Blood Pressure 61/35 115/80 131/74 O2 Sat by Pulse 99 94 95 Oximetry 03/07/20 03/07/20 03/07/20 21:30 21:45 22:00 Pulse Rate 92 H 92 H 95 H Respiratory 24 23 25 H Rate Blood Pressure 133/87 148/70 148/76 O2 Sat by Pulse 97 98 98 Oximetry 03/07/20 03/07/20 03/07/20 22:15 22:30 22:45 Pulse Rate 95 H 100 H 101 H Respiratory 24 24 24 Rate Blood Pressure 151/82 155/91 144/93 O2 Sat by Pulse 97 97 97 Oximetry 03/07/20 03/07/20 03/07/20 23:00 23:15 23:30 Pulse Rate 104 H 105 H 101 H Respiratory 39 H 30 H 24 Rate Blood Pressure 154/94 144/83 144/83 O2 Sat by Pulse 95 93 94 Oximetry 03/07/20 03/08/20 23:45 00:00 Pulse Rate 97 H 103 H Respiratory 24 43 H Rate Blood Pressure 133/86 143/81 O2 Sat by Pulse 95 87 Oximetry - Reevaluation(s) Reevaluation #1: 03/07/20 20:58 CPR was initiated upon patient's transfer to the [facility] by EMS. Patient's initial rhythm at 18:27 was asystole. Chest compressions and bag valve mask ventilations initiated. Left leg IO placed and patient intubated using glide scope. Patient received a total of 4 doses of epinephrine IO and 1 dose of sodium bicarb. Patient's primary rhythm was asystole, then PEA, then developed ROCS sinus tach 123 at 18:45. Blood sugar during resuscitation was 251 03/07/20 20:21 Instructed respiratory therapist to advance ET tube by 2 cm since x-ray reveals that it is 4.5 cm above the gabo - Intubation Time Out Performed: No Laryngoscope: other (glidescope) Size: 4 ET Tube Size: 7.5 Tube Secured Depth (cm): 24 Tube Secured Location: teeth Tube Placement Confirmation: visualized tube passing t, equal breath sounds bilat, no breath sounds over epi, confirmation by capnometr Patient Tolerated Procedure: well Intubation Complications: none ED Medical Decision Making - Lab Data Result diagrams: 03/07/20 19:13 03/07/20 20:57 Lab Results 03/07/20 03/07/20 03/07/20 Range/Units 18:57 19:13 19:13 WBC 20.6 H (4.5-11.0) K/mm3 RBC 3.16 L (3.65-5.03) M/mm3 Hgb 8.8 L (10.1-14.3) gm/dl Hct 28.8 L (30.3-42.9) % MCV 91 (79-97) fl MCH 28 (28-32) pg MCHC 31 (30-34) % RDW 14.3 (13.2-15.2) % Plt Count 345 (140-440) K/mm3 Lymph % (Auto) 11.9 L (13.4-35.0) % Grand % (Auto) 4.3 (0.0-7.3) % Eos % (Auto) 0.1 (0.0-4.3) % Baso % (Auto) 0.4 (0.0-1.8) % Lymph # (Auto) 2.4 (1.2-5.4) K/mm3 Grand # (Auto) 0.9 H (0.0-0.8) K/mm3 Eos # (Auto) 0.0 (0.0-0.4) K/mm3 Baso # (Auto) 0.1 (0.0-0.1) K/mm3 Seg Neutrophils % 83.3 H (40.0-70.0) % Seg Neutrophils # 17.2 H (1.8-7.7) K/mm3 D-Dimer (0-234) ng/mlDDU ABG pH (7.350-7.450) pH Units ABG pCO2 mm Hg ABG pO2 (80.0-90.0) mm Hg ABG HCO3 (20.0-26.0) mmol/L ABG O2 Saturation (95.0-99.0) % ABG O2 Content (0.0-44) ABG Base Excess (-2.0-3.0) mmol/L ABG Hemoglobin (12.0-16.0) gm/dl ABG Carboxyhemoglobin (0.0-5.0) % ABG Methemoglobin (0.0-1.5) % Oxyhemoglobin (95.0-99.0) % FiO2 % Sodium (137-145) mmol/L Potassium (3.6-5.0) mmol/L Chloride (98-107) mmol/L Carbon Dioxide (22-30) mmol/L Anion Gap mmol/L BUN (7-17) mg/dL Creatinine (0.6-1.2) mg/dL Estimated GFR ml/min BUN/Creatinine Ratio % Glucose (65-100) mg/dL POC Glucose 251 H (70-105) Lactic Acid 3.40 H* (0.7-2.0) mmol/L Calcium (8.4-10.2) mg/dL Ferritin (10.0-200.0) ng/mL Total Bilirubin (0.1-1.2) mg/dL AST (5-40) units/L ALT (7-56) units/L Alkaline Phosphatase (35-129) units/L Lactate Dehydrogenase (91-180) units/L Total Creatine Kinase (30-135) units/L Troponin T (0.00-0.029) ng/mL C-Reactive Protein (0.00-1.30) mg/dL NT-Pro-B Natriuret Pep (0-450) pg/mL Total Protein (6.3-8.2) g/dL Albumin (3.9-5) g/dL Albumin/Globulin Ratio % 03/07/20 03/07/20 03/07/20 Range/Units 19:13 19:13 19:35 WBC (4.5-11.0) K/mm3 RBC (3.65-5.03) M/mm3 Hgb (10.1-14.3) gm/dl Hct (30.3-42.9) % MCV (79-97) fl MCH (28-32) pg MCHC (30-34) % RDW (13.2-15.2) % Plt Count (140-440) K/mm3 Lymph % (Auto) (13.4-35.0) % Grand % (Auto) (0.0-7.3) % Eos % (Auto) (0.0-4.3) % Baso % (Auto) (0.0-1.8) % Lymph # (Auto) (1.2-5.4) K/mm3 Grand # (Auto) (0.0-0.8) K/mm3 Eos # (Auto) (0.0-0.4) K/mm3 Baso # (Auto) (0.0-0.1) K/mm3 Seg Neutrophils % (40.0-70.0) % Seg Neutrophils # (1.8-7.7) K/mm3 D-Dimer (0-234) ng/mlDDU ABG pH 7.386 (7.350-7.450) pH Units ABG pCO2 58.3 mm Hg ABG pO2 170.9 H (80.0-90.0) mm Hg ABG HCO3 34.2 H (20.0-26.0) mmol/L ABG O2 Saturation 99.0 (95.0-99.0) % ABG O2 Content 11.6 (0.0-44) ABG Base Excess 8.1 H (-2.0-3.0) mmol/L ABG Hemoglobin 8.2 L (12.0-16.0) gm/dl ABG Carboxyhemoglobin 1.8 (0.0-5.0) % ABG Methemoglobin 0.5 (0.0-1.5) % Oxyhemoglobin 96.7 (95.0-99.0) % FiO2 100 % Sodium 143 (137-145) mmol/L Potassium 5.3 H (3.6-5.0) mmol/L Chloride 95.9 L (98-107) mmol/L Carbon Dioxide 33 H (22-30) mmol/L Anion Gap 19 mmol/L BUN 39 H (7-17) mg/dL Creatinine 2.4 H (0.6-1.2) mg/dL Estimated GFR 26 ml/min BUN/Creatinine Ratio 16 % Glucose 277 H (65-100) mg/dL POC Glucose (70-105) Lactic Acid (0.7-2.0) mmol/L Calcium 9.4 (8.4-10.2) mg/dL Ferritin (10.0-200.0) ng/mL Total Bilirubin 0.40 (0.1-1.2) mg/dL AST 24 (5-40) units/L ALT 18 (7-56) units/L Alkaline Phosphatase 90 (35-129) units/L Lactate Dehydrogenase (91-180) units/L Total Creatine Kinase 264 H (30-135) units/L Troponin T < 0.010 (0.00-0.029) ng/mL C-Reactive Protein (0.00-1.30) mg/dL NT-Pro-B Natriuret Pep 2343 H (0-450) pg/mL Total Protein 8.3 H (6.3-8.2) g/dL Albumin 3.0 L (3.9-5) g/dL Albumin/Globulin Ratio 0.6 % 03/07/20 03/07/20 03/07/20 Range/Units 20:36 20:57 20:57 WBC (4.5-11.0) K/mm3 RBC (3.65-5.03) M/mm3 Hgb (10.1-14.3) gm/dl Hct (30.3-42.9) % MCV (79-97) fl MCH (28-32) pg MCHC (30-34) % RDW (13.2-15.2) % Plt Count (140-440) K/mm3 Lymph % (Auto) (13.4-35.0) % Grand % (Auto) (0.0-7.3) % Eos % (Auto) (0.0-4.3) % Baso % (Auto) (0.0-1.8) % Lymph # (Auto) (1.2-5.4) K/mm3 Grand # (Auto) (0.0-0.8) K/mm3 Eos # (Auto) (0.0-0.4) K/mm3 Baso # (Auto) (0.0-0.1) K/mm3 Seg Neutrophils % (40.0-70.0) % Seg Neutrophils # (1.8-7.7) K/mm3 D-Dimer 3259.38 H (0-234) ng/mlDDU ABG pH (7.350-7.450) pH Units ABG pCO2 mm Hg ABG pO2 (80.0-90.0) mm Hg ABG HCO3 (20.0-26.0) mmol/L ABG O2 Saturation (95.0-99.0) % ABG O2 Content (0.0-44) ABG Base Excess (-2.0-3.0) mmol/L ABG Hemoglobin (12.0-16.0) gm/dl ABG Carboxyhemoglobin (0.0-5.0) % ABG Methemoglobin (0.0-1.5) % Oxyhemoglobin (95.0-99.0) % FiO2 % Sodium (137-145) mmol/L Potassium (3.6-5.0) mmol/L Chloride (98-107) mmol/L Carbon Dioxide (22-30) mmol/L Anion Gap mmol/L BUN (7-17) mg/dL Creatinine (0.6-1.2) mg/dL Estimated GFR ml/min BUN/Creatinine Ratio % Glucose 255 H (65-100) mg/dL POC Glucose (70-105) Lactic Acid 4.70 H* (0.7-2.0) mmol/L Calcium (8.4-10.2) mg/dL Ferritin (10.0-200.0) ng/mL Total Bilirubin (0.1-1.2) mg/dL AST (5-40) units/L ALT (7-56) units/L Alkaline Phosphatase (35-129) units/L Lactate Dehydrogenase 308 H (91-180) units/L Total Creatine Kinase (30-135) units/L Troponin T (0.00-0.029) ng/mL C-Reactive Protein 5.50 H (0.00-1.30) mg/dL NT-Pro-B Natriuret Pep (0-450) pg/mL Total Protein (6.3-8.2) g/dL Albumin (3.9-5) g/dL Albumin/Globulin Ratio % 03/07/20 03/07/20 Range/Units 20:57 22:56 WBC (4.5-11.0) K/mm3 RBC (3.65-5.03) M/mm3 Hgb (10.1-14.3) gm/dl Hct (30.3-42.9) % MCV (79-97) fl MCH (28-32) pg MCHC (30-34) % RDW (13.2-15.2) % Plt Count (140-440) K/mm3 Lymph % (Auto) (13.4-35.0) % Grand % (Auto) (0.0-7.3) % Eos % (Auto) (0.0-4.3) % Baso % (Auto) (0.0-1.8) % Lymph # (Auto) (1.2-5.4) K/mm3 Grand # (Auto) (0.0-0.8) K/mm3 Eos # (Auto) (0.0-0.4) K/mm3 Baso # (Auto) (0.0-0.1) K/mm3 Seg Neutrophils % (40.0-70.0) % Seg Neutrophils # (1.8-7.7) K/mm3 D-Dimer (0-234) ng/mlDDU ABG pH (7.350-7.450) pH Units ABG pCO2 mm Hg ABG pO2 (80.0-90.0) mm Hg ABG HCO3 (20.0-26.0) mmol/L ABG O2 Saturation (95.0-99.0) % ABG O2 Content (0.0-44) ABG Base Excess (-2.0-3.0) mmol/L ABG Hemoglobin (12.0-16.0) gm/dl ABG Carboxyhemoglobin (0.0-5.0) % ABG Methemoglobin (0.0-1.5) % Oxyhemoglobin (95.0-99.0) % FiO2 % Sodium (137-145) mmol/L Potassium (3.6-5.0) mmol/L Chloride (98-107) mmol/L Carbon Dioxide (22-30) mmol/L Anion Gap mmol/L BUN (7-17) mg/dL Creatinine (0.6-1.2) mg/dL Estimated GFR ml/min BUN/Creatinine Ratio % Glucose (65-100) mg/dL POC Glucose (70-105) Lactic Acid 1.50 (0.7-2.0) mmol/L Calcium (8.4-10.2) mg/dL Ferritin 389.9 H (10.0-200.0) ng/mL Total Bilirubin (0.1-1.2) mg/dL AST (5-40) units/L ALT (7-56) units/L Alkaline Phosphatase (35-129) units/L Lactate Dehydrogenase (91-180) units/L Total Creatine Kinase (30-135) units/L Troponin T (0.00-0.029) ng/mL C-Reactive Protein (0.00-1.30) mg/dL NT-Pro-B Natriuret Pep (0-450) pg/mL Total Protein (6.3-8.2) g/dL Albumin (3.9-5) g/dL Albumin/Globulin Ratio % - EKG Data -: EKG Interpreted by Me EKG shows normal: sinus rhythm, ST-T waves (no stemi) Rate: normal (84) - Radiology Data Radiology results: report reviewed CHEST 1 VIEW 03/07/2020 6:24 PM INDICATION / CLINICAL INFORMATION: intubation s/p respiratory arrest. COMPARISON: Chest one view dated 02/24/2020. FINDINGS: The patient is rotated to the right. SUPPORT DEVICES: An ET tube has been placed that terminates 4.5 cm above the gabo. HEART / MEDIASTINUM: No significant abnormality. LUNGS / PLEURA: Reduced lung volumes with nonspecific bilateral pulmonary opacities. No significant pleural effusion. No pneumothorax. ADDITIONAL FINDINGS: No significant additional findings. IMPRESSION: 1. Bilateral pulmonary opacities could represent atelectasis or pneumonia. 2. Satisfactory positioning of the ET tube. CT head/brain wo con INDICATION: Altered Mental Status. TECHNIQUE: Routine CT head without contrast. All CT scans at this location are performed using CT dose reduction for [employer] by means of automated exposure control. COMPARISON: None. FINDINGS: BRAIN / INTRACRANIAL CONTENTS: No acute hemorrhage, mass effect, midline shift, or hydrocephalus. No appreciable acute large territorial or lacunar infarct. No chronic infarct or focal atrophy. Normal brain volume and ventricular/sulcal size for age. ORBITS: No significant abnormality of visualized orbits. SINUSES / MASTOIDS: There is a mucous retention cyst in the left maxillary sinus. ADDITIONAL FINDINGS: None. IMPRESSION: 1. No acute intracranial abnormality. CT CHEST WITHOUT CONTRAST HISTORY: Respiratory failure COMPARISON: Chest x-ray done earlier on 03/07/2020. TECHNIQUE: Routine chest CT exam performed without contrast. Lack of intravenous contrast limits evaluation of the vascular and solid organs.. All CT scans at this location are performed using CT dose reduction for [employer] by means of automated exposure control. CONTRAST: None. FINDINGS: CT CHEST: Lungs: There are diffuse patchy bilateral areas of consolidation and groundglass opacification. There is no pleural effusion or pneumothorax. Trachea and Bronchi: ET tube appears well positioned. Heart and Pericardium: Mild coronary atherosclerotic calcifications. Vasculature: No significant abnormality. Lymphatics: No lymphadenopathy. Osseous Structures: No aggressive appearing osseous lesions. Additional Findings: None IMPRESSION: 1. Diffuse bilateral patchy areas of consolidation and groundglass opacification likely reflecting multifocal pneumonia, potentially viral pneumonia. - Medical Decision Making Patient presented with initial cardiopulmonary arrest likely secondary to hypoxia with return of spontaneous circulation with ACLS. Patient was in ER for several hours awaiting completion of work-up prior to admission. Work-up revealed bilateral multifocal pneumonia and septic shock requiring initiation of Levophed. Patient treated with Rocephin and azithromycin for community-acquired pneumonia. Patient placed in respiratory isolation for COVID rule out. COVID order set and sepsis order set placed. Patient received Decadron 6 mg IV. Patient had recurrent cardiopulmonary arrest while being changed by RN after a bowel movement. Patient developed asystole. She was treated with epinephrine, sodium bicarb, and repeat Accu-Chek in the 300s. Patient had a wide-complex re perfusion rhythm that then deteriorated to PEA. After third arrest episode patient treated with chest compressions and additional epinephrine doses with return of spontaneous circulation and a narrow complex cardiac rhythm. Repeat EKG shows sinus rhythm rate 96 with right axis deviation without ST elevation or signs of ischemia. CT head unremarkable. Patient mid to the hospital service for further treatment. Consults ordered for critical care attending and infectious disease physician Critical Care Time: Yes Critical care time in (mins) excluding proc time.: 120 Critical care attestation.: If time is entered above; I have spent that time in minutes in the direct care of this critically ill patient, excluding procedure time. ED Disposition Clinical Impression: Cardiopulmonary arrest with successful resuscitation, Acute respiratory failure, Suspected COVID-19 virus infection, Morbid obesity, History of pulmonary hypertension, On home oxygen therapy, Diabetes, Septic shock, Bilateral pneumonia Disposition: -09 OP ADMIT IP TO THIS HOSP Is pt being admited?: Yes Condition: Stable Time of Disposition: 01:49 (DR Guillen/hosp)
[2020-03-07] MEDS ORDERED: NORepinephrine/NS 4 MG-250 ML 4 MG/250 ML BAG IV SCH (21:00)
[2020-03-07] MEDS ORDERED: AZITHROMYCIN 500 MG in SODIUM CHLORIDE 0.9% 250ML 250 ML IV SCH (21:00)
[2020-03-07] MEDS ORDERED: cefTRIAXone/NS 2 GM/100 ML 2 GM/100 ML BAG IV SCH (21:00)
[2020-03-07 21:32] LABS: C-Reactive Protein 5.5 mg/dL (0.00-1.30)
--- NOTE | 2020-03-08 01:04 | Cat Scan Report ---
CT head/brain wo con INDICATION: Altered Mental Status. TECHNIQUE: Routine CT head without contrast. All CT scans at this location are performed using CT dos e reduction for [employer] by means of automated exposure control. COMPARISON: None. FINDINGS: BRAIN / INTRACRANIAL CONTENTS: No acute hemorrhage, mass effect, midline shift, or hydrocephalus. No appreciable acute large territorial or lacunar infarct. No chronic infarct or focal atrophy. Normal b rain volume and ventricular/sulcal size for age. ORBITS: No significant abnormality of visualized orbits. SINUSES / MASTOIDS: There is a mucous retention cyst in the left maxillary sinus. ADDITIONAL FINDINGS: None. IMPRESSION: 1. No acute intracranial abnormality. Signer Name: Bulmaro Darden MD Signed: 03/08/2020 1:00 AM Workstation Name: [id number]
--- NOTE | 2020-03-08 01:06 | Cat Scan Report ---
CT CHEST WITHOUT CONTRAST HISTORY: Respiratory failure COMPARISON: Chest x-ray done earlier on 03/07/2020. TECHNIQUE: Routine chest CT exam performed without contrast. Lack of intravenous contrast limits marco antonio luation of the vascular and solid organs.. All CT scans at this location are performed using CT dose reduction for [employer] by means of automated exposure control. CONTRAST: None. FINDINGS: CT CHEST: Lungs: There are diffuse patchy bilateral areas of consolidation and groundglass opacification. There is no pleural effusion or pneumothorax. Trachea and Bronchi: ET tube appears well positioned. Heart and Pericardium: Mild coronary atherosclerotic calcifications. Vasculature: No significant abnormality. Lymphatics: No lymphadenopathy. Osseous Structures: No aggressive appearing osseous lesions. Additional Findings: None IMPRESSION: 1. Diffuse bilateral patchy areas of consolidation and groundglass opacification likely reflecting mu ltifocal pneumonia, potentially viral pneumonia. Signer Name: Bulmaro Darden MD Signed: 03/08/2020 1:01 AM Workstation Name: [id number]
[2020-03-08] MEDS ORDERED: dexAMETHasone 4 MG/ML VIAL IV ONE (01:44)
[2020-03-08] MEDS ORDERED: ONDANSETRON 4 MG/2 ML INJ IV PRN (02:09)
[2020-03-08] MEDS ORDERED: MAGNESIUM HYDROXIDE (MOM) ORAL LIQD UDC PO PRN (02:09)
[2020-03-08] MEDS ORDERED: DEXTROSE 50% IN WATER (25GM) 50 ML SYRINGE IV PRN (02:09)
[2020-03-08] MEDS ORDERED: NORepinephrine/NS 4 MG-250 ML 4 MG/250 ML BAG IV ONE (02:15)
--- NOTE | 2020-03-08 02:22 | History and Physical Report ---
History of Present Illness Date of examination: 03/08/20 Date of admission: 03/08/2020 Chief complaint: Shortness of Breath History of present illness: Patient is a 49-year-old -[place] female with known history of hypertension, diabetes mellitus, pulmonary hypertension, morbid obesity, obstructive sleep apnea, on home oxygen was brought into the emergency room today for evaluation of shortness of breath. According to ER physician patient had complained of shortness of breath several hours prior to EMS arrival. Initial oxygen saturation was said to be in the mid 60s and increased about 98% on nonrebreather. Upon arrival in the emergency room patient was said to have desaturated and became altered. She later became unresponsive and went into arrest cardiopulmonary arrest. She was successfully resuscitated. Work-up in the emergency room reveals bilateral pneumonia and she was placed on empiric IV antibiotics. However during the course of stay in the emergency room patient coded on multiple occasions however all resuscitative measures proved futile. Past History Past Medical History: diabetes, hypertension, other (Pulmonary hypertension,Morbid Obesity) Past Surgical History: No surgical history Social history: smoking Family history: no significant family history Medications and Allergies Allergies Allergy/AdvReac Type Severity Reaction Status Date / Time No Known Allergies Allergy Verified 03/07/20 19:56 Home Medications Medication Instructions Recorded Confirmed Last Taken Type Aspirin [Aspirin BABY CHEW TAB] 81 tab PO DAILY 10/27/13 03/20/18 03/19/18 History Multivitamin [Multi-Vitamin Daily] 1 each PO DAILY 05/20/14 03/20/18 03/19/18 History Furosemide [Lasix TAB] 40 mg PO QDAY #30 tablet 03/14/17 03/20/18 03/19/18 Rx carvediloL [Coreg] 6.25 mg PO BID #60 tablet 03/14/17 03/20/18 03/19/18 Rx Insulin NPH/Regular [NovoLIN 70/30] 14 unit SUB-Q BIDDIAB 01/09/18 03/20/18 03/19/18 History Losartan [Cozaar] 100 mg PO QDAY 03/20/18 03/20/18 03/19/18 History NIFEdipine [Nifedipine ER] 60 mg PO DAILY 03/20/18 03/20/18 03/19/18 History Potassium Citrate [Potassium 10 meq PO DAILY 03/20/18 03/20/18 03/18/18 History Citrate ER] Spironolactone [Aldactone] 25 mg PO QDAY 03/20/18 03/20/18 03/19/18 History metFORMIN [Glucophage] 500 mg PO BID 03/20/18 03/20/18 03/19/18 History metOLazone [Metolazone] 2.5 mg PO 3XW 03/20/18 03/20/18 03/18/18 History Ondansetron [Zofran Odt] 4 mg PO Q8HR PRN #14 tab.rapdis 02/24/20 Unknown Rx traMADoL [Ultram 50 MG tab] 50 mg PO Q4HR PRN #14 tablet 02/24/20 Unknown Rx Active Meds: Active Medications Dextrose (D50w (25gm) Syringe) 50 ml IV Q30MIN PRN; Protocol PRN Reason: Hypoglycemia Dextrose (D50w (25gm) Syringe) 50 ml IV Q30MIN PRN; Protocol PRN Reason: Hypoglycemia Hydrophilic Ointment (Vaseline Lip Therapy) 1 applic TP Q2HR PRN PRN Reason: Dry Lips Ceftriaxone Sodium (Rocephin/Ns 2 Gm/100 Ml) 2 gm in 100 mls @ 200 mls/hr IV Q24H STEVEN; Protocol Last Admin: 03/07/20 22:38 Dose: 200 mls/hr Documented by: Azithromycin 500 mg/ Sodium (Chloride) 250 mls @ 250 mls/hr IV Q24H STEVEN; Protocol Last Admin: 03/07/20 20:48 Dose: 250 mls/hr Documented by: Norepinephrine (Levophed Drip 4 Mg/Ns 250 Ml) 4 mg in 250 mls @ 7.5 mls/hr IV TITR STEVEN; Protocol Last Titration: 03/07/20 20:52 Dose: 10 mcg/min, 37.5 mls/hr Documented by: Propofol (Diprivan 10 Mg/Ml) 1,000 mg in 100 mls @ 4.218 mls/hr IV TITR STEVEN; P rotocol Last Titration: 03/08/20 00:06 Dose: 15 mcg/kg/min, 12.654 mls/hr Documented by: Insulin Human Lispro (Humalog) 0 unit SUB-Q ACHS STEVEN; Protocol Magnesium Hydroxide (Milk Of Magnesia) 30 ml PO Q4H PRN PRN Reason: Constipation Multi-Ingred Cream/Lotion/Oil/Oint (Artificial Tears Ophth Oint) 1 applic OU Q4HR PRN PRN Reason: Dry Eye(s) Ondansetron HCl (Zofran) 4 mg IV Q8H PRN PRN Reason: Nausea And Vomiting Sodium Chloride (Sodium Chloride Flush Syringe 10 Ml) 10 ml IV BID STEVEN Sodium Chloride (Sodium Chloride Flush Syringe 10 Ml) 10 ml IV PRN PRN PRN Reason: LINE FLUSH Review of Systems ROS unobtainable: due to endotracheal tube Exam - Constitutional Vitals: Temp Pulse Resp BP Pulse Ox 103 H 43 H 143/81 87 03/08/20 00:00 03/08/20 00:00 03/08/20 00:00 03/08/20 00:00 General appearance: Present: no acute distress, well-nourished, obese - EENT Eyes: Present: PERRL, EOM intact ENT: hearing intact, clear oral mucosa, dentition normal - Neck Neck: Present: supple, normal ROM - Respiratory Respiratory effort: normal Respiratory: bilateral: rales - Cardiovascular Rhythm: regular Heart Sounds: Present: S1 & S2. Absent: gallop, systolic murmur, diastolic murmur, rub - Extremities Extremities: no ischemia, pulses intact, pulses symmetrical, No edema, Full ROM Peripheral Pulses: within normal limits - Abdominal General gastrointestinal: Present: soft, non-tender, non-distended, normal bowel sounds. Absent: mass - Integumentary Integumentary: Present: clear, warm, dry - Musculoskeletal Musculoskeletal: strength equal bilaterally - Psychiatric Psychiatric: cooperative - Neurologic Neurologic: CNII-XII intact, other (Intubated and Sedated) HEART Score - HEART Score Troponin: Troponin T < 0.010 ng/mL (0.00-0.029) 03/07/20 19:13 Results - Labs CBC & Chem 7: 03/07/20 19:13 03/07/20 20:57 Labs: Abnormal lab results 03/07/20 03/07/20 03/07/20 Range/Units 18:57 19:13 19:13 WBC 20.6 H (4.5-11.0) K/mm3 RBC 3.16 L (3.65-5.03) M/mm3 Hgb 8.8 L (10.1-14.3) gm/dl Hct 28.8 L (30.3-42.9) % Lymph % (Auto) 11.9 L (13.4-35.0) % [place] # (Auto) 0.9 H (0.0-0.8) K/mm3 Seg Neutrophils % 83.3 H (40.0-70.0) % Seg Neutrophils # 17.2 H (1.8-7.7) K/mm3 D-Dimer (0-234) ng/mlDDU ABG pO2 (80.0-90.0) mm Hg ABG HCO3 (20.0-26.0) mmol/L ABG Base Excess (-2.0-3.0) mmol/L ABG Hemoglobin (12.0-16.0) gm/dl Potassium (3.6-5.0) mmol/L Chloride (98-107) mmol/L Carbon Dioxide (22-30) mmol/L BUN (7-17) mg/dL Creatinine (0.6-1.2) mg/dL Glucose (65-100) mg/dL POC Glucose 251 H (70-105) Lactic Acid 3.40 H* (0.7-2.0) mmol/L Ferritin (10.0-200.0) ng/mL Lactate Dehydrogenase (91-180) units/L Total Creatine Kinase (30-135) units/L C-Reactive Protein (0.00-1.30) mg/dL NT-Pro-B Natriuret Pep (0-450) pg/mL Total Protein (6.3-8.2) g/dL Albumin (3.9-5) g/dL 03/07/20 03/07/20 03/07/20 Range/Units 19:13 19:13 19:35 WBC (4.5-11.0) K/mm3 RBC (3.65-5.03) M/mm3 Hgb (10.1-14.3) gm/dl Hct (30.3-42.9) % Lymph % (Auto) (13.4-35.0) % [place] # (Auto) (0.0-0.8) K/mm3 Seg Neutrophils % (40.0-70.0) % Seg Neutrophils # (1.8-7.7) K/mm3 D-Dimer (0-234) ng/mlDDU ABG pO2 170.9 H (80.0-90.0) mm Hg ABG HCO3 34.2 H (20.0-26.0) mmol/L ABG Base Excess 8.1 H (-2.0-3.0) mmol/L ABG Hemoglobin 8.2 L (12.0-16.0) gm/dl Potassium 5.3 H (3.6-5.0) mmol/L Chloride 95.9 L (98-107) mmol/L Carbon Dioxide 33 H (22-30) mmol/L BUN 39 H (7-17) mg/dL Creatinine 2.4 H (0.6-1.2) mg/dL Glucose 277 H (65-100) mg/dL POC Glucose (70-105) Lactic Acid (0.7-2.0) mmol/L Ferritin (10.0-200.0) ng/mL Lactate Dehydrogenase (91-180) units/L Total Creatine Kinase 264 H (30-135) units/L C-Reactive Protein (0.00-1.30) mg/dL NT-Pro-B Natriuret Pep 2343 H (0-450) pg/mL Total Protein 8.3 H (6.3-8.2) g/dL Albumin 3.0 L (3.9-5) g/dL 03/07/20 03/07/20 03/07/20 Range/Units 20:36 20:57 20:57 WBC (4.5-11.0) K/mm3 RBC (3.65-5.03) M/mm3 Hgb (10.1-14.3) gm/dl Hct (30.3-42.9) % Lymph % (Auto) (13.4-35.0) % [place] # (Auto) (0.0-0.8) K/mm3 Seg Neutrophils % (40.0-70.0) % Seg Neutrophils # (1.8-7.7) K/mm3 D-Dimer 3259.38 H (0-234) ng/mlDDU ABG pO2 (80.0-90.0) mm Hg ABG HCO3 (20.0-26.0) mmol/L ABG Base Excess (-2.0-3.0) mmol/L ABG Hemoglobin (12.0-16.0) gm/dl Potassium (3.6-5.0) mmol/L Chloride (98-107) mmol/L Carbon Dioxide (22-30) mmol/L BUN (7-17) mg/dL Creatinine (0.6-1.2) mg/dL Glucose 255 H (65-100) mg/dL POC Glucose (70-105) Lactic Acid 4.70 H* (0.7-2.0) mmol/L Ferritin (10.0-200.0) ng/mL Lactate Dehydrogenase 308 H (91-180) units/L Total Creatine Kinase (30-135) units/L C-Reactive Protein 5.50 H (0.00-1.30) mg/dL NT-Pro-B Natriuret Pep (0-450) pg/mL Total Protein (6.3-8.2) g/dL Albumin (3.9-5) g/dL 03/07/20 Range/Units 20:57 WBC (4.5-11.0) K/mm3 RBC (3.65-5.03) M/mm3 Hgb (10.1-14.3) gm/dl Hct (30.3-42.9) % Lymph % (Auto) (13.4-35.0) % [place] # (Auto) (0.0-0.8) K/mm3 Seg Neutrophils % (40.0-70.0) % Seg Neutrophils # (1.8-7.7) K/mm3 D-Dimer (0-234) ng/mlDDU ABG pO2 (80.0-90.0) mm Hg ABG HCO3 (20.0-26.0) mmol/L ABG Base Excess (-2.0-3.0) mmol/L ABG Hemoglobin (12.0-16.0) gm/dl Potassium (3.6-5.0) mmol/L Chloride (98-107) mmol/L Carbon Dioxide (22-30) mmol/L BUN (7-17) mg/dL Creatinine (0.6-1.2) mg/dL Glucose (65-100) mg/dL POC Glucose (70-105) Lactic Acid (0.7-2.0) mmol/L Ferritin 389.9 H (10.0-200.0) ng/mL Lactate Dehydrogenase (91-180) units/L Total Creatine Kinase (30-135) units/L C-Reactive Protein (0.00-1.30) mg/dL NT-Pro-B Natriuret Pep (0-450) pg/mL Total Protein (6.3-8.2) g/dL Albumin (3.9-5) g/dL Assessment and Plan - Patient Problems (1) Acute respiratory failure Current Visit: Yes Status: Acute Plan to address problem: Possibly secondary to underlying pneumonia. Patient was successfully intubated in the emergency room. (2) Bilateral pneumonia Current Visit: Yes Status: Acute Plan to address problem: Patient placed on empiric IV antibiotics. (3) Cardiopulmonary arrest with successful resuscitation Current Visit: Yes Status: Acute Plan to address problem: Patient successfully resuscitated initially in the emergency room. (4) Diabetes Current Visit: Yes Status: Acute Plan to address problem: We will monitor Accu-Cheks. (5) Morbid obesity Current Visit: Yes Status: Acute (6) Suspected COVID-19 virus infection Current Visit: Yes Status: Acute Plan to address problem: Patient placed on isolation precautions. We will request infectious disease evaluation. (7) Full code status Current Visit: Yes Status: Acute
[2020-03-08] MEDS ORDERED: VASOPRESSIN 20 UNIT in SODIUM CHLORIDE 0.9% 100 ML IV SCH (03:00)
[2020-03-08 04:19] LABS: ABG Base Excess -4.6 mmol/L (-2.0-3.0); ABG HCO3 22.3 mmol/L (20.0-26.0); ABG Methemoglobin 0.4 % (0.0-1.5); ABG Oxygen Saturation 98.2 % (95.0-99.0); ABG PCO2 50.3 mm Hg; ABG PH 7.265 pH Units (7.350-7.450); ABG PO2 128.1 mm Hg (80.0-90.0)
[2020-03-08] MEDS ORDERED: EPINEPHrine 1 MG/1 ML 8 MG in SODIUM CHLORIDE 0.9% 250ML 242 ML IV SCH (04:30)
[2020-03-08] MEDS ORDERED: EPINEPHrine 1 MG/10 ML SYRINGE ONE (05:16)
[2020-03-08 05:57] VITALS: BP 70/50
[2020-03-08] MEDS ORDERED: INSULIN LISPRO 100 UNIT/ML VIAL 3 mL SUB-Q SCH (07:30)
--- NOTE | 2020-03-08 07:55 | Event Note ---
Date: 03/08/20 49-year-old female with known history of sleep apnea, pulmonary hypertension who arrested while in the emergency room and being treated for bilateral pneumonia upon evaluation was coded several times in the emergency room today. All resuscitative measures according to ACLS protocol proved futile. Upon exam pupils were fixed and dilated. No response to sternal rub or verbal command Chest: No breath sounds Cardiovascular exam: No peripheral pulses and no heart sounds Abdomen: Distended Extremities: Cold and clammy Central nervous system: No reflexes Patient pronounced on March 08, 2020 at 4:45 AM. Patient's mother and daughter were promptly informed. Condolences were offered.
== END 2020-03-08 09:00 ==
LOC: ED 18:23 → CC1 03-08 01:49
PROVIDERS: ADMIT Internal Medicine Geriatric Medicine; ATTEND Internal Medicine Geriatric Medicine
DX: J96.00 Acute respiratory failure, unspecified whether with hypoxia or hypercapnia (principal); J18.9 Pneumonia, unspecified organism; I46.9 Cardiac arrest, cause unspecified; I10 Essential (primary) hypertension; E11.9 Type 2 diabetes mellitus without complications; E66.01 Morbid (severe) obesity due to excess calories; R65.21 Severe sepsis with septic shock; Z86.79 Personal history of other diseases of the circulatory system; Z99.81 Dependence on supplemental oxygen; Z79.82 Long term (current) use of aspirin; Z79.84 Long term (current) use of oral hypoglycemic drugs; Z79.4 Long term (current) use of insulin; Z68.42 Body mass index [BMI] 45.0-49.9, adult
CPT/HCPCS: 70450; 71045; 71250; 80053; 82140; 82550; 82728; 82803; 82947; 82962; 83615; 83880; 84145; 84484; 85025; 85379; 86140; 87040; 87070; 87205; 93005; 94002; 96365; 96367; 99291; 99292; G0378; J0171; J0456; J0696; J2704; J7030; J7050; 99281